=== PATIENT | male | born 1940 | race Caucasian/White ===

== ENCOUNTER 2016-03-14 16:41 | Emergency (ER) | payer MEDICARE ==
[2016-03-14 17:12] VITALS: BP 128/76
--- NOTE | 2016-03-14 19:23 | ERNOTE ---
Psychological HPI - Date Date of Service: 03/14/16 - General Chief Complaint: Anxiety Source: patient Exam Limitations: no limitations - Immun/Allergies/Home Medications Allergies/Adverse Reactions: Allergies codeine [Codeine] Allergy (Verified 03/14/16 17:12) Nausea ketorolac tromethamine [From Toradol] Adverse Reaction (Verified 03/14/16 17:12) Home Medications: HOME MEDICATIONS Multivitamins [Multivitamin Pawan] 1 cap PO DAILY 07/09/13 [Last Taken 09:00] Albuterol Sulfate [Albuterol Sulfate 2.5 MG/0.5ML] 2.5 mg IH Q6HRT #0 vial.neb 07/12/13 [Last Taken 04/29/15 09:00] Albuterol Sulfate [Ventolin HFA] 2 puff IH Q6H PRN 09/15/15 [Last Taken Unknown] Acetaminophen [Tylenol] 500 mg PO Q3H6XD PRN 09/30/15 [Last Taken Unknown] Theophylline Anhydrous [[place]-Dur] 300 mg PO BID tab.sr.12h 10/04/15 [Last Taken Unknown] Polyethylene Glycol 3350 [Miralax] 17 gm PO DAILY #30 btl 10/29/15 [Last Taken Unknown] ALPRAZolam [Xanax] 1 mg PO TID PRN 01/21/16 [Last Taken Unknown] Albuterol Sulfate/Ipratropium [Duoneb 2.5-0.5MG/3ML Soln] 3 ml IH QID 01/21/16 [ Last Taken Unknown] Potassium Chloride [Klor-Con 10] 10 meq PO MOWEFR 01/21/16 [Last Taken Unknown] Tiotropium [place] [Spiriva] 1 cap IH DAILY 01/21/16 [Last Taken Unknown] predniSONE [Prednisone] 10 mg PO DAILY 01/21/16 [Last Taken Unknown] Cephalexin Monohydrate [Keflex] 500 mg PO QID #40 cap 02/27/16 [Last Taken Unknown] Enalapril Maleate [Vasotec] 5 mg PO HS #30 tablet 03/14/16 [Last Taken Unknown] FLUoxetine HCL [Prozac] 20 mg PO DAILY #30 cap 03/14/16 [Last Taken Unknown] Furosemide [Lasix] 20 mg PO DAILY@1100 #14 tablet 03/14/16 [Last Taken Unknown] - History of Present Illness Narrative: Pt. comes in with c/o panic attack that lasted for three minutes this afternoon and has resolved at this time. Pt. is supposed to be on Prozac but has been out of his medications for two weeks. pt. staes taht he felt his heart racing, and was diaphoretic and scared during episode. Pt. states that this has happened in the past but the prozac kept it from occurring. Pt. also has a hx of COPD and CAD and has been out of his heart medications as well. Time Seen by Provider: 03/14/16 19:05 Review of Systems - Review of Systems Constitutional: Present: no symptoms reported. Absent: recent illness, fever, chills, weakness, fatigue, malaise EYE: Present: no symptoms reported ENT: Present: no symptoms reported Respiratory: Present: no symptoms reported. Absent: shortness of breath, cough , wheezing Cardiology: Present: no symptoms reported. Absent: chest pain, palpitations, edema Gastrointestinal/Abdominal: Present: no symptoms reported. Absent: nausea, vomiting, diarrhea Genitourinary: Present: no symptoms reported Musculoskeletal: Present: no symptoms reported. Absent: back pain, joint pain Skin: Present: no symptoms reported. Absent: rash, change in color Neurological: Present: anxiety. Absent: dizziness/light-headedness, numbness, tingling Endocrine: Present: no symptoms reported Psych: Present: anxiety All Other Systems: All systems neg except as marked - Patient's Past Medical History Patient History - Medical: Anxiety, Depression, GERD, Kidney stone, Osteoarthritis, Renal Failure, UTI'S Patient History - Cardiac/Respiratory: CHF, COPD, Hypertension Patient History - Cancer: No Hx of Cancer Patient History - Surgical Procedures: Cholecystectomy, Colonoscopy, EGD, T & A , Other - Family History Mother Family History - Medical: Family History - Cardiac/Respiratory: Coronary Heart Disease, Hypertension Father Family History - Medical: , Depression, Other Family History - Cardiac/Respiratory: History Unknown Sister Family History - Medical: History Unknown Family History - Cardiac/Respiratory: Asthma, Hypertension - Social History Living Situations: home Smoking Status: Never smoker Have you smoked in the past 12 months: No Do you dip or chew tobacco: No Patient requests Smoking Cessation Consult: No Initiate information on Smoking Cessation: No Alcohol Use: none Drug Use: none Physical Exam - Physical Exam General Appearance: Present: wd/wn, alert, no apparent distress Eye Exam: Normal inspection: bilateral, PERRL: bilateral, EOMI: bilateral Ears, Nose, Throat: Present: normal ENT inspection, hearing grossly normal, normal pharynx Neck: Present: normal inspection, nontender. Absent: lymphadenopathy (R), lymphadenopathy (L) Respiratory: Present: no respiratory distress, no accessory muscle use, chest nontender, decreased breath sounds Cardiovascular/Chest: Present: regular rate, rhythm, normal peripheral pulses, systolic murmur Gastrointestinal/Abdominal: Present: normal bowel sounds, nontender, soft, no organomegaly, distended. Absent: hepatomegaly Back Exam: Present: normal inspection, normal range of motion, no CVA tenderness , no vertebral tenderness Extremity Exam: Present: normal inspection, non-tender, no edema, normal range of motion Neurological Exam: Present: alert, oriented, normal mood/affect, no motor/ sensory deficits, insurance verification representative II-XII nml as tested, normal cerebellar test Skin Exam: Present: normal color, warm/dry. Absent: pallor, skin rash ED Progress - Date and Time Seen: Date and Time: 03/14/16 19:22 Discussed with pt. 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 03/14/16 20:[address] Oglesby and as pt. is asymptomatic at this time for his CHF we feel comfortable discharging him home with medication refills. - Results and Orders Patient's Lab Results:: I have reviewed the patient's lab results. - Vital Signs Patient's Vital Signs:: I have reviewed the patient's vital signs. Vital Signs: Vital Signs 03/14/16 17:10 Temperature 36.1 C L Pulse Rate 109 H Respiratory 19 Rate Blood Pressure 128/76 O2 Sat by Pulse 95 Oximetry - EKG EKG: other - SR with left axis deviation IVCD no acute changes EKG read: Interp. by me - Progress/Reassessment Chief Complaint: Anxiety Departure Clinical Impression: Chronic obstructive lung disease, Anxiety CHF (congestive heart failure) Qualifiers: Congestive heart failure type: unspecified congestive heart failure type Congestive heart failure chronicity: acute on chronic Qualified Code(s): I50.9 - Heart failure, unspecified - Departure Disposition: [facility] self-care Condition: Good Instructions: Panic Attacks, [id number], Heart Failure, [id number] Additional Instructions: Please follow up with Dr Samuel Bach as planned. Prescriptions: Enalapril Maleate [Vasotec] 5 mg PO HS #30 tablet FLUoxetine HCL [Prozac] 20 mg PO DAILY #30 cap Furosemide [Lasix] 20 mg PO DAILY@1100 #14 tablet
[2016-03-14 19:38] LABS: Hematocrit 43.4 % (42.0-52.0); Hemoglobin 13.8 gm/dL (13.5-18.0); Mean Cell Volume 94.3 fl (78-100); Mean Corpuscular Hgb Conc 31.8 g/dl (32-36); Mean Platelet Volume 10.1 fl (6.0-9.5); Neutrophil # 6.7 K/mm3 (1.3-6.0); Neutrophil % 76.1 % (42-75.0); Platelet Count 395 K/mm3 (150-450); Red Cell Distribution Width 14.8 % (11.5-14.0); White Blood Count 8.8 K/mm3 (4.0-10.5)
[2016-03-14 19:59] LABS: Albumin * 2.8 gm/dl (3.4-5.0); Anion Gap 12.1 mmol/L (6.8-13.8); BUN/Creatinine Ratio 15.4 (9.0-21.6); Bilirubin, Total 0.2 mg/dL (0.0-1.1); Ca. Corrected For Albumin 9.5 mg/dL (8.4-10.2); Calcium * 8.9 mg/dL (7.9-10.9); Carbon Dioxide 27.1 mmol/L (24-32.6); Potassium 5.2 mmol/L (3.4-4.6); Total Protein 6.3 gm/dL (6.2-8.2)
[2016-03-14 20:04] LABS: Troponin I 0.042 ng/ml (0.00-0.10)
[2016-03-14] MEDS ORDERED: FUROSEMIDE 40 MG TABLET PO ONE (20:22)
[2016-03-14] MEDS ORDERED: FUROSEMIDE 40 MG TABLET ONE (21:09)
[2016-03-14 21:37] LABS: Urine Bilirubin Negative (NEGATIVE); Urine Blood Negative /ul (NEGATIVE); Urine Ketone Negative (NEGATIVE); Urine Nitrite Negative (NEGATIVE); Urine Protein Negative (NEGATIVE); Urine Specific Gravity 1.025 SP.GR. (1.005-1.030); Urine Urobilinogen Normal (NORMAL); Urine pH 6.5 pH (5.0-7.0)
[2016-03-14 21:51] LABS: Urine Appearance Clear; Urine Bacteria None Seen; Urine Color Yellow; Urine RBC 0-5 /hpf (0-5); Urine WBC 0-5 /hpf (0-5)
== END 2016-03-14 22:15 | disposition home or self-care (01) ==
LOC: ER 16:41
DX: J44.9 Chronic obstructive pulmonary disease, unspecified (principal); F41.1 Generalized anxiety disorder; I50.9 Heart failure, unspecified; I10 Essential (primary) hypertension; F32.9 Major depressive disorder, single episode, unspecified

== ENCOUNTER 2016-03-17 10:16 | Emergency (ER) | payer MEDICARE ==
[2016-03-17] MEDS ORDERED: ACETAMINOPHEN 325 MG TABLET PO ONE (10:32)
[2016-03-17] MEDS ORDERED: HYDROcodone/ACETAMINOPHEN 1 EACH TABLET PO ONE (10:32)
--- NOTE | 2016-03-17 10:45 | ERNOTE ---
Lower Extremity HPI - Narrative Date of Service: 03/17/16 - General Lower Extremities Pain: knee: left Source: patient, EMS, RN notes reviewed Exam Limitations: other - Poor historian - Immun/Allergies/Home Medications Immunizations: IMMUNIZATION HX Immunizations Up to Date Yes History of Influenza Vaccine Yes Hx Pneumococcal Vaccination Yes Allergies/Adverse Reactions: Allergies Allergy/AdvReac Type Severity Reaction Status Date / Time codeine [Codeine] Allergy Nausea Verified 03/14/16 17:12 ketorolac tromethamine AdvReac Verified 03/14/16 17:12 [From Toradol] Home Medications: HOME MEDICATIONS Multivitamins [Multivitamin Pawan] 1 cap PO DAILY 07/09/13 [Last Taken 09:00] Albuterol Sulfate [Albuterol Sulfate 2.5 MG/0.5ML] 2.5 mg IH Q6HRT #0 vial.neb 07/12/13 [Last Taken 04/29/15 09:00] Albuterol Sulfate [Ventolin HFA] 2 puff IH Q6H PRN 09/15/15 [Last Taken Unknown] Acetaminophen [Tylenol] 500 mg PO Q3H6XD PRN 09/30/15 [Last Taken Unknown] Theophylline Anhydrous [Chato-Dur] 300 mg PO BID tab.sr.12h 10/04/15 [Last Taken Unknown] Polyethylene Glycol 3350 [Miralax] 17 gm PO DAILY #30 btl 10/29/15 [Last Taken Unknown] ALPRAZolam [Xanax] 1 mg PO TID PRN 01/21/16 [Last Taken Unknown] Albuterol Sulfate/Ipratropium [Duoneb 2.5-0.5MG/3ML Soln] 3 ml IH QID 01/21/16 [ Last Taken Unknown] Potassium Chloride [Klor-Con 10] 10 meq PO MOWEFR 01/21/16 [Last Taken Unknown] Tiotropium [place] [Spiriva] 1 cap IH DAILY 01/21/16 [Last Taken Unknown] predniSONE [Prednisone] 10 mg PO DAILY 01/21/16 [Last Taken Unknown] Cephalexin Monohydrate [Keflex] 500 mg PO QID #40 cap 02/27/16 [Last Taken Unknown] Enalapril Maleate [Vasotec] 5 mg PO HS #30 tablet 03/14/16 [Last Taken Unknown] FLUoxetine HCL [Prozac] 20 mg PO DAILY #30 cap 03/14/16 [Last Taken Unknown] Furosemide [Lasix] 20 mg PO DAILY@1100 #14 tablet 03/14/16 [Last Taken Unknown] - History of Present Illness Narrative: Reid is a 76-year-old male brought to the emergency department by ambulance for left knee pain that began this morning. He reports having trouble with the knee off and on for years, but he was getting a sweater out of his closet when the knee "went out on him" earlier this morning. He has since had difficulty bearing weight on the extremity. He reports taking 2 Advil for pain. He resides at the [facility]. He was last here 3 days ago for anxiety. Occurred: this morning Location of Incident: home Method of Injury: Reports: no apparent injury Modifying Factors - (Improves): Reports: pain medication, rest Modifying Factors - (Worsens): Reports: movement Associated Symptoms: Denies: snapping, popping sensation Other Injuries: Reports: none Subsequent Symptoms: Denies: sensory loss, numbness, motor loss Prior Treament: Reports: recently seen, similar symptoms before Review of Systems - Review of Systems Constitutional: Absent: fever, chills EYE: Present: no symptoms reported ENT: Present: no symptoms reported Respiratory: Present: no symptoms reported Cardiology: Present: edema. Absent: claudication Gastrointestinal/Abdominal: Present: no symptoms reported Genitourinary: Present: no symptoms reported Musculoskeletal: Present: joint pain. Absent: joint swelling Skin: Absent: lesions, lumps, change in color Neurological: Absent: weakness, numbness, tingling Endocrine: Present: no symptoms reported Hematologic/Lymphatic: Present: no symptoms reported Psych: Present: anxiety - Patient's Past Medical History Patient History - Medical: Anxiety, Depression, GERD, Kidney stone, Osteoarthritis, Renal Failure, UTI'S Patient History - Cardiac/Respiratory: CHF, COPD, Hypertension Patient History - Cancer: No Hx of Cancer Patient History - Surgical Procedures: Cholecystectomy, Colonoscopy, EGD, T & A , Other - Family History Mother Family History - Medical: Family History - Cardiac/Respiratory: Coronary Heart Disease, Hypertension Father Family History - Medical: , Depression, Other Family History - Cardiac/Respiratory: History Unknown Sister Family History - Medical: History Unknown Family History - Cardiac/Respiratory: Asthma, Hypertension - Social History Living Situations: assisted living Smoking Status: Former smoker Have you smoked in the past 12 months: No Alcohol Use: none Drug Use: none Physical Exam - Physical Exam General Appearance: Present: wd/wn, alert, no apparent distress, other - dressed appropriately but somewhat dirty with what appears to be stool on his sock Respiratory: Present: no respiratory distress, no accessory muscle use Cardiovascular/Chest: Present: normal peripheral pulses Extremity Exam: Present: normal inspection, decreased range of motion - Left knee, painful, pedal edema, extremity edema - mild pitting edema to feet, ankles and lower legs bilaterally, other - no effusion, deformity or discoloration to left knee, anterior knee tender to palpation just below patella. Absent: joint redness, joint swelling Neurological Exam: Present: alert, oriented, normal mood/affect, no motor/ sensory deficits Skin Exam: Present: normal color, warm/dry ED Progress - Vital Signs Patient's Vital Signs:: I have reviewed the patient's vital signs. Vital Signs: Vital Signs 03/17/16 10:19 Temperature 36.0 C L Pulse Rate 89 Respiratory 16 Rate Blood Pressure 100/44 O2 Sat by Pulse 97 Oximetry - X-Ray X-Ray #1 X-Ray: knee - Left Interpretation: Reviewed by me X-ray Comments: THREE VIEW LEFT KNEE COMPARISON: None Technique: AP, oblique, and lateral views of the knee were obtained. Findings: There is mild diffuse osteopenia. The joint spaces demonstrate mild diffuse narrowing without significant spurring. The patella is normally positioned on the AP and lateral projections. Again seen is a 10 mm osteochondral lesion involving the articulating cartilage of the medial femoral condyle. I do not see evidence for fracture, dislocation, or significant degenerative spurring. There is a small joint effusion. If there is clinical concern for internal derangement, followup MRI is recommended. IMPRESSION: 1. MILD DIFFUSE OSTEOPENIA. 2. SMALL JOINT EFFUSION. 3. 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 4. NO DEFINABLE ACUTE OSSEOUS ABNORMALITY. Electronically signed by Domingo Cummins M.D.. - Progress/Reassessment Chief Complaint: Lower Extremity Pain/ Injury Progress:: Improved Progress Note-Subjective: Some improvement in pain after meds, ambulated with cane with 1 assist from nursing staff. Orthopedics contacted for a follow up appt - patient had an appt. on Mar.09 but did not show up. Rescheduled for but will not be given another appt if he misses again. Departure Clinical Impression: Knee pain, left Qualifiers: Chronicity: chronic Qualified Code(s): M25.562 - Pain in left knee; G89.29 - Other chronic pain - Departure Disposition: [facility] self-care Condition: Good Instructions: Knee Pain, [id number] Additional Instructions: Take Tylenol for pain - you should not take Advil because of your kidney problems See orthopedics as scheduled - IF YOU MISS THIS APPOINTMENT THEY WILL NOT GIVE YOU ANOTHER ONE Referrals: Faheem Moe, PAC [[facility]] - 03/22/16 1:00 pm
[2016-03-17] MEDS ORDERED: ACETAMINOPHEN 325 MG TABLET ONE (11:15)
[2016-03-17] MEDS ORDERED: HYDROcodone/ACETAMINOPHEN 1 EACH TABLET ONE (11:15)
[2016-03-17 11:36] VITALS: BP 90/50
== END 2016-03-17 12:22 | disposition home or self-care (01) ==
LOC: ER 10:16
DX: M25.562 Pain in left knee (principal); G89.29 Other chronic pain; Z87.891 Personal history of nicotine dependence; Z90.49 Acquired absence of other specified parts of digestive tract

== ENCOUNTER 2016-05-25 17:54 | Emergency (ER) | payer MEDICARE ==
--- OUTSIDE RECORDS SUMMARY | 2016-05-25 18:09 | XMS REPORT | Continuity of Care Document ---
:1940 Author Organization [facility] ([facility]) Address [place] [address] Phone [phone] Care Team Providers Name Role Phone Lela Hensley Primary Care Provider [phone] Source Comments This disclosure is being made pursuant to the Care Everywhere program, applicable federal and state laws, and may not contain all informaitonavailable regarding this patient.[facility] ([facility]) Active Allergies and Adverse Reactions Allergen Noted Date Severity Reactions Comments Codeine 05/20/2012 Nausea & Vomiting Current Medications Prescription Sig. Disp. Refills Start Date End Date Status theophylline (GENNA-DUR) Take 300 mg by Active 300 mg XR tablet mouth 2 times daily. ALPRAZolam (XANAX) 1 mg Take 1 mg by mouth Active tablet 2 times daily. fluoxetine (PROZAC) 40 mg Take 40 mg by Active capsule mouth daily. enalapril 5 mg tablet Take 5 mg by mouth Active daily. predniSONE 5 mg tablet Take 5 mg by mouth Active daily. 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 COPD (chronic obstructive pulmonary disease) 11/09/2010 GERD (gastroesophageal reflux disease) 11/09/2010 Diverticulitis 11/09/2010 Anxiety 11/09/2010 Social History Tobacco Use Types Packs/Day Years Used Date Former Smoker Cigarettes 2 40 Quit: 03/05/1992 Smokeless Tobacco: Never Used Alcohol Use Drinks/Week oz/Week Comments No prior abuse Last Filed Vital Signs Vital Sign Reading Time Taken Blood Pressure 110/70 11/09/2010 9:32 AM CDT Pulse 96 11/09/2010 9:32 AM CDT Temperature 36.6 C (97.9 F) 11/09/2010 9:32 AM CDT Respiratory Rate 20 11/09/2010 9:32 AM CDT Height 1.778 m (5' 10") 10/16/2009 12:30 PM CDT Weight 121.564 kg (268 lb) 11/09/2010 9:32 AM CDT Body Mass Index 38.45 11/09/2010 9:32 AM CDT Oxygen Saturation 96% 10/16/2009 12:30 PM CDT Plan of Care Health Maintenance Due Date Last Done Comments Hepatitis B Vaccine (1 of 3 - Primary Series) 1940 Tdap Vaccine 01/08/1951 Lipid Disorder Screening 01/08/1958 Td Vaccine 01/08/1958 Colonoscopy 01/08/1990 Zoster Vaccine 2000 Pneumococcal Vaccine (1 of 2 - PCV13) 01/08/2005 Influenza Vaccine: Seasonal (#1) 10/04/2015 Results from Last 3 Months Not on file
--- OUTSIDE RECORDS SUMMARY | 2016-05-25 18:09 | XMS REPORT | Continuity of Care Document ---
:1940 Author Organization [employer] [place] [address] Care Team Providers Name Role Phone Lela Hensley Primary Care Provider [phone] Source Comments This disclosure is being made pursuant to the [employer] program and maynot contain all information available regarding this patient.[employer] Active Allergies and Adverse Reactions Allergen Noted Date Severity Reactions Comments Codeine 12/08/2013 Other (See Comments) Current Medications Be aware that medications may not be up to date as of this document. Alwaysverify current medications with the patient. Prescription Sig. Disp. Refills Start Date End Date Status albuterol (PROVENTIL HFA) Inhale into the Active 108 (90 BASE) MCG/ACT lungs. 2 puff(s) 2 inhaler times per day and as needed, not to exceed 4 times per day ALPRAZolam (XANAX) 0.5 MG Take 0.5 mg by Active tablet mouth. 1 tab(s) By Mouth 2 Times A Day prn Coenzyme Q-10 100 MG Take by mouth. Active capsule fluoxetine (PROZAC) 40 MG Take 40 mg by Active capsule mouth. 1 capsule(s) by mouth before noon predniSONE (DELTASONE) 5 Take 5 mg by mouth. Active MG tablet 1 tab(s) By Mouth Daily guaifenesin (BIDEX) 400 Take 300 mg by Active MG TABS mouth. Active Problems Not on file Social History Tobacco Use Types Packs/Day Years Used Date Former Smoker Last Filed Vital Signs Vital Sign Reading Time Taken Blood Pressure 110/70 12/02/2012 10:22 AM CDT Pulse 88 08/19/2012 11:14 AM CDT Temperature 37.8 C (100.1 F) 08/19/2012 11:17 AM CDT Respiratory Rate 20 08/19/2012 11:14 AM CDT Height 1.778 m (5' 10") 12/02/2012 10:22 AM CDT Weight 87.091 kg (192 lb) 12/02/2012 10:22 AM CDT Body Mass Index 27.55 12/02/2012 10:22 AM CDT Oxygen Saturation - - Plan of Care Health Maintenance Due Date Last Done Comments Tetanus/Pertussis (1 - Tdap) 01/08/1959 Colonoscopy 01/08/1990 Well Adult Visit 01/08/1990 Zoster Vaccine 60+ 2000 Pneumococcal Low/Medium Risk 65+ (1 of 2 - PCV13) 01/08/2005 Retired-INFLUENZA VACCINE 11/04/2015 Results from Last 3 Months Not on file
--- NOTE | 2016-05-25 18:14 | ERNOTE ---
Dyspnea - General Presenting Symptoms: shortness of breath Time Seen by Provider: 05/25/16 17:57 Source: patient Exam Limitations: no limitations - Immun/Allergies/Home Medications Immunizations: IMMUNIZATION HX Immunizations Up to Date Yes History of Influenza Vaccine Yes Hx Pneumococcal Vaccination Yes Allergies/Adverse Reactions: Allergies codeine [Codeine] Allergy (Verified 05/25/16 18:14) Nausea ketorolac tromethamine [From Toradol] Adverse Reaction (Verified 05/25/16 18:14) Home Medications: HOME MEDICATIONS Multivitamins [Multivitamin [place]aw[place]] 1 cap PO DAILY 07/09/13 [Last Taken 09:00] Albuterol Sulfate [Albuterol Sulfate 2.5 MG/0.5ML] 2.5 mg IH Q6HRT #0 vial.neb 07/12/13 [Last Taken 04/29/15 09:00] Albuterol Sulfate [Ventolin HFA] 2 puff IH Q6H PRN 09/15/15 [Last Taken Unknown] Acetaminophen [Tylenol] 500 mg PO Q3H PRN 09/30/15 [Last Taken Unknown] Theophylline Anhydrous [[place]-Dur] 300 mg PO BID tab.sr.12h 10/04/15 [Last Taken Unknown] ALPRAZolam [Xanax] 1 mg PO TID PRN 01/21/16 [Last Taken Unknown] Albuterol Sulfate/Ipratropium [Duoneb 2.5-0.5MG/3ML Soln] 3 ml IH QID 01/21/16 [ Last Taken Unknown] Tiotropium [place] [Spiriva] 1 cap IH DAILY 01/21/16 [Last Taken Unknown] predniSONE [Prednisone] 10 mg PO DAILY 01/21/16 [Last Taken Unknown] Enalapril Maleate [Vasotec] 5 mg PO HS #30 tablet 03/14/16 [Last Taken Unknown] FLUoxetine HCL [Prozac] 20 mg PO DAILY #30 cap 03/14/16 [Last Taken Unknown] Fluconazole [Diflucan] 200 mg PO DAILY 05/25/16 [Last Taken Unknown] Furosemide [Lasix] 40 mg PO DAILY 05/25/16 [Last Taken Unknown] Guaifenesin/Dextromethorphan [Mucinex Dm ER 600-30 mg Tablet] 1 each PO BID [Last Taken Unknown] Nystatin 30 gm TP BID 05/25/16 [Last Taken Unknown] Oxycodone HCl/Acetaminophen [Oxycodone-Acetaminophen 5-325] 1 each PO QID PRN [Last Taken Unknown] Polyethylene Glycol 3350 [Gavilax] 17 gm PO DAILY 05/25/16 [Last Taken Unknown] Tamsulosin HCl [Flomax] 0.4 mg PO DAILY 05/25/16 [Last Taken Unknown] - History of Present Illness Narrative: Patient started to have a cough and shortness of breath yesterday, does not bring up much sputum, denies any chest pain. In the [facility] he had O2 saturations in the 70's and 80's. He has a history of COPD, received breathing treatments by EMS Date (Duration): 05/24/16 Treatment FIELD SERVICES DIRECTOR: paramedics, albuterol Initiating event: Reports: upper resp illness. Denies: out of meds Frequency of episodes: Reports: occassional episodes Modifying Factors - (Improves): Reports: activity Modifying Factors (Worsens): Reports: activity Associated Symptoms-Dyspnea: Denies: fever/chills, sweating Prior Treatment: Denies: recently seen, currently on antibiotics Review of Systems - Review of Systems Constitutional: Absent: fever ENT: Present: nasal drainage. Absent: sore throat Respiratory: Present: See HPI, shortness of breath, cough Cardiology: Absent: chest pain Gastrointestinal/Abdominal: Absent: nausea, vomiting, diarrhea, abdominal pain Genitourinary: Present: other - unchanged chronic problems Neurological: Absent: headache, dizziness/light-headedness - Patient's Past Medical History Patient History - Medical: Anxiety, Depression, GERD, Kidney stone, Osteoarthritis, Renal Failure, UTI'S Patient History - Cardiac/Respiratory: COPD Patient History - Cancer: No Hx of Cancer Patient History - Surgical Procedures: Cholecystectomy, Colonoscopy, EGD, T & A , Other Patient History - Other: None - Family History Mother Family History - Medical: Family History - Cardiac/Respiratory: Coronary Heart Disease, Hypertension Father Family History - Medical: , Depression, Other Family History - Cardiac/Respiratory: History Unknown Sister Family History - Medical: History Unknown Family History - Cardiac/Respiratory: Asthma, Hypertension - Social History Living Situations: assisted living Abuse History: No History of abuse Psych History: Hx of Anxiety, Hx of Depression, Current tx/ever been on anti- depressants or anti-anxiety meds Smoking Status: Former smoker Alcohol Use: none Drug Use: none - Immunizations Immunizations Up to Date: Yes Hx Pneumococcal Vaccination: Yes History of Influenza Vaccine: Yes Physical Exam - Physical Exam General Appearance: Present: wd/wn, alert, no apparent distress, obese Eye Exam: Normal inspection: bilateral Ears, Nose, Throat: Present: normal ENT inspection, normal pharynx Neck: Present: normal inspection Respiratory: Present: no accessory muscle use, respiratory distress - slight, decreased breath sounds, expiration (prolonged), wheezing - few, other - talks in 7word sentences Cardiovascular/Chest: Present: regular rate, rhythm, no murmur Gastrointestinal/Abdominal: Present: normal bowel sounds, nontender, nondistended, soft Extremity Exam: Present: no edema Neurological Exam: Present: alert, oriented, normal mood/affect Skin Exam: Present: normal color, warm/dry ED Progress - Results and Orders Patient's Lab Results:: I have reviewed the patient's lab results. - Vital Signs Patient's Vital Signs:: I have reviewed the patient's vital signs. Vital Signs: Vital Signs 05/25/16 17:54 Temperature 36.7 C Pulse Rate 100 Respiratory 19 Rate O2 Sat by Pulse 97 Oximetry - EKG EKG: NSR, unchanged from - 03/14/2016, other - intraventriclar conduction delay EKG read: Interp. by me - X-Ray X-Ray #1 X-Ray: chest - chronic no acute changes Interpretation: Reviewed by me - Progress/Reassessment Chief Complaint: Dyspnea Progress Note-Subjective: 05/25/16 18:33 Patient comfortable and talking, o2 sat 96 on RA 05/25/16 19:34 discussed results and plan to send patient back on steroid boost, was started on mucinex earlier today patient calm and comfortable, O2 sat 96-97% on RA when talking about transfer to care center patient gets a coughing fit. Departure Clinical Impression: COPD exacerbation - [place] [facility] [place]
[2016-05-25 18:20] LABS: Hematocrit 42.4 % (42.0-52.0); Mean Cell Volume 93.4 fl (78-100); Mean Corpuscular Hemoglobin 30.8 pg (27-31); Mean Platelet Volume 11.1 fl (6.0-9.5); Neutrophil # 5.7 K/mm3 (1.3-6.0); Neutrophil % 72.7 % (42-75.0); Platelet Count 196 K/mm3 (150-450); Red Blood Count 4.54 M/mm3 (4.7-6.0); Red Cell Distribution Width 14.9 % (11.5-14.0); White Blood Count 7.8 K/mm3 (4.0-10.5)
[2016-05-25] MEDS ORDERED: predniSONE 20 MG TABLET ONE (18:41)
[2016-05-25] MEDS: predniSONE 20 MG TABLET PO ONE (18:43)
[2016-05-25 18:44] LABS: Albumin * 3.7 gm/dl (3.4-5.0); Anion Gap 17.1 mmol/L (6.8-13.8); BUN/Creatinine Ratio 14.7 (9.0-21.6); Bilirubin, Total 0.6 mg/dL (0.0-1.1); Ca. Corrected For Albumin 9.2 mg/dL (8.4-10.2); Calcium * 9.3 mg/dL (7.9-10.9); Carbon Dioxide 25.9 mmol/L (24-32.6); Total Protein 7.5 gm/dL (6.2-8.2)
[2016-05-25 21:01] VITALS: BP 124/81
== END 2016-05-25 21:55 ==
LOC: ER 17:54
DX: J44.1 Chronic obstructive pulmonary disease with (acute) exacerbation (principal); Z87.891 Personal history of nicotine dependence

== ENCOUNTER 2016-05-31 12:26 | Inpatient (IN) | payer MEDICARE ==
--- NOTE | 2016-05-31 12:51 | ERNOTE ---
Medical Problem HPI - General Chief Complaint: Nausea/Vomiting Time Seen by Provider: 05/31/16 12:41 Source: patient, EMS Exam Limitations: no limitations - Immun/Allergies/Home Medications Immunizations: IMMUNIZATION HX Immunizations Up to Date Yes History of Influenza Vaccine Yes Hx Pneumococcal Vaccination Yes Allergies/Adverse Reactions: Allergies codeine [Codeine] Allergy (Verified 05/31/16 13:50) Nausea ketorolac tromethamine [From Toradol] Adverse Reaction (Verified 05/31/16 13:50) Home Medications: HOME MEDICATIONS Multivitamins [Multivitamin Pawan] 1 cap PO DAILY 07/09/13 [Last Taken 09:00] Albuterol Sulfate [Albuterol Sulfate 2.5 MG/0.5ML] 2.5 mg IH Q6HRT #0 vial.neb 07/12/13 [Last Taken 04/29/15 09:00] Albuterol Sulfate [Ventolin HFA] 2 puff IH Q6H PRN 09/15/15 [Last Taken Unknown] Acetaminophen [Tylenol] 500 mg PO Q3H PRN 09/30/15 [Last Taken Unknown] Theophylline Anhydrous [[place]] 300 mg PO BID tab.sr.12h 10/04/15 [Last Taken Unknown] ALPRAZolam [Xanax] 1 mg PO TID PRN 01/21/16 [Last Taken Unknown] Albuterol Sulfate/Ipratropium [Duoneb 2.5-0.5MG/3ML Soln] 3 ml IH QID 01/21/16 [ Last Taken Unknown] Tiotropium [place] [Spiriva] 1 cap IH DAILY 01/21/16 [Last Taken Unknown] predniSONE [Prednisone] 10 mg PO DAILY 01/21/16 [Last Taken Unknown] Enalapril Maleate [Vasotec] 5 mg PO HS #30 tablet 03/14/16 [Last Taken Unknown] FLUoxetine HCL [Prozac] 20 mg PO DAILY #30 cap 03/14/16 [Last Taken Unknown] Fluconazole [Diflucan] 200 mg PO DAILY 05/25/16 [Last Taken Unknown] Furosemide [Lasix] 40 mg PO DAILY 05/25/16 [Last Taken Unknown] Nystatin 30 gm TP BID 05/25/16 [Last Taken Unknown] Polyethylene Glycol 3350 [Gavilax] 17 gm PO DAILY 05/25/16 [Last Taken Unknown] Tamsulosin HCl [Flomax] 0.4 mg PO DAILY 05/25/16 [Last Taken Unknown] guaiFENesin/DEXTROMETHORPHAN [Mucinex Dm ER 600-30 mg Tablet] 1 each PO BID [Last Taken Unknown] oxyCODONE HCL/ACETAMINOPHEN [Oxycodone-Acetaminophen 5-325] 1 each PO QID PRN [Last Taken Unknown] - History of Present History Narrative: Patient started to develop as epigastric abdominal pain with nausea and vomiting at approximately midnight last night. He describes the pain as cramping and burning moderate to severe in intensity and has not been able keep anything down for approximately the last 12 hours. Timing: constant Severity: moderate Modifying Factors - (Worsens): Present: eating Review of Systems - Review of Systems Constitutional: Present: See HPI EYE: Present: no symptoms reported ENT: Present: no symptoms reported Respiratory: Present: no symptoms reported Cardiology: Present: no symptoms reported Gastrointestinal/Abdominal: Present: no symptoms reported, nausea, vomiting, abdominal pain Genitourinary: Present: no symptoms reported Musculoskeletal: Present: no symptoms reported Skin: Present: no symptoms reported Neurological: Present: no symptoms reported Endocrine: Present: no symptoms reported Hematologic/Lymphatic: Present: no symptoms reported Psych: Present: no symptoms reported - Patient's Past Medical History Patient History - Medical: Anxiety, Depression, GERD, Kidney stone, Osteoarthritis, Renal Failure, UTI'S Patient History - Cardiac/Respiratory: COPD Patient History - Cancer: No Hx of Cancer Patient History - Surgical Procedures: Cholecystectomy, Colonoscopy, EGD, T & A , Other Patient History - Other: None - Family History Mother Family History - Medical: Family History - Cardiac/Respiratory: Coronary Heart Disease, Hypertension Father Family History - Medical: , Depression, Other Family History - Cardiac/Respiratory: History Unknown Sister Family History - Medical: History Unknown Family History - Cardiac/Respiratory: Asthma, Hypertension - Social History Living Situations: [facility] Abuse History: No History of abuse Psych History: Hx of Anxiety, Hx of Depression, Current tx/ever been on anti- depressants or anti-anxiety meds Smoking Status: Former smoker Alcohol Use: none Drug Use: none - Immunizations Immunizations Up to Date: Yes Hx Pneumococcal Vaccination: Yes History of Influenza Vaccine: Yes Physical Exam - Physical Exam General Appearance: Present: wd/wn, alert, moderate distress Eye Exam: Normal inspection: bilateral, PERRL: bilateral Ears, Nose, Throat: Present: normal ENT inspection, H, normal pharynx Neck: Present: normal inspection, nontender Respiratory: Present: no respiratory distress, no accessory muscle use, chest nontender, decreased breath sounds Cardiovascular/Chest: Present: regular rate, rhythm, no murmur, normal peripheral pulses Gastrointestinal/Abdominal: Present: tenderness, abnormal bowel sounds, distended, other - increased tympany Rectal Exam: Present: deferred Back Exam: Present: normal inspection, normal range of motion Extremity Exam: Present: normal inspection, non-tender, no edema, normal range of motion Neurological Exam: Present: alert, oriented, normal mood/affect Skin Exam: Present: normal color, warm/dry Lymphatic Exam: Present: no adenopathy ED Progress - Results and Orders Patient's Lab Results:: I have reviewed the patient's lab results. - Vital Signs Patient's Vital Signs:: I have reviewed the patient's vital signs. Vital Signs: Vital Signs 05/31/16 12:29 Temperature 36.5 C Pulse Rate 98 Respiratory 26 H Rate Blood Pressure 133/53 - X-Ray X-Ray #1 X-Ray: abdomen Interpretation: Reviewed by me - CT/Ultrasound CT/Ultrasound Narrative: CT results were reviewed and discussed with the patient and Dr. Bruce - Progress/Reassessment Chief Complaint: Nausea/Vomiting Progress:: Unchanged Plan - Plan Plan: Patient appears to have a gastric gallbladder obstruction of unknown etiology. Because not able to keep anything down with fairly extensive vomiting he'll need to be admitted to the hospital. An NG tube was put in place and he'll be started on low intermittent suction while he is on the floor. I receive a surgical consult as an EGD might be appropriate at this juncture. Departure - Departure Clinical Impression: Gastric outlet obstruction Disposition: [facility] Condition: Fair Referrals: Grabiel Stoddard MD [Primary Care Provider] -
--- OUTSIDE RECORDS SUMMARY | 2016-05-31 12:52 | XMS REPORT | Continuity of Care Document ---
:1940 Author Organization [facility] [place] [address] Care Team Providers Name Role Phone Lela Hensley Primary Care Provider [phone] Source Comments This disclosure is being made pursuant to the [employer] program and maynot contain all information available regarding this patient.[facility] Active Allergies and Adverse Reactions Allergen Noted [...]
--- OUTSIDE RECORDS SUMMARY | 2016-05-31 12:52 | XMS REPORT | Continuity of Care Document ---
:1940 Author Organization [facility] ([facility]) Address [place] [address] Phone [phone] Care Team Providers Name Role Phone Lela Hensley Primary Care Provider [phone] Source Comments This disclosure is being made pursuant to the Care Everywhere program, applicable federal and state laws, and may not contain all informaitonavailable regarding this patient.[facility] ([facility]) Active Allergies and Adverse Reactions Allergen Noted [...]
[2016-05-31 12:58] LABS: Hematocrit 46.2 % (42.0-52.0); Hemoglobin 15.3 gm/dL (13.5-18.0); Mean Corpuscular Hemoglobin 30.8 pg (27-31); Mean Corpuscular Hgb Conc 33.1 g/dl (32-36); Mean Platelet Volume 10.8 fl (6.0-9.5); Neutrophil # 10.6 K/mm3 (1.3-6.0); Neutrophil % 79.3 % (42-75.0); Platelet Count 226 K/mm3 (150-450); Red Blood Count 4.97 M/mm3 (4.7-6.0); Red Cell Distribution Width 14.4 % (11.5-14.0); White Blood Count 13.3 K/mm3 (4.0-10.5)
[2016-05-31 13:11] LABS: Albumin * 3.5 gm/dl (3.4-5.0); Anion Gap 13.5 mmol/L (6.8-13.8); BUN/Creatinine Ratio 12.8 (9.0-21.6); Bilirubin, Total 0.5 mg/dL (0.0-1.1); Ca. Corrected For Albumin 9.6 mg/dL (8.4-10.2); Calcium * 9.5 mg/dL (7.9-10.9); Carbon Dioxide 31.3 mmol/L (24-32.6); Potassium 3.8 mmol/L (3.4-4.6); Total Protein 6.9 gm/dL (6.2-8.2)
[2016-05-31] MEDS ORDERED: DIATRIZOATE MEGLU/DIATRIZO SOD 30 ML BTL PO ONE (13:31)
[2016-05-31] MEDS ORDERED: NORMAL SALINE 500 ML in NORMAL SALINE 1,000 ML IV ONE (13:34)
[2016-05-31] MEDS ORDERED: DIATRIZOATE MEGLU/DIATRIZO SOD 30 ML BTL ONE (13:34)
[2016-05-31] MEDS ORDERED: ALBUTEROL SULFATE/IPRATROPIUM 3 ML NEBU IH ONE ×2 (14:58)
[2016-05-31] MEDS ORDERED: NORMAL SALINE 1,000 ML IV ONE (15:51)
[2016-05-31 15:53] LABS: Urine Bilirubin Negative (NEGATIVE); Urine Blood Negative /ul (NEGATIVE); Urine Ketone 5 mg/dL (NEGATIVE); Urine Nitrite Negative (NEGATIVE); Urine Protein 15 mg/dL (NEGATIVE); Urine Specific Gravity 1.015 SP.GR. (1.005-1.030); Urine Urobilinogen 4 EU/dl (NORMAL); Urine pH 8.5 pH (5.0-7.0)
[2016-05-31 16:13] LABS: Urine Amorphous Sediment Moderate - 2+ (NONE-FEW); Urine Appearance Slightly Cloudy; Urine Bacteria TRACE; Urine Color Yellow; Urine RBC None Seen /hpf (0-5); Urine WBC 0-5 /hpf (0-5)
--- OUTSIDE RECORDS SUMMARY | 2016-05-31 16:53 | XMS REPORT | Continuity of Care Document ---
:1940 Author Organization [facility] [place] [address] Care Team Providers Name Role Phone Lela Hensley Primary Care Provider [phone] Source Comments This disclosure is being made pursuant to the [employer] program and maynot contain all information available regarding this patient.[facility] Active Allergies and Adverse Reactions Allergen Noted [...]
--- OUTSIDE RECORDS SUMMARY | 2016-05-31 16:53 | XMS REPORT | Continuity of Care Document ---
:1940 Author Organization [facility] ([facility]) [place] [address] Phone [phone] Care Team Providers Name Role Phone Lela Hensley Primary Care Provider [phone] Source Comments This disclosure is being made pursuant to the Care Everywhere program, applicable federal and state laws, and may not contain all informaitonavailable regarding this patient.[facility] ([facility]) Active Allergies and Adverse Reactions Allergen [...]
[2016-05-31] MEDS ORDERED: LORazepam 2 MG/ML DISP.SYRIN IV PRN (17:17)
[2016-05-31] MEDS ORDERED: HYDROmorphone HCL 1 MG/ML DISP.SYRIN IV PRN (17:17)
[2016-05-31] MEDS: POTASSIUM CHLORIDE 20 MEQ in 0.5 NORMAL SALINE 1,000 ML IV SCH (18:13)
[2016-05-31] MEDS: ALBUTEROL SULFATE/IPRATROPIUM 3 ML NEBU IH SCH (18:18)
[2016-05-31] MEDS ORDERED: METHYLPREDNISOLONE SOD SUCC/PF 40 MG/ML VIAL IV ONE (18:33)
--- NOTE | 2016-05-31 18:49 | HP ---
Chief Complaint - Chief Complaint Date of Service: 05/31/16 Time of Service: 18:35 Chief Complaint: Vomiting History of Present Illness: This is a 76 year old skilled nursing resident who developed epigastric abdominal pain with nausea and vomiting at approximately midnight last night. He described the pain as cramping and burning, moderate to severe in intensity and has not been able keep anything down since then. For this reason he was transported to the [facility] ER, where he was diagnosed with a possible functional or mechanical gastric outlet obstruction and possible rectosigmoid stool impaction. An NG tube was placed in the ER. His lactic acid level was elevated in the ER, but has responded well to IV fluids. There has been no source of infection discovered thus far. - Patient's Past Medical History Patient History - Medical: Anxiety, Depression, GERD, Kidney stone, Osteoarthritis, Renal Failure, UTI'S Patient History - Cardiac/Respiratory: COPD Patient History - Cancer: No Hx of Cancer Patient History - Surgical Procedures: Cholecystectomy, Colonoscopy, EGD, T & A , Other Patient History - Other: None - Family History Mother Family History - Medical: Family History - Cardiac/Respiratory: Coronary Heart Disease, Hypertension Father Family History - Medical: , Depression, Other Family History - Cardiac/Respiratory: History Unknown Sister Family History - Medical: History Unknown Family History - Cardiac/Respiratory: Asthma, Hypertension - Social History Living Situations: skilled nursing Abuse History: No History of abuse Psych History: Hx of Anxiety, Hx of Depression, Current tx/ever been on anti- depressants or anti-anxiety meds Smoking Status: Former smoker Alcohol Use: none Drug Use: none - Immunizations Immunizations Up to Date: Yes Hx Pneumococcal Vaccination: Yes History of Influenza Vaccine: Yes Review Of Systems (GEN) - Review of Systems Generalized/Overall Review: Present: Malaise EENTM: Present: No Symptoms Reported Respiratory: Present: No Symptoms Reported Cardiac: Present: No Symptoms Reported Abdominal: Present: Nausea, Abdominal Pain Genitourinary: Present: No Symptoms Reported Musculoskeletal: Present: No Symptoms Reported Neurological: Present: No Symptoms Reported Skin: Present: No Symptoms Reported Endocrine: Present: No Symptoms Reported Misc: All systems neg except as marked Immunizations: IMMUNIZATION HX Immunizations Up to Date Yes History of Influenza Vaccine Yes Hx Pneumococcal Vaccination Yes Allergies/Adverse Reactions: Allergies Allergy/AdvReac Type Severity Reaction Status Date / Time codeine [Codeine] Allergy Nausea Verified 05/31/16 13:50 ketorolac tromethamine AdvReac Verified 05/31/16 13:50 [From Toradol] Home Medications: HOME MEDICATIONS Multivitamins [Multivitamin [place]] 1 cap PO DAILY 07/09/13 [Last Taken 09:00] Albuterol Sulfate [Albuterol Sulfate 2.5 MG/0.5ML] 2.5 mg IH Q6HRT #0 vial.neb 07/12/13 [Last Taken 04/29/15 09:00] Albuterol Sulfate [Ventolin HFA] 2 puff IH Q6H PRN 09/15/15 [Last Taken Unknown] Acetaminophen [Tylenol] 500 mg PO Q3H PRN 09/30/15 [Last Taken Unknown] Theophylline Anhydrous [[place]-Dur] 300 mg PO BID tab.sr.12h 10/04/15 [Last Taken Unknown] ALPRAZolam [Xanax] 1 mg PO TID PRN 01/21/16 [Last Taken Unknown] Albuterol Sulfate/Ipratropium [Duoneb 2.5-0.5MG/3ML Soln] 3 ml IH QID 01/21/16 [ Last Taken Unknown] Tiotropium [place] [Spiriva] 1 cap IH DAILY 01/21/16 [Last Taken Unknown] predniSONE [Prednisone] 10 mg PO DAILY 01/21/16 [Last Taken Unknown] Enalapril Maleate [Vasotec] 5 mg PO HS #30 tablet 03/14/16 [Last Taken Unknown] FLUoxetine HCL [Prozac] 20 mg PO DAILY #30 cap 03/14/16 [Last Taken Unknown] Fluconazole [Diflucan] 200 mg PO DAILY 05/25/16 [Last Taken Unknown] Furosemide [Lasix] 40 mg PO DAILY 05/25/16 [Last Taken Unknown] Nystatin 30 gm TP BID 05/25/16 [Last Taken Unknown] Polyethylene Glycol 3350 [Gavilax] 17 gm PO DAILY 05/25/16 [Last Taken Unknown] Tamsulosin HCl [Flomax] 0.4 mg PO DAILY 05/25/16 [Last Taken Unknown] guaiFENesin/DEXTROMETHORPHAN [Mucinex Dm ER 600-30 mg Tablet] 1 each PO BID [Last Taken Unknown] oxyCODONE HCL/ACETAMINOPHEN [Oxycodone-Acetaminophen 5-325] 1 each PO QID PRN [Last Taken Unknown] Exam - Exam Vital Signs: Vital Signs - Last Taken Selected Entries 05/31/16 05/31/16 05/31/16 15:38 16:19 17:02 Temperature 36.5 C 36.8 C Temperature Tympanic Tympanic Source Pulse Rate 91 106 H 100 Respiratory 21 H 30 H 18 Rate Blood Pressure 97/79 108/62 145/75 O2 Sat by Pulse 93 92 99 Oximetry Oxygen Delivery Nasal Cannula Room Air Nasal Cannula Method Oxygen Flow 1.5 1.5 Rate 05/31/16 18:18 Temperature Temperature Source Pulse Rate 97 Respiratory 20 Rate Blood Pressure O2 Sat by Pulse 99 Oximetry Oxygen Delivery Nasal Cannula Method Oxygen Flow 2 Rate Constitutional: Present: Alert, Oriented x3, Cooperative, Well developed, Well nourished, Mild distress, Looks Older than stated age ENT Exam: Present: normal ENT inspection, dry mucous membranes Eye Exam: bilateral eye: normal inspection, PERRL, EOMI Neck: Present: normal inspection Back Exam: Present: normal inspection Respiratory: Present: lungs clear, no respiratory distress, decreased breath sounds Cardiovascular/Chest: Present: regular rate, rhythm, no chest tenderness, no edema Abdomen: Present: Normal bowel sounds, no rebound tenderness, no hepatospenomegaly, no masses, tender, distended Extremity: Present: lower extremity edema Skin Exam: Present: no cyanosis, cool/dry Neurologic: Present: alert, oriented x 3 Appearance: Present: appropriate appearance, neat Eye contact: Present: cooperative Diagnostic Studies: Laboratory Results WBC 13.3 K/mm3 (4.0-10.5) H 05/31/16 12:50 RBC 4.97 M/mm3 (4.7-6.0) 05/31/16 12:50 Hgb 15.3 gm/dL (13.5-18.0) 05/31/16 12:50 Hct 46.2 % (42.0-52.0) 05/31/16 12:50 MCV 93.0 fl (78-100) 05/31/16 12:50 MCH 30.8 pg (27-31) 05/31/16 12:50 MCHC 33.1 g/dl (32-36) 05/31/16 12:50 RDW 14.4 % (11.5-14.0) H 05/31/16 12:50 Plt Count 226 K/mm3 (150-450) 05/31/16 12:50 MPV 10.8 fl (6.0-9.5) H 05/31/16 12:50 Immature Gran % (Auto) 0.90 % (0.001-0.429) H 05/31/16 12:50 Immature Gran # (Auto) 0.12 K/mm3 (0.000-0.0310) H 05/31/16 12:50 Neutrophils % 79.3 % (42-75.0) H 05/31/16 12:50 Lymphocytes % 10.6 % (20-51) L 05/31/16 12:50 Monocytes % 7.9 % (0.0-9) 05/31/16 12:50 Eosinophils % 0.8 % (0.0-3.0) 05/31/16 12:50 Basophils % 0.5 % (0.0-1.0) 05/31/16 12:50 Nucleated RBC % 0.0 k/mm3 (0-1) 05/31/16 12:50 Neutrophils # 10.6 K/mm3 (1.3-6.0) H 05/31/16 12:50 Lymphocytes # 1.4 k/mm3 (1.5-3.5) L 05/31/16 12:50 Monocytes # 1.1 k/mm3 (0.0-1.0) H 05/31/16 12:50 Eosinophils # 0.1 k/mm3 (0.0-0.7) 05/31/16 12:50 Absolute Basophils 0.1 k/mm3 (0.0-0.1) 05/31/16 12:50 Sodium 146 mmol/L (132-142) H 05/31/16 12:50 Plasma Sodium 146 mmol/L (130-142) H 05/31/16 12:50 Potassium 3.8 mmol/L (3.4-4.6) 05/31/16 12:50 Chloride 105 mmol/L (97-106) 05/31/16 12:50 Carbon Dioxide 31.3 mmol/L (24-32.6) 05/31/16 12:50 Anion Gap 13.5 mmol/L (6.8-13.8) 05/31/16 12:50 BUN 17 mg/dL (6-23) 05/31/16 12:50 Creatinine 1.33 mg/dL (0.4-1.4) 05/31/16 12:50 Est GFR (Non-Af Amer) 56 mL/min (60-130) L 05/31/16 12:50 BUN/Creatinine Ratio 12.8 (9.0-21.6) 05/31/16 12:50 Random Glucose 127 mg/dL (70-110) H 05/31/16 12:50 Lactic Acid, Venous 2.7 mmol/L (0.4-2.0) H* 05/31/16 15:45 Calcium 9.5 mg/dL (7.9-10.9) 05/31/16 12:50 Calcium Adj for Albumin 9.6 mg/dL (8.4-10.2) 05/31/16 12:50 Total Bilirubin 0.5 mg/dL (0.0-1.1) 05/31/16 12:50 AST 16 U/L (0-48) 05/31/16 12:50 ALT 16 U/L (19-67) L 05/31/16 12:50 Alkaline Phosphatase 56 U/L (50-170) 05/31/16 12:50 Total Protein 6.9 gm/dL (6.2-8.2) 05/31/16 12:50 Albumin 3.5 gm/dl (3.4-5.0) 05/31/16 12:50 Amylase 57 U/L (25-115) 05/31/16 12:50 Lipase 61 U/L (73-393) L 05/31/16 12:50 Urine Color Yellow 05/31/16 15:38 Urine Appearance Slightly cloudy 05/31/16 15:38 Urine pH 8.5 pH (5.0-7.0) 05/31/16 15:38 Ur Specific [place] 1.015 SP.GR. (1.005-1.030) 05/31/16 15:38 Urine Protein 15 mg/dL (NEGATIVE) H 05/31/16 15:38 Urine Glucose (UA) Negative mg/dL (NEGATIVE) 05/31/16 15:38 Urine Ketones 5 mg/dL (NEGATIVE) 05/31/16 15:38 Urine Blood Negative /ul (NEGATIVE) 05/31/16 15:38 Urine Nitrate Negative (NEGATIVE) 05/31/16 15:38 Urine Bilirubin Negative mg/dl (NEGATIVE) 05/31/16 15:38 Prot Sulfosalicylic Acd Negative mg/dL (0) 05/31/16 15:38 Urine Urobilinogen 4 EU/dl (NORMAL) H 05/31/16 15:38 Ur Leukocyte Esterase 25 /ul (NEGATIVE) H 05/31/16 15:38 Urine RBC None seen /hpf (0-5) 05/31/16 15:38 Urine WBC 0-5 /hpf (0-5) 05/31/16 15:38 Ur Epithelial Cells None seen /hpf (0-5) 05/31/16 15:38 Amorphous Sediment Moderate - 2+ (NONE-FEW) H 05/31/16 15:38 Urine Bacteria Trace (NONE) 05/31/16 15:38 Urine Culture Comments Culture to follow 05/31/16 15:38 Assessment/Plan - Narrative Narrative: NPO. NG. Symptom control. Enemas. Follow labs. Estimated stay of 3 days. IV fluids - Assessment/Plan (1) Gastric outlet obstruction Problem: Acute (2) CHF NYHA class II (symptoms with moderately strenuous activities) Problem: Chronic Qualifiers: Congestive heart failure type: unspecified congestive heart failure type Qualified Code(s): I50.9 - Heart failure, unspecified (3) COPD (chronic obstructive pulmonary disease) Problem: Chronic Qualifiers: COPD type: chronic bronchitis Chronic bronchitis type: simple Qualified Code(s): J41.0 - Simple chronic bronchitis (4) CRF (chronic renal failure) Problem: Chronic Qualifiers: Chronic kidney disease stage: stage 3 (moderate) Qualified Code(s): N18.3 - Chronic kidney disease, stage 3 (moderate) (5) Chronic GERD Problem: Chronic (6) Chronic back pain greater than 3 months duration Problem: Chronic (7) Depression with anxiety Problem: Chronic (8) Edema extremities Problem: Chronic (9) Hypertension Problem: Chronic Qualifiers: Hypertension type: essential hypertension Qualified Code(s): I10 - Essential (primary) hypertension (10) Urinary incontinence Problem: Chronic Qualifiers: 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
[2016-06-01] MEDS: POTASSIUM CHLORIDE 20 MEQ in 0.5 NORMAL SALINE 1,000 ML IV SCH ×3 (03:33→22:53)
[2016-06-01 05:33] LABS: Hematocrit 39.2 % (42.0-52.0); Mean Cell Volume 93.1 fl (78-100); Mean Corpuscular Hemoglobin 30.9 pg (27-31); Mean Corpuscular Hgb Conc 33.2 g/dl (32-36); Mean Platelet Volume 10.7 fl (6.0-9.5); Neutrophil # 18.2 K/mm3 (1.3-6.0); Neutrophil % 90.2 % (42-75.0); Platelet Count 186 K/mm3 (150-450); Red Blood Count 4.21 M/mm3 (4.7-6.0); Red Cell Distribution Width 14.7 % (11.5-14.0); White Blood Count 20.2 K/mm3 (4.0-10.5)
[2016-06-01] MEDS: ALBUTEROL SULFATE/IPRATROPIUM 3 ML NEBU IH SCH ×4 (06:11→20:15)
[2016-06-01 06:39] LABS: Albumin * 2.7 gm/dl (3.4-5.0); Anion Gap 12.9 mmol/L (6.8-13.8); BUN/Creatinine Ratio 18.6 (9.0-21.6); Bilirubin, Total 0.6 mg/dL (0.0-1.1); Calcium * 8.3 mg/dL (7.9-10.9); Carbon Dioxide 24.4 mmol/L (24-32.6); Potassium 4.3 mmol/L (3.4-4.6); T4 Free * 1.29 ng/dL (0.76-1.46); TSH * 0.515 uIU/mL (0.358-3.74); Total Protein 5.8 gm/dL (6.2-8.2)
[2016-06-01] MEDS: BISACODYL 10 MG SUPP.RECT RC SCH (09:39)
[2016-06-01] MEDS: METHYLPREDNISOLONE SOD SUCC IV SCH (09:39)
[2016-06-01] MEDS: NORMAL SALINE IV SCH (09:39)
[2016-06-01] MEDS: ENOXAPARIN SODIUM 40 MG/0.4 ML SYRG SC SCH (09:43)
--- NOTE | 2016-06-01 10:17 | PN ---
Subjective - Date and Time Seen Date: 06/01/16 Time: 07:20 Subjective Narrative: Feels better. Abdomen not as tight. Had one very large BM yesterday. Still lots of stool in colon on xray. Still has NG tube. Objective - Review of Systems Generalized/Overall Review: Reports: Weakness, Malaise EENTM: Reports: No Symptoms Reported Respiratory: Reports: No Symptoms Reported Cardiac: Reports: No Symptoms Reported Abdominal: Reports: Abdominal Pain, Constipation Genitourinary Symptoms: Reports: No Symptoms Reported Musculoskeletal Complaints: Reports: No Symptoms Reported Neurological: Reports: No Symptoms Reported Skin: Reports: No Symptoms Reported Endocrine: Reports: No Symptoms Reported Misc: All systems neg except as marked - Vitals Vitals: Last Vital Signs Selected Entries 06/01/16 06:32 Temperature 36.6 C Temperature Oral Source Pulse Rate 96 Respiratory 18 Rate Respiratory Normal Depth Blood Pressure 122/66 O2 Sat by Pulse 96 Oximetry Oxygen Delivery Nasal Cannula Method Oxygen Flow 1 Rate - Exam Constitutional: Present: Alert, Oriented x3, Cooperative, Well developed, No distress, Obese ENT Exam: Present: normal ENT inspection Neck: Present: normal inspection Respiratory: Present: no respiratory distress, decreased breath sounds Cardiovascular/Chest: Present: regular rate, rhythm, no murmur Abdomen: Present: Normal bowel sounds, soft, no rebound tenderness, no hepatospenomegaly, no masses, obese, tender, distended Extremity: Present: normal inspection, pedal edema Skin Exam: Present: normal color, warm/dry, no cyanosis Neurologic: Present: alert, oriented x 3 Appearance: Present: appropriate appearance, neat Eye contact: Present: cooperative, good eye contact, normal speech Assessment/Plan Plan Narrative: Daily dulcolax suppository and enema. IV fluids. Possibly NG tube out tomorrow. Ambulate. [place] [id number] [place], cause uncertain (solumedrol?) - Problems/Diagnosis (1) Gastric outlet obstruction Problem: Acute (2) CHF NYHA class II (symptoms with moderately strenuous activities) Problem: Chronic Qualifiers: Congestive heart failure type: unspecified congestive heart failure type Qualified Code(s): I50.9 - Heart failure, unspecified (3) COPD (chronic obstructive pulmonary disease) Problem: Chronic Qualifiers: COPD type: chronic bronchitis Chronic bronchitis type: simple Qualified Code(s): J41.0 - Simple chronic bronchitis (4) CRF (chronic renal failure) Problem: Chronic Qualifiers: Chronic kidney disease stage: stage 3 (moderate) Qualified Code(s): N18.3 - Chronic kidney disease, stage 3 (moderate) (5) Chronic GERD Problem: Chronic (6) Chronic back pain greater than 3 months duration Problem: Chronic (7) Depression with anxiety Problem: Chronic (8) Edema extremities Problem: Chronic (9) Hypertension Problem: Chronic Qualifiers: Hypertension type: essential hypertension Qualified Code(s): I10 - Essential (primary) hypertension (10) Urinary incontinence Problem: Chronic Qualifiers: 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
[2016-06-01] MEDS: MUPIROCIN 22 APPL TUBE TP SCH (22:53)
[2016-06-01] MEDS: CHLORHEX GL/ISOPROPYL ALCOHOL 960 APPL BTL TP SCH (22:53)
[2016-06-02] MEDS: ALBUTEROL SULFATE 2.5 MG/3 ML VIAL.NEB IH PRN (04:38)
[2016-06-02] MEDS ORDERED: LEVOFLOXACIN/D5W 500 MG in Premix Bag 1 BAG IV ONE ×2 (04:57→06:00)
[2016-06-02] MEDS ORDERED: FUROSEMIDE 10 MG/ML VIAL IV ONE (04:58)
--- NOTE | 2016-06-02 05:12 | PN ---
<Raf Hastings - Last Filed: 06/02/16 04:59> Progess Note - Interim Narrative: 06/02/16 04:59 Significant change in condition, patient with large amount of out-pt via NGT, nurse report continuous coughing with thick white sputum. Audible and auscultated wheezing in BL lung field.pt was weaned off oxygen earlier and plans to have NGT discontinued later. However his spo2 89-90% on 4 L nasal cannula after nebulizer treatment. Pt breathing still labored despite initial neb treatment. He was weaned off 2L oxygen earlier with spo2 in the 95-100% on room air. He his currently on 4L nasal cannula with spo2 86-90%. Will continue nebulizer treatment, supplemented oxygen,obtain stat CXR, initiate IV antbx concern for aspiration. Plan discussed with Dr Ty and pt. pt verbalized understanding and agrees. Will continue to follow. 06/02/16 05:10 <Grabiel Stoddard - Last Filed: 06/02/16 11:05> Progess Note - Interim Narrative: 06/02/16 11:04 Record reviewed. I directly supervised all of the hospitalist plan for this patient. given the "large amount" of material from NG tube, probably prudent to continue the NG till tomorrow.
[2016-06-02] MEDS: ALBUTEROL SULFATE/IPRATROPIUM 3 ML NEBU IH SCH ×4 (06:00→18:09)
[2016-06-02 06:32] LABS: Hematocrit 39.2 % (42.0-52.0); Hemoglobin 12.7 gm/dL (13.5-18.0); Mean Cell Volume 95.1 fl (78-100); Mean Corpuscular Hemoglobin 30.8 pg (27-31); Mean Corpuscular Hgb Conc 32.4 g/dl (32-36); Mean Platelet Volume 11.6 fl (6.0-9.5); Neutrophil # 9.7 K/mm3 (1.3-6.0); Neutrophil % 81.5 % (42-75.0); Platelet Count 166 K/mm3 (150-450); Red Blood Count 4.12 M/mm3 (4.7-6.0); Red Cell Distribution Width 14.6 % (11.5-14.0); White Blood Count 11.9 K/mm3 (4.0-10.5)
[2016-06-02 06:44] LABS: Anion Gap 12.4 mmol/L (6.8-13.8); BUN/Creatinine Ratio 18.6 (9.0-21.6); Calcium * 8.5 mg/dL (7.9-10.9); Carbon Dioxide 25.7 mmol/L (24-32.6); Estimated Creat Clear 66.9; Potassium 4.1 mmol/L (3.4-4.6)
[2016-06-02] MEDS: metroNIDAZOLE/SODIUM CHLORIDE 500 MG/100 ML BAG IV SCH ×3 (07:37→23:51)
[2016-06-02] MEDS: ENOXAPARIN SODIUM 40 MG/0.4 ML SYRG SC SCH (07:37)
[2016-06-02] MEDS: NORMAL SALINE IV SCH (08:24)
[2016-06-02] MEDS: MUPIROCIN 22 APPL TUBE TP SCH ×2 (08:24→21:15)
[2016-06-02] MEDS: METHYLPREDNISOLONE SOD SUCC IV SCH (08:24)
[2016-06-02] MEDS: BISACODYL 10 MG SUPP.RECT RC SCH (08:24)
[2016-06-02] MEDS: CHLORHEX GL/ISOPROPYL ALCOHOL 960 APPL BTL TP SCH ×3 (09:13→21:20)
[2016-06-02] MEDS: POTASSIUM CHLORIDE 20 MEQ in 0.5 NORMAL SALINE 1,000 ML IV SCH ×2 (10:38→21:28)
--- NOTE | 2016-06-02 18:29 | PN ---
Subjective - Date and Time Seen Date: 06/02/16 Time: 11:20 Subjective Narrative: Feels better. Abdomen not as tight. Continues with BMs in response to treatment. Hungry and thirsty. Had a fairly severe coughing spell in the wee hours of this morning, but no vomiting. Objective - Review of Systems Generalized/Overall Review: Reports: No Symptoms Reported EENTM: Reports: No Symptoms Reported Respiratory: Reports: Cough, Shortness of Breath Cardiac: Reports: No Symptoms Reported Abdominal: Reports: No Symptoms Reported Genitourinary Symptoms: Reports: No Symptoms Reported Musculoskeletal Complaints: Reports: No Symptoms Reported Neurological: Reports: No Symptoms Reported Endocrine: Reports: No Symptoms Reported Misc: All systems neg except as marked - Vitals Vitals: Last Vital Signs Selected Entries 06/02/16 10:17 Temperature 36.9 C Temperature Temporal Artery Source Scan Pulse Rate 89 Respiratory 24 H Rate Respiratory Normal Depth Blood Pressure 140/69 Blood Pressure Supine Position O2 Sat by Pulse 93 Oximetry Oxygen Delivery Room Air Method - Abnormal Lab Findings Abnormal Lab Findings: Abnormal Lab Results 06/02/16 06/02/16 Range/Units 06:26 06:26 WBC 11.9 H D (4.0-10.5) K/mm3 RBC 4.12 L (4.7-6.0) M/mm3 Hgb 12.7 L (13.5-18.0) gm/dL Hct 39.2 L (42.0-52.0) % RDW 14.6 H (11.5-14.0) % MPV 11.6 H (6.0-9.5) fl Immature Gran % (Auto) 0.70 H (0.001-0.429) % Immature Gran # (Auto) 0.08 H (0.000-0.0310) K/mm3 Neutrophils % 81.5 H (42-75.0) % Lymphocytes % 9.0 L (20-51) % Neutrophils # 9.7 H (1.3-6.0) K/mm3 Lymphocytes # 1.1 L (1.5-3.5) k/mm3 Random Glucose 63 L D (70-110) mg/dL - Exam Constitutional: Present: Alert, Oriented x3, Cooperative, Well developed, Well nourished, No distress ENT Exam: Present: normal ENT inspection, hearing grossly normal Neck: Present: normal inspection Respiratory: Present: no respiratory distress, decreased breath sounds, wheezing Cardiovascular/Chest: Present: regular rate, rhythm, no murmur Abdomen: Present: Normal bowel sounds, soft, nontender, nondistended, no rebound tenderness, no hepatospenomegaly, no masses Extremity: Present: normal range of motion, non-tender, normal inspection, no pedal edema Skin Exam: Present: normal color, warm/dry, no cyanosis Neurologic: Present: alert, oriented x 3 Appearance: Present: appropriate appearance, neat Eye contact: Present: cooperative, good eye contact Assessment/Plan Plan Narrative: SHASHANK CONTRERAS. Follow labs. Walk more. Clear liquids. On antibiotics now for lungs. - Problems/Diagnosis (1) Gastric outlet obstruction Problem: Acute (2) CHF NYHA class II (symptoms with moderately strenuous activities) Problem: Chronic Qualifiers: Congestive heart failure type: unspecified congestive heart failure type Qualified Code(s): I50.9 - Heart failure, unspecified (3) COPD (chronic obstructive pulmonary disease) Problem: Chronic Qualifiers: COPD type: chronic bronchitis Chronic bronchitis type: simple Qualified Code(s): J41.0 - Simple chronic bronchitis (4) CRF (chronic renal failure) Problem: Chronic Qualifiers: Chronic kidney disease stage: stage 3 (moderate) Qualified Code(s): N18.3 - Chronic kidney disease, stage 3 (moderate) (5) Chronic GERD Problem: Chronic (6) Chronic back pain greater than 3 months duration Problem: Chronic (7) Depression with anxiety Problem: Chronic (8) Edema extremities Problem: Chronic (9) Hypertension Problem: Chronic Qualifiers: Hypertension type: essential hypertension Qualified Code(s): I10 - Essential (primary) hypertension (10) Urinary incontinence Problem: Chronic Qualifiers: 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
[2016-06-03 04:47] LABS: Hematocrit 37.7 % (42.0-52.0); Hemoglobin 12.4 gm/dL (13.5-18.0); Mean Cell Volume 94.7 fl (78-100); Mean Corpuscular Hemoglobin 31.2 pg (27-31); Mean Corpuscular Hgb Conc 32.9 g/dl (32-36); Mean Platelet Volume 10.8 fl (6.0-9.5); Neutrophil # 5.5 K/mm3 (1.3-6.0); Neutrophil % 75.2 % (42-75.0); Platelet Count 152 K/mm3 (150-450); Red Blood Count 3.98 M/mm3 (4.7-6.0); Red Cell Distribution Width 14.5 % (11.5-14.0); White Blood Count 7.4 K/mm3 (4.0-10.5)
[2016-06-03 05:09] LABS: Albumin * 2.4 gm/dl (3.4-5.0); Anion Gap 11.1 mmol/L (6.8-13.8); Bilirubin, Total 0.5 mg/dL (0.0-1.1); Ca. Corrected For Albumin 9.5 mg/dL (8.4-10.2); Calcium * 8.5 mg/dL (7.9-10.9); Carbon Dioxide 26.7 mmol/L (24-32.6); Potassium 4.8 mmol/L (3.4-4.6); Total Protein 5.8 gm/dL (6.2-8.2)
[2016-06-03] MEDS: LEVOFLOXACIN/D5W 500 MG in Premix Bag 1 BAG IV SCH (05:16)
[2016-06-03] MEDS ORDERED: LEVOFLOXACIN/D5W 500 MG in Premix Bag 1 BAG IV SCH (06:00)
[2016-06-03] MEDS: ALBUTEROL SULFATE/IPRATROPIUM 3 ML NEBU IH SCH ×4 (06:14→19:07)
[2016-06-03] MEDS: metroNIDAZOLE/SODIUM CHLORIDE 500 MG/100 ML BAG IV SCH ×3 (06:55→22:06)
[2016-06-03] MEDS: BISACODYL 10 MG SUPP.RECT RC SCH (09:20)
[2016-06-03] MEDS: MUPIROCIN 22 APPL TUBE TP SCH ×2 (09:20→20:58)
[2016-06-03] MEDS: ENOXAPARIN SODIUM 40 MG/0.4 ML SYRG SC SCH (09:20)
[2016-06-03] MEDS: CHLORHEX GL/ISOPROPYL ALCOHOL 960 APPL BTL TP SCH ×2 (09:21→20:59)
[2016-06-03] MEDS: NORMAL SALINE IV SCH (09:22)
[2016-06-03] MEDS: METHYLPREDNISOLONE SOD SUCC IV SCH (09:22)
[2016-06-03] MEDS: POTASSIUM CHLORIDE 20 MEQ in 0.5 NORMAL SALINE 1,000 ML IV SCH (09:24)
--- NOTE | 2016-06-03 12:25 | PN ---
Subjective - Date and Time Seen Date: 06/03/16 Time: 07:00 Subjective Narrative: Feels better. Abdomen not as tight. Continues with BMs in response to treatment. Hungry and thirsty. Walking more. Objective - Review of Systems Generalized/Overall Review: Reports: Malaise EENTM: Reports: No Symptoms Reported Respiratory: Reports: Cough, Shortness of Breath Cardiac: Reports: No Symptoms Reported Abdominal: Reports: No Symptoms Reported Genitourinary Symptoms: Reports: No Symptoms Reported Musculoskeletal Complaints: Reports: No Symptoms Reported Neurological: Reports: No Symptoms Reported Skin: Reports: No Symptoms Reported Endocrine: Reports: No Symptoms Reported Misc: All systems neg except as marked - Vitals Vitals: Last Vital Signs Selected Entries 06/03/16 06:45 Temperature 36.6 C Temperature Oral Source Pulse Rate 86 Respiratory 20 Rate Respiratory Normal Depth Blood Pressure 133/76 Blood Pressure Supine Position O2 Sat by Pulse 95 Oximetry Oxygen Delivery Room Air Method - Abnormal Lab Findings Abnormal Lab Findings: Abnormal Lab Results 06/03/16 06/03/16 Range/Units 04:43 04:43 RBC 3.98 L (4.7-6.0) M/mm3 Hgb 12.4 L (13.5-18.0) gm/dL Hct 37.7 L (42.0-52.0) % MCH 31.2 H (27-31) pg RDW 14.5 H (11.5-14.0) % MPV 10.8 H (6.0-9.5) fl Immature Gran % (Auto) 1.00 H (0.001-0.429) % Immature Gran # (Auto) 0.07 H (0.000-0.0310) K/mm3 Neutrophils % 75.2 H (42-75.0) % Lymphocytes % 13.2 L (20-51) % Monocytes % 9.1 H (0.0-9) % Lymphocytes # 1.0 L (1.5-3.5) k/mm3 Sodium 143 H (132-142) mmol/L Plasma Sodium 143 H (130-142) mmol/L Potassium 4.8 H (3.4-4.6) mmol/L Chloride 110 H (97-106) mmol/L ALT 9 L (19-67) U/L Alkaline Phosphatase 45 L (50-170) U/L Total Protein 5.8 L (6.2-8.2) gm/dL Albumin 2.4 L (3.4-5.0) gm/dl - Exam Constitutional: Present: Alert, Oriented x3, Cooperative, Well developed, Well nourished, No distress ENT Exam: Present: normal ENT inspection, hearing grossly normal Neck: Present: normal inspection Respiratory: Present: wheezing, expiration (prolonged) Cardiovascular/Chest: Present: regular rate, rhythm, no murmur Abdomen: Present: Normal bowel sounds, soft, nontender, nondistended, no rebound tenderness, no hepatospenomegaly, no masses Extremity: Present: normal inspection, no pedal edema Skin Exam: Present: normal color, warm/dry, no cyanosis Appearance: Present: appropriate appearance, neat Eye contact: Present: cooperative, good eye contact, normal speech Assessment/Plan Plan Narrative: Increase diet and walking. Follow labs. Stop enemas. Continue dulcolax. - Problems/Diagnosis (1) Gastric outlet obstruction Problem: Acute (2) CHF NYHA class II (symptoms with moderately strenuous activities) Problem: Chronic Qualifiers: Congestive heart failure type: unspecified congestive heart failure type Qualified Code(s): I50.9 - Heart failure, unspecified (3) COPD (chronic obstructive pulmonary disease) Problem: Chronic Qualifiers: COPD type: chronic bronchitis Chronic bronchitis type: simple Qualified Code(s): J41.0 - Simple chronic bronchitis (4) CRF (chronic renal failure) Problem: Chronic Qualifiers: Chronic kidney disease stage: stage 3 (moderate) Qualified Code(s): N18.3 - Chronic kidney disease, stage 3 (moderate) (5) Chronic GERD Problem: Chronic (6) Chronic back pain greater than 3 months duration Problem: Chronic (7) Depression with anxiety Problem: Chronic (8) Edema extremities Problem: Chronic (9) Hypertension Problem: Chronic Qualifiers: Hypertension type: essential hypertension Qualified Code(s): I10 - Essential (primary) hypertension (10) Urinary incontinence Problem: Chronic Qualifiers: 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
[2016-06-03] MEDS: ALBUTEROL SULFATE 2.5 MG/3 ML VIAL.NEB IH PRN ×2 (13:52→21:57)
[2016-06-03] MEDS ORDERED: ASPIRIN 81 MG TAB.CHEW PO ONE (21:54)
[2016-06-03] MEDS ORDERED: guaiFENesin 100 MG/5 ML BTL PO PRN (22:03)
[2016-06-04 03:37] LABS: Anion Gap 11.3 mmol/L (6.8-13.8); BUN/Creatinine Ratio 18.6 (9.0-21.6); Calcium * 8.1 mg/dL (7.9-10.9); Carbon Dioxide 25.9 mmol/L (24-32.6); Estimated Creat Clear 75.5; Potassium 4.2 mmol/L (3.4-4.6)
[2016-06-04] MEDS: LEVOFLOXACIN/D5W 500 MG in Premix Bag 1 BAG IV SCH (05:37)
[2016-06-04] MEDS: ALBUTEROL SULFATE/IPRATROPIUM 3 ML NEBU IH SCH ×4 (06:18→18:32)
[2016-06-04] MEDS: metroNIDAZOLE/SODIUM CHLORIDE 500 MG/100 ML BAG IV SCH ×3 (06:33→22:18)
[2016-06-04] MEDS ORDERED: FUROSEMIDE 10 MG/ML VIAL IV ONE (07:47)
[2016-06-04] MEDS: TIOTROPIUM BROMIDE 5 CAP INHALER IH SCH (08:17)
[2016-06-04] MEDS: MUPIROCIN 22 APPL TUBE TP SCH ×2 (08:18→20:18)
[2016-06-04] MEDS: ENOXAPARIN SODIUM 40 MG/0.4 ML SYRG SC SCH (08:21)
[2016-06-04] MEDS: CHLORHEX GL/ISOPROPYL ALCOHOL 960 APPL BTL TP SCH ×2 (08:22→20:17)
[2016-06-04] MEDS: predniSONE 10 MG TABLET PO SCH (08:22)
[2016-06-04] MEDS: BISACODYL 10 MG SUPP.RECT RC SCH (08:23)
[2016-06-04] MEDS: FLUoxetine HCL 20 MG CAPSULE PO SCH (08:24)
[2016-06-04] MEDS: THEOPHYLLINE ANHYDROUS 300 MG TAB.SR.12H PO SCH ×2 (08:24→20:18)
[2016-06-04] MEDS: MULTIVITAMINS 1 CAP CAPSULE PO SCH (08:24)
--- NOTE | 2016-06-04 11:19 | PN ---
Subjective - Date and Time Seen Date: 06/04/16 Time: 07:00 Subjective Narrative: Feels better. Abdomen not as tight. Continues with BMs in response to treatment. Hungry and thirsty. Walking more. Wants back on some of his usual meds. Objective - Review of Systems Generalized/Overall Review: Reports: Malaise EENTM: Reports: No Symptoms Reported Respiratory: Reports: Cough, Shortness of Breath, Wheezing Cardiac: Reports: No Symptoms Reported Abdominal: Reports: No Symptoms Reported Genitourinary Symptoms: Reports: No Symptoms Reported Musculoskeletal Complaints: Reports: No Symptoms Reported Neurological: Reports: No Symptoms Reported Skin: Reports: No Symptoms Reported Endocrine: Reports: No Symptoms Reported Misc: All systems neg except as marked - Vitals Vitals: Last Vital Signs Selected Entries 06/04/16 06/04/16 02:44 06:27 Temperature 36.3 C L Temperature Temporal Artery Source Scan Pulse Rate 70 79 Pulse Rhythm Regular Pulse Strength Normal Respiratory 20 20 Rate Respiratory Normal Depth Respiratory Normal Effort Respiratory Normal Pattern Blood Pressure 112/64 Blood Pressure Supine Position O2 Sat by Pulse 97 Oximetry Oxygen Delivery Room Air Method - Abnormal Lab Findings Abnormal Lab Findings: Abnormal Lab Results 06/04/16 Range/Units 03:30 Sodium 143 H (132-142) mmol/L Plasma Sodium 143 H (130-142) mmol/L Chloride 110 H (97-106) mmol/L - Exam Constitutional: Present: Alert, Oriented x3, Cooperative, Well developed, Well nourished, No distress ENT Exam: Present: normal ENT inspection, hearing grossly normal Neck: Present: normal inspection Respiratory: Present: no respiratory distress, wheezing Cardiovascular/Chest: Present: normal peripheral pulses, regular rate, rhythm, no edema Abdomen: Present: Normal bowel sounds, soft, nontender, nondistended, no rebound tenderness, no hepatospenomegaly, no masses Extremity: Present: non-tender, no pedal edema Skin Exam: Present: normal color, warm/dry, no cyanosis Neurologic: Present: alert, oriented x 3 Appearance: Present: appropriate appearance, appropriate insight, neat, no memory impairment Eye contact: Present: cooperative, good eye contact, normal speech Thoughts: Present: normal thought pattern Assessment/Plan Plan Narrative: Follow labs. add back prozac and theophylline. already on his usual prednisone. - Problems/Diagnosis (1) Gastric outlet obstruction Problem: Acute (2) CHF NYHA class II (symptoms with moderately strenuous activities) Problem: Chronic Qualifiers: Congestive heart failure type: unspecified congestive heart failure type Qualified Code(s): I50.9 - Heart failure, unspecified (3) COPD (chronic obstructive pulmonary disease) Problem: Chronic Qualifiers: COPD type: chronic bronchitis Chronic bronchitis type: simple Qualified Code(s): J41.0 - Simple chronic bronchitis (4) CRF (chronic renal failure) Problem: Chronic Qualifiers: Chronic kidney disease stage: stage 3 (moderate) Qualified Code(s): N18.3 - Chronic kidney disease, stage 3 (moderate) (5) Chronic GERD Problem: Chronic (6) Chronic back pain greater than 3 months duration Problem: Chronic (7) Depression with anxiety Problem: Chronic (8) Edema extremities Problem: Chronic (9) Hypertension Problem: Chronic Qualifiers: Hypertension type: essential hypertension Qualified Code(s): I10 - Essential (primary) hypertension (10) Urinary incontinence Problem: Chronic Qualifiers: 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
[2016-06-05] MEDS: LEVOFLOXACIN/D5W 500 MG in Premix Bag 1 BAG IV SCH (05:05)
[2016-06-05 06:30] LABS: Anion Gap 11.8 mmol/L (6.8-13.8); BUN/Creatinine Ratio 14.3 (9.0-21.6); Calcium * 8.5 mg/dL (7.9-10.9); Carbon Dioxide 26.9 mmol/L (24-32.6); Estimated Creat Clear 71.3; Potassium 3.7 mmol/L (3.4-4.6)
[2016-06-05] MEDS: ALBUTEROL SULFATE/IPRATROPIUM 3 ML NEBU IH SCH ×3 (06:53→15:02)
[2016-06-05] MEDS: metroNIDAZOLE/SODIUM CHLORIDE 500 MG/100 ML BAG IV SCH (07:41)
[2016-06-05] MEDS: ENOXAPARIN SODIUM 40 MG/0.4 ML SYRG SC SCH (07:48)
[2016-06-05] MEDS: MUPIROCIN 22 APPL TUBE TP SCH (09:03)
[2016-06-05] MEDS: MULTIVITAMINS 1 CAP CAPSULE PO SCH (09:04)
[2016-06-05] MEDS: predniSONE 10 MG TABLET PO SCH (09:04)
[2016-06-05] MEDS: CHLORHEX GL/ISOPROPYL ALCOHOL 960 APPL BTL TP SCH (09:05)
[2016-06-05] MEDS: FLUoxetine HCL 20 MG CAPSULE PO SCH (09:05)
[2016-06-05] MEDS: TIOTROPIUM BROMIDE 5 CAP INHALER IH SCH (09:05)
[2016-06-05] MEDS: BISACODYL 10 MG SUPP.RECT RC SCH (09:05)
[2016-06-05] MEDS: THEOPHYLLINE ANHYDROUS 300 MG TAB.SR.12H PO SCH (09:05)
[2016-06-05 11:17] VITALS: BP 115/67
--- NOTE | 2016-06-05 14:51 | DS ---
(1) Gastric outlet obstruction Problem: Resolved (2) CHF NYHA class II (symptoms with moderately strenuous activities) Problem: Chronic Qualifiers: Congestive heart failure type: unspecified congestive heart failure type Qualified Code(s): I50.9 - Heart failure, unspecified (3) COPD (chronic obstructive pulmonary disease) Problem: Chronic Qualifiers: COPD type: chronic bronchitis Chronic bronchitis type: simple Qualified Code(s): J41.0 - Simple chronic bronchitis (4) CRF (chronic renal failure) Problem: Chronic Qualifiers: Chronic kidney disease stage: stage 3 (moderate) Qualified Code(s): N18.3 - Chronic kidney disease, stage 3 (moderate) (5) Chronic GERD Problem: Chronic (6) Chronic back pain greater than 3 months duration Problem: Chronic (7) Depression with anxiety Problem: Chronic (8) Edema extremities Problem: Chronic (9) Hypertension Problem: Chronic Qualifiers: Hypertension type: essential hypertension Qualified Code(s): I10 - Essential (primary) hypertension (10) Urinary incontinence Problem: Chronic Qualifiers: Urinary 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 Constipation also present, and treated successfully from below. Acute bronchitis treated with antibiotics. Patient is much better now, walking in the [place] and eating well. Procedures Performed: none Discharge Disposition: [facility] Disposition: [facility] Condition: Good Discharge Activity: Activity as tolerated Discharge Diet: Low salt [facility] Therapy: Physicial Therapy, Occupation Therapy Referrals: Grabiel Stoddard MD [Primary Care Provider] - Problem Oriented Discharge Instructions to Patient/Family: Small Bowel Obstruction, [id number], Chronic Obstructive Pulmonary Disease Exacerbation, [id number] Additional Patient Instructions (free text): CBC BMP in 2 weeks. Prescriptions (Any new or edited meds): Albuterol Sulfate [Albuterol Sulfate 2.5 MG/0.5ML] 2.5 mg IH Q4H PRN #1 vial.neb PRN Reason: wheezing Bisacodyl [Dulcolax] 10 mg PO DAILY #1 tab Ciprofloxacin HCl [Cipro] 500 mg PO BID #20 tab metroNIDAZOLE [Flagyl] 500 mg PO QID #40 tab Complete Home Medications List: Complete Home Medication List: Multivitamins [Multivitamin Pawan] 1 cap PO DAILY 07/09/13 Theophylline Anhydrous [Chato-Dur] 300 mg PO BID tab.sr.12h 10/04/15 Albuterol Sulfate/Ipratropium [Duoneb 2.5-0.5MG/3ML Soln] 3 ml IH QID 01/21/16 FLUoxetine HCL [Prozac] 20 mg PO DAILY #30 cap 03/14/16 Polyethylene Glycol 3350 [Gavilax] 17 gm PO DAILY 05/25/16 Albuterol Sulfate [Albuterol Sulfate 2.5 MG/0.5ML] 2.5 mg IH Q4H PRN #1 vial.neb 06/05/16 Bisacodyl [Dulcolax] 10 mg PO DAILY #1 tab 06/05/16 Ciprofloxacin HCl [Cipro] 500 mg PO BID #20 tab 06/05/16 metroNIDAZOLE [Flagyl] 500 mg PO QID #40 tab 06/05/16 predniSONE [Prednisone] 10 mg PO DAILY tablet 06/05/16
== END 2016-06-05 15:40 | DRG 381 ==
LOC: ER 12:26 → UNDOADMIN 16:48 → MS 16:48 → INTOOBSV 16:48 → OBSVTOIN 06-01 07:26
PROVIDERS: ADMIT Allergy & Immunology; ATTEND Allergy & Immunology
DX: K31.1 Adult hypertrophic pyloric stenosis (principal); J44.0 Chronic obstructive pulmonary disease with (acute) lower respiratory infection; J20.9 Acute bronchitis, unspecified; I50.9 Heart failure, unspecified; F41.8 Other specified anxiety disorders; I12.9 Hypertensive chronic kidney disease with stage 1 through stage 4 chronic kidney disease, or unspecified chronic kidney disease; N18.3 Chronic kidney disease, stage 3 (moderate); R53.1 Weakness; N39.46 Mixed incontinence; K59.01 Slow transit constipation; Z79.52 Long term (current) use of systemic steroids
CPT/HCPCS: 36415; 71010; 74020; 74177; 80048; 80053; 81001; 82150; 83605; 83690; 84439; 84443; 84484; 85025; 87040; 87070; 87077; 87081; 87086; 87186; 93005; 94640; 97110; 97116; 97161; 97530; 97542; 99284; G0378

== ENCOUNTER 2016-06-07 16:28 | Observation (INO) | payer MEDICARE ==
--- NOTE | 2016-06-07 19:11 | ERNOTE ---
Abdominal HPI - General Chief Complaint: Abdominal Pain Time Seen by Provider: 06/07/16 19:01 Source: patient Exam Limitations: no limitations - Immun/Allergies/Home Medications Immunizatons: IMMUNIZATION HX Immunizations Up to Date Yes History of Influenza Vaccine Yes Hx Pneumococcal Vaccination Yes Allergies/Adverse Reactions: Allergies codeine [Codeine] Allergy (Verified 05/31/16 13:50) Nausea ketorolac tromethamine [From Toradol] Adverse Reaction (Verified 05/31/16 13:50) Home Medications: HOME MEDICATIONS Multivitamins [Multivitamin Pawan] 1 cap PO DAILY 07/09/13 [Last Taken 09:00] Theophylline Anhydrous [Chato-Dur] 300 mg PO BID tab.sr.12h 10/04/15 [Last Taken Unknown] Albuterol Sulfate/Ipratropium [Duoneb 2.5-0.5MG/3ML Soln] 3 ml IH QID 01/21/16 [ Last Taken Unknown] FLUoxetine HCL [Prozac] 20 mg PO DAILY #30 cap 03/14/16 [Last Taken Unknown] Polyethylene Glycol 3350 [Gavilax] 17 gm PO DAILY 05/25/16 [Last Taken Unknown] Albuterol Sulfate [Albuterol Sulfate 2.5 MG/0.5ML] 2.5 mg IH Q4H PRN #1 vial.neb 06/05/16 [Last Taken Unknown] Bisacodyl [Dulcolax] 10 mg PO DAILY #1 tab 06/05/16 [Last Taken Unknown] Ciprofloxacin HCl [Cipro] 500 mg PO BID #20 tab 06/05/16 [Last Taken Unknown] metroNIDAZOLE [Flagyl] 500 mg PO QID #40 tab 06/05/16 [Last Taken Unknown] predniSONE [Prednisone] 10 mg PO DAILY tablet 06/05/16 [Last Taken Unknown] - History of Present Illness Narrative: Patient was admitted 05/31-06/05 for a bowel obstruction, constipation, and bronchitis, the latter was treated with cipro as cultures grew pseudomonas. He [facility] back to the [facility] two days ago. Today at 11:00 he started to vomit, had multiple episodes the last one prior to transfer around 16:00. there was a concern that their could have been blood in the vomit. Date (Duration): 06/07/16 Time (Timing): 11:00 Timing: intermittent Review of Systems - Review of Systems Constitutional: Present: recent illness. Absent: fever, chills ENT: Absent: nose congestion, sore throat Respiratory: Present: shortness of breath - chronic, at baseline. Absent: cough Cardiology: Absent: chest pain Gastrointestinal/Abdominal: Present: See HPI, nausea, vomiting. Absent: diarrhea, abdominal pain Skin: Absent: rash Neurological: Absent: headache - Patient's Past Medical History Patient History - Medical: Anxiety, Depression, GERD, Kidney stone, Osteoarthritis, Renal Failure, UTI'S, Other Patient History - Cardiac/Respiratory: CHF, COPD Patient History - Cancer: No Hx of Cancer Patient History - Surgical Procedures: Cholecystectomy, Colonoscopy, EGD, T & A Patient History - Other: None - Family History Mother Family History - Medical: Family History - Cardiac/Respiratory: Coronary Heart Disease, Hypertension Father Family History - Medical: , Depression, Other Family History - Cardiac/Respiratory: History Unknown Sister Family History - Medical: History Unknown Family History - Cardiac/Respiratory: Asthma, Hypertension - Social History Living Situations: snf Abuse History: No History of abuse Psych History: Hx of Anxiety, Hx of Depression, Current tx/ever been on anti- depressants or anti-anxiety meds Alcohol Use: none Drug Use: none - Immunizations Immunizations Up to Date: Yes Hx Pneumococcal Vaccination: Yes History of Influenza Vaccine: Yes Physical Exam - Physical Exam General Appearance: Present: wd/wn, alert, no apparent distress Ears, Nose, Throat: Present: normal ENT inspection, normal pharynx Respiratory: Present: no respiratory distress, normal breath sounds, no accessory muscle use, lungs clear Cardiovascular/Chest: Present: regular rate, rhythm, no murmur Gastrointestinal/Abdominal: Present: soft, tenderness - minimal, abnormal bowel sounds - decreased, tympanic, distended Extremity Exam: Present: no edema Neurological Exam: Present: alert, oriented, normal mood/affect Skin Exam: Present: normal color, warm/dry ED Progress - Results and Orders Patient's Lab Results:: I have reviewed the patient's lab results. - Vital Signs Patient's Vital Signs:: I have reviewed the patient's vital signs. Vital Signs: Vital Signs 06/07/16 06/07/16 06/07/16 16:31 16:46 17:01 Temperature 36.5 C Pulse Rate 108 H 80 97 Respiratory 22 H 18 19 Rate Blood Pressure 158/93 141/68 145/69 O2 Sat by Pulse 97 98 98 Oximetry - X-Ray X-Ray #1 X-Ray: abdomen - large amount of stool, dilated gastric bubble and bowel loops Interpretation: Interp. by me - Progress/Reassessment Chief Complaint: Abdominal Pain Progress Note-Subjective: 06/07/16 20:17 discussed test results with patient, agrees to get admitted again 06/07/16 20:17 discussed with Ivet Mckeon (NRP) okay to admit for observation,consult surgery, consider possible scope for gastric outlet obstruction 06/07/16 20:[address] Hankins (surgery), consulted Departure - Departure Clinical Impression: Gastric outlet obstruction Disposition: [facility] Condition: Good
[2016-06-07 19:27] LABS: Hematocrit 42.8 % (42.0-52.0); Hemoglobin 14.3 gm/dL (13.5-18.0); Mean Cell Volume 92.6 fl (78-100); Mean Corpuscular Hgb Conc 33.4 g/dl (32-36); Mean Platelet Volume 10.6 fl (6.0-9.5); Neutrophil # 10.1 K/mm3 (1.3-6.0); Platelet Count 216 K/mm3 (150-450); Red Blood Count 4.62 M/mm3 (4.7-6.0); Red Cell Distribution Width 14.2 % (11.5-14.0); White Blood Count 12.4 K/mm3 (4.0-10.5)
[2016-06-07 19:43] LABS: Albumin * 2.9 gm/dl (3.4-5.0); Anion Gap 9.9 mmol/L (6.8-13.8); BUN/Creatinine Ratio 12.8 (9.0-21.6); Bilirubin, Total 0.4 mg/dL (0.0-1.1); Ca. Corrected For Albumin 9.1 mg/dL (8.4-10.2); Calcium * 8.5 mg/dL (7.9-10.9); Carbon Dioxide 28.6 mmol/L (24-32.6); Potassium 4.5 mmol/L (3.4-4.6); Total Protein 6.2 gm/dL (6.2-8.2)
--- OUTSIDE RECORDS SUMMARY | 2016-06-07 19:53 | XMS REPORT | Continuity of Care Document ---
:1940 Author Organization [employer] [place] [address] Care Team Providers Name Role Phone Lela Hensley Primary Care Provider [phone] Source Comments This disclosure is being made pursuant to the [employer] program and maynot contain all information available regarding this patient.[employer] Active Allergies and Adverse Reactions Allergen Noted [...]
--- OUTSIDE RECORDS SUMMARY | 2016-06-07 19:53 | XMS REPORT | Continuity of Care Document ---
:1940 Author Organization [facility] ([facility]) Address [place] [address] Phone [phone] Care Team Providers Name Role Phone Lela Hensley Primary Care Provider [phone] Source Comments This disclosure is being made pursuant to the Care Everywhere program, applicable federal and state laws, and may not contain all informaitonavailable regarding this patient.[facility] ([facility]) Active Allergies and Adverse Reactions Allergen Noted [...]
--- OUTSIDE RECORDS SUMMARY | 2016-06-07 20:41 | XMS REPORT | Continuity of Care Document ---
:1940 Author Organization [employer] [place] [address] Care Team Providers Name Role Phone Lela Hensley Primary Care Provider [phone] Source Comments This disclosure is being made pursuant to the [employer] program and maynot contain all information available regarding this patient.[employer] Active Allergies and Adverse Reactions Allergen Noted [...]
--- OUTSIDE RECORDS SUMMARY | 2016-06-07 20:41 | XMS REPORT | Continuity of Care Document ---
:1940 Author Organization [facility] ([facility]) Address [place] [address] Phone [phone] Care Team Providers Name Role Phone Lela Hensley Primary Care Provider [phone] Source Comments This disclosure is being made pursuant to the Care Everywhere program, applicable federal and state laws, and may not contain all informaitonavailable regarding this patient.[facility] ([facility]) Active Allergies and Adverse Reactions Allergen Noted [...]
[2016-06-07] MEDS ORDERED: NORMAL SALINE 1,000 ML IV ONE (20:48)
[2016-06-07] MEDS ORDERED: PANTOPRAZOLE SODIUM 40 MG in NORMAL SALINE 100 ML IV SCH (21:00)
--- NOTE | 2016-06-07 21:08 | HP ---
<Ivet Mckeon - Last Filed: 06/07/16 22:35> Chief Complaint - Chief Complaint Date of Service: 06/07/16 Time of Service: 21:08 Chief Complaint: abd pain History of Present Illness: Pt is a 76 year old male pt of Dr. Bruce who was just recently hospitalized 05/31-06/05 for a bowel obstruction, constipation, and bronchitis, the latter was treated with cipro as cultures grew pseudomonas. PMH includes: Anxiety, Depression, GERD, Osteoarthritis, Renal Failure, UTI'S, CHF, COPD, and SBO. Today at 11:00 he started to vomit, had multiple episodes the last one prior to transfer around 16:00. there was a concern that their could have been blood in the vomit. He has RLQ pain which he rates a 8/10 and states it comes in goes. Nothing makes the pain better or worse. Pt states his last BM was Sunday, he does endorse passing "a little gas." Abdominal xray with evidence of distended loop of bowel. He will be admitted for surgical consult with further work up of bowel obstruction as well as possible GIB. - Patient's Past Medical History Patient History - Medical: Anxiety, Depression, GERD, Osteoarthritis, Renal Failure, UTI'S, Other Patient History - Cardiac/Respiratory: CHF, COPD Patient History - Cancer: No Hx of Cancer Patient History - Surgical Procedures: Cholecystectomy, Colonoscopy, EGD, T & A , Other - hiatal hernia Patient History - Other: None - Family History Mother Family History - Medical: Family History - Cardiac/Respiratory: Coronary Heart Disease, Hypertension Father Family History - Medical: , History Unknown Family History - Cardiac/Respiratory: History Unknown Sister Family History - Medical: History Unknown Family History - Cardiac/Respiratory: Asthma, Hypertension - Social History Living Situations: long-term Abuse History: No History of abuse Psych History: Hx of Anxiety, Hx of Depression, Current tx/ever been on anti- depressants or anti-anxiety meds Smoking Status: Former smoker Smoking Stop Date: 06/06/93 Alcohol Use: none Drug Use: none - Immunizations Immunizations Up to Date: Yes Hx Pneumococcal Vaccination: Yes History of Influenza Vaccine: Yes Review Of Systems (GEN) - Review of Systems Generalized/Overall Review: Present: No Symptoms Reported EENTM: Present: No Symptoms Reported Respiratory: Present: Cough, Wheezing Cardiac: Present: Edema Abdominal: Present: Nausea, Vomiting, Abdominal Pain, Constipation Genitourinary: Present: No Symptoms Reported Musculoskeletal: Present: No Symptoms Reported Neurological: Present: No Symptoms Reported Skin: Present: No Symptoms Reported Immunizations: IMMUNIZATION HX Immunizations Up to Date Yes History of Influenza Vaccine Yes Hx Pneumococcal Vaccination Yes Allergies/Adverse Reactions: Allergies Allergy/AdvReac Type Severity Reaction Status Date / Time codeine [Codeine] Allergy Nausea Verified 06/07/16 23:35 ketorolac tromethamine AdvReac Verified 06/07/16 23:35 [From Toradol] Home Medications: HOME MEDICATIONS Multivitamins [Multivitamin Pawan] 1 cap PO DAILY 07/09/13 [Last Taken 09:00] Theophylline Anhydrous [Chato-Dur] 300 mg PO BID tab.sr.12h 10/04/15 [Last Taken Unknown] Albuterol Sulfate/Ipratropium [Duoneb 2.5-0.5MG/3ML Soln] 3 ml IH QID 01/21/16 [ Last Taken Unknown] FLUoxetine HCL [Prozac] 20 mg PO DAILY #30 cap 03/14/16 [Last Taken Unknown] Polyethylene Glycol 3350 [Gavilax] 17 gm PO DAILY 05/25/16 [Last Taken Unknown] Albuterol Sulfate [Albuterol Sulfate 2.5 MG/0.5ML] 2.5 mg IH Q4H PRN #1 vial.neb 06/05/16 [Last Taken Unknown] Bisacodyl [Dulcolax] 10 mg PO DAILY #1 tab 06/05/16 [Last Taken Unknown] Ciprofloxacin HCl [Cipro] 500 mg PO BID #20 tab 06/05/16 [Last Taken Unknown] metroNIDAZOLE [Flagyl] 500 mg PO QID #40 tab 06/05/16 [Last Taken Unknown] predniSONE [Prednisone] 10 mg PO DAILY tablet 06/05/16 [Last Taken Unknown] Exam - Exam Vital Signs: Vital Signs - Last Taken Temp 36.5 C 06/07/16 16:31 Pulse 95 06/07/16 20:25 Resp 18 06/07/16 20:25 BP 121/63 06/07/16 20:25 Pulse Ox 95 RA 06/07/16 20:25 Constitutional: Present: Alert, Oriented x3, Cooperative, No distress ENT Exam: Present: normal ENT inspection Eye Exam: bilateral eye: normal inspection, PERRL Back Exam: Present: normal inspection Respiratory: Present: no respiratory distress, no accessory muscle use, decreased breath sounds Cardiovascular/Chest: Present: normal peripheral pulses, regular rate, rhythm, no chest tenderness, no edema, no murmur Peripheral Pulses: dorsalis-pedis (R): 2+, dorsalis-pedis (L): 2+, radial (R): 2 +, radial (L): 2+ Abdomen: Present: no rebound tenderness, no hepatospenomegaly, tender - RLQ, firm, distended, hypoactive Extremity: Present: normal range of motion, non-tender, normal inspection, no pedal edema, no calf tenderness, normal capillary refill Skin Exam: Present: normal color, warm/dry, no cyanosis Neurologic: Present: no motor/sensory deficits, alert, normal mood/affect, oriented x 3 Appearance: Present: appropriate appearance, appropriate insight, neat, no memory impairment Eye contact: Present: cooperative, good eye contact, normal speech Diagnostic Studies: Laboratory Results Laboratory Tests 06/07/16 06/07/16 19:20 19:20 WBC 12.4 H Hgb 14.3 Hct 42.8 Plt Count 216 Neutrophils % 82.0 H Sodium 142 Potassium 4.5 D BUN 14 Creatinine 1.09 AST 33 ALT 37 Alkaline Phosphatase 47 L Amylase 35 Lipase 51 L Assessment/Plan - Assessment/Plan (1) Gastric outlet obstruction Assessment: Surgery consult placed by ER MD. Will place NGT to LIS, maintain NPO status, and provided IV hydration overnight (will use cautiously given CHF hx). Abdominal xray with evidence of distended loop of bowel. If does not improve may need CT for further work up. -NPO -NGT LIS -Surgery C/S -Zofran PRN for nausea -Morphine 2mg PRN Q4H for pain Problem: Acute (2) GIB (gastrointestinal bleeding) Assessment: Place pt on 40mg Protonix IV daily, guaiac all stools, monitor CBC. -CBC in am -IV Protonix -Guaiac all stool Problem: Suspected (3) COPD (chronic obstructive pulmonary disease) case management patient Assessment: Stable Problem: Chronic (4) CRF (chronic renal failure) Assessment: Stable Laboratory Tests 06/07/16 19:20 BUN 14 Creatinine 1.09 Est GFR (Non-Af Amer) 70 BUN/Creatinine Ratio 12.8 Problem: Chronic QualifierTitle: Chronic kidney disease stage: stage 3 (moderate) Qualified Code(s): N18.3 - Chronic kidney disease, stage 3 (moderate) (5) Depression Assessment: stable Problem: Chronic QualifierTitle: Depression Type: major depressive disorder Major depression recurrence: recurrent Active/Remission status: currently active Major depression episode severity: moderate Qualified Code(s): F33.1 - Major depressive disorder, recurrent, moderate (6) Hypertension Assessment: Stable -VS @4Hr Problem: Chronic QualifierTitle: Hypertension type: essential hypertension Qualified Code( s): I10 - Essential (primary) hypertension (7) CHF (congestive heart failure) Assessment: Stable Problem: Chronic QualifierTitle: Congestive heart failure type: unspecified congestive heart failure type Congestive heart failure chronicity: acute on chronic Qualified Code(s): I50.9 - Heart failure, unspecified <Grabiel Stoddard - Last Filed: 06/08/16 12:31> Immunizations: IMMUNIZATION HX Immunizations Up to Date Yes History of Influenza Vaccine Yes Hx Pneumococcal Vaccination Yes Exam - Exam Vital Signs: Vital Signs - Last Taken Temp 36.5 C 06/08/16 07:46 Pulse 71 06/08/16 10:57 Resp 16 06/08/16 10:57 BP 137/80 06/08/16 07:46 Pulse Ox 96 06/08/16 07:46 Diagnostic Studies: Abnormal Lab Results 06/07/16 06/08/16 06/08/16 Range/Units 22:01 05:38 05:38 RBC 4.26 L (4.7-6.0) M/mm3 Hgb 13.3 L (13.5-18.0) gm/dL Hct 40.0 L (42.0-52.0) % MCH 31.2 H (27-31) pg RDW 14.4 H (11.5-14.0) % MPV 10.3 H (6.0-9.5) fl Immature Gran % (Auto) 1.10 H (0.001-0.429) % Immature Gran # (Auto) 0.11 H (0.000-0.0310) K/mm3 Neutrophils % 76.8 H (42-75.0) % Lymphocytes % 12.5 L (20-51) % Neutrophils # 7.9 H (1.3-6.0) K/mm3 Lymphocytes # 1.3 L (1.5-3.5) k/mm3 Chloride 109 H (97-106) mmol/L Alkaline Phosphatase 44 L (50-170) U/L B-Natriuretic Peptide 1163 H (5-650) pg/mL Total Protein 5.7 L (6.2-8.2) gm/dL Albumin 2.6 L (3.4-5.0) gm/dl Gastric Occult Blood Positive H Laboratory Results WBC 10.2 K/mm3 (4.0-10.5) 06/08/16 05:38 RBC 4.26 M/mm3 (4.7-6.0) L 06/08/16 05:38 Hgb 13.3 gm/dL (13.5-18.0) L 06/08/16 05:38 Hct 40.0 % (42.0-52.0) L 06/08/16 05:38 MCV 93.9 fl (78-100) 06/08/16 05:38 MCH 31.2 pg (27-31) H 06/08/16 05:38 MCHC 33.3 g/dl (32-36) 06/08/16 05:38 RDW 14.4 % (11.5-14.0) H 06/08/16 05:38 Plt Count 213 K/mm3 (150-450) 06/08/16 05:38 MPV 10.3 fl (6.0-9.5) H 06/08/16 05:38 Immature Gran % (Auto) 1.10 % (0.001-0.429) H 06/08/16 05:38 Immature Gran # (Auto) 0.11 K/mm3 (0.000-0.0310) H 06/08/16 05:38 Neutrophils % 76.8 % (42-75.0) H 06/08/16 05:38 Lymphocytes % 12.5 % (20-51) L 06/08/16 05:38 Monocytes % 7.0 % (0.0-9) 06/08/16 05:38 Eosinophils % 1.9 % (0.0-3.0) 06/08/16 05:38 Basophils % 0.7 % (0.0-1.0) 06/08/16 05:38 Nucleated RBC % 0.0 k/mm3 (0-1) 06/08/16 05:38 Neutrophils # 7.9 K/mm3 (1.3-6.0) H 06/08/16 05:38 Lymphocytes # 1.3 k/mm3 (1.5-3.5) L 06/08/16 05:38 Monocytes # 0.7 k/mm3 (0.0-1.0) 06/08/16 05:38 Eosinophils # 0.2 k/mm3 (0.0-0.7) 06/08/16 05:38 Absolute Basophils 0.1 k/mm3 (0.0-0.1) 06/08/16 05:38 Sodium 142 mmol/L (132-142) 06/08/16 05:38 Plasma Sodium 142 mmol/L (130-142) 06/08/16 05:38 Potassium 4.5 mmol/L (3.4-4.6) 06/08/16 05:38 Chloride 109 mmol/L (97-106) H 06/08/16 05:38 Carbon Dioxide 26.9 mmol/L (24-32.6) 06/08/16 05:38 Anion Gap 10.6 mmol/L (6.8-13.8) 06/08/16 05:38 BUN 12 mg/dL (6-23) 06/08/16 05:38 Creatinine 0.99 mg/dL (0.4-1.4) 06/08/16 05:38 Est GFR (Non-Af Amer) 78 mL/min (60-130) 06/08/16 05:38 BUN/Creatinine Ratio 12.1 (9.0-21.6) 06/08/16 05:38 Random Glucose 85 mg/dL (70-110) 06/08/16 05:38 Calcium 8.1 mg/dL (7.9-10.9) 06/08/16 05:38 Calcium Adj for Albumin 8.9 mg/dL (8.4-10.2) 06/08/16 05:38 Total Bilirubin 0.5 mg/dL (0.0-1.1) 06/08/16 05:38 AST 25 U/L (0-48) 06/08/16 05:38 ALT 30 U/L (19-67) 06/08/16 05:38 Alkaline Phosphatase 44 U/L (50-170) L 06/08/16 05:38 B-Natriuretic Peptide 1163 pg/mL (5-650) H 06/08/16 05:38 Total Protein 5.7 gm/dL (6.2-8.2) L 06/08/16 05:38 Albumin 2.6 gm/dl (3.4-5.0) L 06/08/16 05:38 Amylase 35 U/L (25-115) 06/07/16 19:20 Lipase 51 U/L (73-393) L 06/07/16 19:20 Gastric Occult Blood Positive H 06/07/16 22:01 Assessment/Plan - Narrative Narrative: In spite of extensive bowel cleansing during last admission, his plain xray on this admission discloses stool from the mid transverse to the distal colon. He is no longer nauseated or vomiting. We will work on additional bowel cleansing now, increase his laxatives, and follow up with labs and an abdominal xray tomorrow morning. If all is well, will discharge back to the long-term. Am giving clear liquids at the present time, and so far appears to be having no problem. I have reviewed the record and examined the patient. I directly supervised all of our nurse practitioner's care for this patient.
[2016-06-07] MEDS ORDERED: ONDANSETRON HCL/PF 2 MG/ML VIAL IV PRN (22:12)
[2016-06-07] MEDS ORDERED: BISACODYL 10 MG SUPP.RECT RC SCH (22:30)
[2016-06-08 05:42] LABS: Hemoglobin 13.3 gm/dL (13.5-18.0); Mean Cell Volume 93.9 fl (78-100); Mean Corpuscular Hemoglobin 31.2 pg (27-31); Mean Corpuscular Hgb Conc 33.3 g/dl (32-36); Mean Platelet Volume 10.3 fl (6.0-9.5); Neutrophil # 7.9 K/mm3 (1.3-6.0); Neutrophil % 76.8 % (42-75.0); Platelet Count 213 K/mm3 (150-450); Red Blood Count 4.26 M/mm3 (4.7-6.0); Red Cell Distribution Width 14.4 % (11.5-14.0); White Blood Count 10.2 K/mm3 (4.0-10.5)
[2016-06-08 06:25] LABS: Albumin * 2.6 gm/dl (3.4-5.0); Anion Gap 10.6 mmol/L (6.8-13.8); BUN/Creatinine Ratio 12.1 (9.0-21.6); Bilirubin, Total 0.5 mg/dL (0.0-1.1); Ca. Corrected For Albumin 8.9 mg/dL (8.4-10.2); Calcium * 8.1 mg/dL (7.9-10.9); Carbon Dioxide 26.9 mmol/L (24-32.6); Potassium 4.5 mmol/L (3.4-4.6); Total Protein 5.7 gm/dL (6.2-8.2)
[2016-06-08] MEDS ORDERED: ACETAMINOPHEN 325 MG TABLET PO PRN (08:44)
[2016-06-08] MEDS ORDERED: ALBUTEROL SULFATE 2.5 MG/3 ML VIAL.NEB IH PRN (08:58)
[2016-06-08] MEDS ORDERED: POLYETHYLENE GLYCOL 3350 119 GM BTL PO SCH (09:00)
[2016-06-08] MEDS: ALBUTEROL SULFATE/IPRATROPIUM 3 ML NEBU IH SCH ×3 (10:47→18:10)
[2016-06-08] MEDS: metroNIDAZOLE 500 MG TABLET PO SCH ×3 (11:33→21:24)
[2016-06-08] MEDS: BISACODYL 5 MG TABLET.DR PO SCH ×3 (11:33→21:23)
[2016-06-08] MEDS: predniSONE 10 MG TABLET PO SCH (11:34)
[2016-06-08] MEDS: THEOPHYLLINE ANHYDROUS 300 MG TAB.SR.12H PO SCH ×2 (11:34→21:25)
[2016-06-08] MEDS: MULTIVITAMINS 1 CAP CAPSULE PO SCH (11:34)
[2016-06-08] MEDS: CIPROFLOXACIN HCL 500 MG TABLET PO SCH ×2 (11:34→23:05)
[2016-06-08] MEDS: FLUoxetine HCL 20 MG CAPSULE PO SCH (11:34)
--- NOTE | 2016-06-08 11:59 | CONS ---
[facility] - General Date of Service: 06/08/16 Narrative: Was contacted last night by ER physician, Dr. Wiseman, to consult today regarding a possible gastric outlet obstruction. He was recently admitted for a potential bowel obstruction and was released to the [facility] after conservative resumption of bowel activity. Obstipation was of concern and he was continued on miralax daily at the [place] but no suppositories. He was admitted, was made NPO, and an NG tube was placed. Today he is pain free. The NG has been discontinued. He is eating clear liquids and is tolerating these well. He is passing flatus. Source: patient, RN/MD, old records Exam Limitations: no limitations - History of Present Illness Allergies/Adverse Reactions: Allergies codeine [Codeine] Allergy (Verified 06/07/16 23:35) Nausea ketorolac tromethamine [From Toradol] Adverse Reaction (Verified 06/07/16 23:35) Home Medications: Home Medications Medication Instructions Recorded Last Taken Multivitamins [Multivitamin Pawan] 1 cap PO DAILY 07/09/13 04/29/15 09:00 Albuterol Sulfate/Ipratropium 3 ml IH QID 01/21/16 Unknown [Duoneb 2.5-0.5MG/3ML Soln] Polyethylene Glycol 3350 [Gavilax] 17 gm PO DAILY 05/25/16 Unknown - Patient's Past Medical History Patient History - Medical: Anxiety, Depression, GERD, Osteoarthritis, Renal Failure, UTI'S, Other Patient History - Cardiac/Respiratory: CHF, COPD Patient History - Cancer: No Hx of Cancer Patient History - Surgical Procedures: Cholecystectomy, Colonoscopy, EGD, T & A , Other Patient History - Other: None - Family History Mother Family History - Medical: Family History - Cardiac/Respiratory: Coronary Heart Disease, Hypertension Father Family History - Medical: , History Unknown Family History - Cardiac/Respiratory: History Unknown Sister Family History - Medical: History Unknown Family History - Cardiac/Respiratory: Asthma, Hypertension - Social History Living Situations: [facility] Abuse History: No History of abuse Psych History: Hx of Anxiety, Hx of Depression, Current tx/ever been on anti- depressants or anti-anxiety meds Smoking Status: Former smoker Have you smoked in the past 12 months: No Do you dip or chew tobacco: No Smoking Stop Date: 06/06/93 Patient requests Smoking Cessation Consult: No Initiate information on Smoking Cessation: No Alcohol Use: none Drug Use: none - Immunizations Immunizations Up to Date: Yes Hx Pneumococcal Vaccination: Yes History of Influenza Vaccine: Yes Procedures ARTERIAL BLD GAS MEASURE (06/10/14) ESOPHAGOGASTRODUODENOSCOPY [EGD] W/CLOSED BIOPSY (08/21/12) EXCISION OF RECTUM, ENDO, DIAGN (09/30/15) EXCISION OF SIGMOID COLON, ENDO, DIAGN (09/30/15) ULTRASONOGRAPHY OF BLADDER (12/18/15) Medications - Medications Current Medications: Current Medications Albuterol/Ipratropium (Duoneb 2.5-0.5mg/3ml Soln) 3 ml IH QIDRT [facility] Stop: 07/08/16 11:01 Last Admin: 06/08/16 10:47 Dose: 3 ml Bisacodyl (Dulcolax) 10 mg PO BID [facility] Stop: 07/08/16 09:01 Last Admin: 06/08/16 11:33 Dose: Not Given Ciprofloxacin (Cipro) 500 mg PO BID@1100,2300 [facility] PRN Reason: Protocol Stop: 07/08/16 11:01 Last Admin: 06/08/16 11:34 Dose: Not Given Fluoxetine HCl (Prozac) 20 mg PO DAILY [facility] Stop: 07/08/16 09:01 Last Admin: 06/08/16 11:34 Dose: Not Given Metronidazole (Flagyl) 500 mg PO Q6H [facility] PRN Reason: Protocol Stop: 07/08/16 09:01 Last Admin: 06/08/16 11:33 Dose: Not Given Ondansetron HCl (Zofran) 4 mg IV Q6H PRN PRN Reason: Nausea And Vomiting Stop: 07/07/16 22:13 Last Admin: 06/07/16 22:30 Dose: 4 mg Prednisone (Prednisone) 10 mg PO DAILY [facility] Stop: 07/08/16 09:01 Last Admin: 06/08/16 11:34 Dose: Not Given Theophylline (Chato-Dur) 300 mg PO BID [facility] Stop: 07/08/16 09:01 Last Admin: 06/08/16 11:34 Dose: Not Given Review of Systems - Review of Systems Abdominal: Present: Constipation. Absent: Nausea, Vomiting, Hematemesis, Abdominal Pain, Melena, Bright blood from rectum Misc: All systems neg except as marked Physical Examination - Exam Vital Signs: Vital Signs - Last Taken Temp 36.5 C 06/08/16 07:46 Pulse 71 06/08/16 10:57 Resp 16 06/08/16 10:57 BP 137/80 06/08/16 07:46 Pulse Ox 96 06/08/16 07:46 O2 Oxygen Delivery Method Room Air Constitutional: Present: Alert, Oriented x3, Cooperative, No distress ENT Exam: Present: normal ENT inspection Neck: Present: normal inspection Respiratory: Present: lungs clear, normal breath sounds, no respiratory distress , no accessory muscle use Cardiovascular/Chest: Present: no JVD Abdomen: Present: soft, nontender, nondistended, no rebound tenderness, no hepatospenomegaly, no masses Skin Exam: Present: normal color, warm/dry Neurologic: Present: no motor/sensory deficits - Results and Findings: Lab/Microbiology results last 24 hrs: Abnormal/Pending Laboratory Last 24 HRS 06/08/16 06/08/16 06/07/16 05:38 05:38 22:01 RBC 4.26 L Hgb 13.3 L Hct 40.0 L MCH 31.2 H RDW 14.4 H MPV 10.3 H Immature Gran % (Auto) 1.10 H Immature Gran # (Auto) 0.11 H Neutrophils % 76.8 H Lymphocytes % 12.5 L Neutrophils # 7.9 H Lymphocytes # 1.3 L Chloride 109 H Alkaline Phosphatase 44 L B-Natriuretic Peptide 1163 H Total Protein 5.7 L Albumin 2.6 L Gastric Occult Blood Positive H - Assessments/Findings (1) Constipation by delayed colonic transit Diagnosis(s): A: Improved bowel function. Doubt Gastric outlet obstruction. Most likely obstipation. P: Plans are for a more rigorous bowel program. Ongoing protonix in light of his heme positive gastric succus and ongoing prednisone therapy may be a good idea. Thank you for this kind consult. Problem: Resolved
--- NOTE | 2016-06-08 12:39 | PN ---
Subjective - Date and Time Seen Date: 06/08/16 Time: 12:35 Subjective Narrative: Feels better. No nausea. No vomiting. No pain. Breathing ok. Objective - Review of Systems Generalized/Overall Review: Reports: Weakness, Malaise EENTM: Reports: No Symptoms Reported Respiratory: Reports: Cough Cardiac: Reports: No Symptoms Reported Abdominal: Reports: No Symptoms Reported Genitourinary Symptoms: Reports: No Symptoms Reported Musculoskeletal Complaints: Reports: No Symptoms Reported Neurological: Reports: No Symptoms Reported Skin: Reports: No Symptoms Reported Endocrine: Reports: No Symptoms Reported Misc: All systems neg except as marked - Vitals Vitals: Last Vital Signs Selected Entries 06/08/16 06/08/16 06/08/16 07:46 10:47 10:57 Temperature 36.5 C Temperature Oral Source Pulse Rate 86 88 71 Respiratory 16 16 16 Rate Blood Pressure 137/80 O2 Sat by Pulse 96 Oximetry Oxygen Delivery Room Air Method - Abnormal Lab Findings Abnormal Lab Findings: Abnormal Lab Results 06/07/16 06/08/16 06/08/16 Range/Units 22:01 05:38 05:38 RBC 4.26 L (4.7-6.0) M/mm3 Hgb 13.3 L (13.5-18.0) gm/dL Hct 40.0 L (42.0-52.0) % MCH 31.2 H (27-31) pg RDW 14.4 H (11.5-14.0) % MPV 10.3 H (6.0-9.5) fl Immature Gran % (Auto) 1.10 H (0.001-0.429) % Immature Gran # (Auto) 0.11 H (0.000-0.0310) K/mm3 Neutrophils % 76.8 H (42-75.0) % Lymphocytes % 12.5 L (20-51) % Neutrophils # 7.9 H (1.3-6.0) K/mm3 Lymphocytes # 1.3 L (1.5-3.5) k/mm3 Chloride 109 H (97-106) mmol/L Alkaline Phosphatase 44 L (50-170) U/L B-Natriuretic Peptide 1163 H (5-650) pg/mL Total Protein 5.7 L (6.2-8.2) gm/dL Albumin 2.6 L (3.4-5.0) gm/dl Gastric Occult Blood Positive H - Exam Constitutional: Present: Alert, Oriented x3, Cooperative, Well developed, Well nourished, No distress ENT Exam: Present: normal ENT inspection, hard of hearing Neck: Present: normal inspection Respiratory: Present: no respiratory distress, decreased breath sounds Cardiovascular/Chest: Present: regular rate, rhythm, no murmur Abdomen: Present: Normal bowel sounds, soft, nontender, nondistended, no rebound tenderness, no hepatospenomegaly, no masses Extremity: Present: pedal edema Skin Exam: Present: normal color, warm/dry, no cyanosis Neurologic: Present: alert, oriented x 3 Appearance: Present: appropriate appearance, neat Eye contact: Present: cooperative, good eye contact Assessment/Plan Plan Narrative: Enemas. Increase laxatives. Ambulate. Labs and abdominal xray tomorrow. Hopefully back to residential tomorrow. - Problems/Diagnosis (1) GIB (gastrointestinal bleeding) Problem: Suspected (2) CHF NYHA class II (symptoms with moderately strenuous activities) Problem: Chronic Qualifiers: Congestive heart failure type: unspecified congestive heart failure type Qualified Code(s): I50.9 - Heart failure, unspecified (3) Chronic GERD Problem: Chronic (4) Chronic back pain greater than 3 months duration Problem: Chronic (5) Chronic kidney disease, stage 3 Problem: Chronic (6) Chronic obstructive lung disease Problem: Chronic (7) Depression with anxiety Problem: Chronic (8) Hypertension Problem: Chronic Qualifiers: Hypertension type: essential hypertension Qualified Code(s): I10 - Essential (primary) hypertension (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
[2016-06-08] MEDS: POLYETHYLENE GLYCOL 3350 119 GM BTL PO SCH ×2 (12:54→21:24)
[2016-06-09] MEDS: metroNIDAZOLE 500 MG TABLET PO SCH ×2 (02:25→09:13)
[2016-06-09 05:41] LABS: Mean Cell Volume 93.5 fl (78-100); Mean Corpuscular Hemoglobin 31.2 pg (27-31); Mean Corpuscular Hgb Conc 33.3 g/dl (32-36); Mean Platelet Volume 10.8 fl (6.0-9.5); Neutrophil # 4.7 K/mm3 (1.3-6.0); Platelet Count 186 K/mm3 (150-450); Red Blood Count 3.85 M/mm3 (4.7-6.0); Red Cell Distribution Width 14.3 % (11.5-14.0)
[2016-06-09] MEDS: ALBUTEROL SULFATE/IPRATROPIUM 3 ML NEBU IH SCH ×3 (06:05→15:01)
[2016-06-09 06:09] LABS: Anion Gap 9.4 mmol/L (6.8-13.8); BUN/Creatinine Ratio 10.5 (9.0-21.6); Calcium * 7.9 mg/dL (7.9-10.9); Carbon Dioxide 26.4 mmol/L (24-32.6); Estimated Creat Clear 68.3; Potassium 3.8 mmol/L (3.4-4.6)
[2016-06-09] MEDS: MULTIVITAMINS 1 CAP CAPSULE PO SCH (09:13)
[2016-06-09] MEDS: THEOPHYLLINE ANHYDROUS 300 MG TAB.SR.12H PO SCH (09:13)
[2016-06-09] MEDS: FLUoxetine HCL 20 MG CAPSULE PO SCH (09:13)
[2016-06-09] MEDS: POLYETHYLENE GLYCOL 3350 119 GM BTL PO SCH (09:14)
[2016-06-09] MEDS: BISACODYL 5 MG TABLET.DR PO SCH (09:14)
[2016-06-09] MEDS: predniSONE 10 MG TABLET PO SCH (09:14)
[2016-06-09] MEDS: MAGNESIUM CITRATE 300 ML BTL PO SCH ×2 (09:15→11:03)
[2016-06-09 10:20] VITALS: BP 123/74
[2016-06-09] MEDS: CIPROFLOXACIN HCL 500 MG TABLET PO SCH (10:22)
--- NOTE | 2016-06-09 12:16 | DS ---
(1) GIB (gastrointestinal bleeding) Problem: Suspected (2) CHF NYHA class II (symptoms with moderately strenuous activities) Problem: Chronic Qualifiers: Congestive heart failure type: unspecified congestive heart failure type Qualified Code(s): I50.9 - Heart failure, unspecified (3) Chronic GERD Problem: Chronic (4) Chronic back pain greater than 3 months duration Problem: Chronic (5) Chronic kidney disease, stage 3 Problem: Chronic (6) Chronic obstructive lung disease Problem: Chronic (7) Depression with anxiety Problem: Chronic (8) Hypertension Problem: Chronic Qualifiers: Hypertension type: essential hypertension Qualified Code(s): I10 - Essential (primary) hypertension (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 Obstipated. One large BM yesterday. Refused enemas. Refusing to walk or be pulled up in bed. Procedures Performed: none Discharge Disposition: [facility] Disposition: [facility] [place] Condition: Good Discharge Activity: Activity as tolerated Discharge Diet: General/regular food Discharge Level of Care:: SNF - [facility] Referrals: Grabiel Stoddard MD [Primary Care Provider] - Problem Oriented Discharge Instructions to Patient/Family: Constipation, Adult , Usew-xs-Baco Additional Patient Instructions (free text): Antibiotics for a full ten days, starting today Prescriptions (Any new or edited meds): Bisacodyl [Dulcolax] 10 mg PO TID #1 tablet. Magnesium Hydroxide [Milk Of Magnesia] 30 ml PO TID PRN #1 ml PRN Reason: Constipation Polyethylene Glycol 3350 [Miralax] 17 gm PO TID #1 btl Sennosides/Docusate Sodium [Senokot-S] 2 tab PO TID #1 tab Complete Home Medications List: Complete Home Medication List: Multivitamins [Multivitamin Pawan] 1 cap PO DAILY 07/09/13 Theophylline Anhydrous [Chato-Dur] 300 mg PO BID tab.sr.12h 10/04/15 Albuterol Sulfate/Ipratropium [Duoneb 2.5-0.5MG/3ML Soln] 3 ml IH QID 01/21/16 FLUoxetine HCL [Prozac] 20 mg PO DAILY #30 cap 03/14/16 Albuterol Sulfate [Albuterol Sulfate 2.5 MG/0.5ML] 2.5 mg IH Q4H PRN #1 vial.neb 06/05/16 Ciprofloxacin HCl [Cipro] 500 mg PO BID #20 tab 06/05/16 metroNIDAZOLE [Flagyl] 500 mg PO QID #40 tab 06/05/16 predniSONE [Prednisone] 10 mg PO DAILY tablet 06/05/16 Acetaminophen [Tylenol] 650 mg PO QID PRN #0 tablet 06/09/16 Bisacodyl [Dulcolax] 10 mg PO TID #1 tablet. 06/09/16 Ciprofloxacin HCl [Cipro] 500 mg PO BID@1100,2300 tablet 06/09/16 Magnesium Hydroxide [Milk Of Magnesia] 30 ml PO TID PRN #1 ml 06/09/16 Polyethylene Glycol 3350 [Miralax] 17 gm PO TID #1 btl 06/09/16 Sennosides/Docusate Sodium [Senokot-S] 2 tab PO TID #1 tab 06/09/16
[2016-06-09] MEDS ORDERED: MAGNESIUM CITRATE 300 ML BTL PO SCH (14:00)
== END 2016-06-09 15:00 ==
LOC: ER 16:28 → UNDOADMOB 20:36 → MS 20:36
PROVIDERS: ADMIT Nurse Practitioner Gerontology; ATTEND Allergy & Immunology
DX: K31.1 Adult hypertrophic pyloric stenosis (principal); K92.2 Gastrointestinal hemorrhage, unspecified; J44.9 Chronic obstructive pulmonary disease, unspecified; I12.9 Hypertensive chronic kidney disease with stage 1 through stage 4 chronic kidney disease, or unspecified chronic kidney disease; N18.3 Chronic kidney disease, stage 3 (moderate); Z87.891 Personal history of nicotine dependence; I50.9 Heart failure, unspecified; F33.1 Major depressive disorder, recurrent, moderate
CPT/HCPCS: 36415; 71010; 74020; 80048; 80053; 82150; 82272; 83690; 83880; 85025; 87081; 94640; 96374; 96375; 99284; G0378

== ENCOUNTER 2016-06-18 10:08 | Observation (INO) | payer MEDICARE ==
[2016-06-18] MEDS ORDERED: MORPHINE SULFATE 4 MG/ML SYRG IV PRN (10:12)
[2016-06-18] MEDS ORDERED: ACETAMINOPHEN 325 MG TABLET PO PRN (10:12)
[2016-06-18] MEDS ORDERED: ALBUTEROL SULFATE/IPRATROPIUM 3 ML NEBU IH PRN (10:12)
[2016-06-18] MEDS ORDERED: POLYVINYL ALCOHOL 150 DROP BTL EACHEYE PRN (10:12)
[2016-06-18] MEDS ORDERED: LORazepam 2 MG/ML DISP.SYRIN IV PRN (10:12)
[2016-06-18] MEDS ORDERED: PROMETHAZINE HCL 12.5 MG SUPP.RECT RC PRN (10:12)
[2016-06-18] MEDS ORDERED: BISACODYL 10 MG SUPP.RECT RC PRN (10:12)
[2016-06-18] MEDS ORDERED: ATROPINE SULFATE 150 DROP BTL SL PRN (10:12)
[2016-06-18] MEDS ORDERED: ONDANSETRON HCL/PF 2 MG/ML VIAL IV PRN (10:12)
[2016-06-18] MEDS ORDERED: HYDROcodone/ACETAMINOPHEN 5 ML UDC PO PRN (10:12)
--- OUTSIDE RECORDS SUMMARY | 2016-06-18 10:12 | XMS REPORT | Continuity of Care Document ---
:1940 Author Organization [facility] ([facility]) [place] [address] Phone [phone] Care Team Providers Name Role Phone Lela Hensley Primary Care Provider [phone] Source Comments This disclosure is being made pursuant to the Care Everywhere program, applicable federal and state laws, and may not contain all informaitonavailable regarding this patient.[facility] ([facility]) Active Allergies and Adverse Reactions Allergen [...]
--- OUTSIDE RECORDS SUMMARY | 2016-06-18 10:12 | XMS REPORT | Continuity of Care Document ---
:1940 Author Organization [employer] [place] [address] Care Team Providers Name Role Phone Lela Hensley Primary Care Provider [phone] Source Comments This disclosure is being made pursuant to the Inuvo program and maynot contain all information available regarding this patient.[employer] Active Allergies and Adverse Reactions Allergen Noted [...]
[2016-06-18] MEDS ORDERED: HYDROcodone/ACETAMINOPHEN 5 ML UDC ONE (11:38)
[2016-06-18] MEDS: HYDROcodone/ACETAMINOPHEN 5 ML UDC PO PRN ×3 (14:31→23:22)
--- NOTE | 2016-06-18 14:32 | PN ---
Joel Note - Interim Narrative: 06/18/16 14:25 Patient admitted to observation for pain control and comfort measures. The patient lives at the [facility] and apparently he is supposed to be evaluated by Hospice later this week. However, he is having worsening abdominal distension and pain. The only pain medication he has ordered at the facility is Tylenol. I spoke with April from the [place] and told her I would be happy to give her orders over the phone for medications to help keep the patient comfortable. She stated that they do not have any narcotic medications available at their facility to give to the patient and she called their on-call pharmacy which she states was closed so our only option was for the patient to be admitted overnight for comfort measures. I will have our care coordinators/family caseworker get in contact with the hospice agency of [facility] in the AM and will plan to discharge the patient back to the [facility] tomorrow.
--- NOTE | 2016-06-18 22:12 | HP ---
Chief Complaint - Chief Complaint Date of Service: 06/18/16 Time of Service: 19:25 Chief Complaint: bowel obstruction pain, GERD and abdominal pain History of Present Illness: 76 years old male adm to the hospital with reports of nausea, vomiting, abdominal pain and constipation. pt stated he typically have bowel movement every other day and he haven't had good bowel movement x2 days. They were unable to control his pain at the alf so he was sent to the hospital for pain control. pt was getting comfort measures at the nursing and it will continue during this adm, with plans to consult with hospice. PMH significant for CHF, constipation, COPD, pneumonia and GERD. Plan of care discussed with pt he verbalized understanding and agrees. - Patient's Past Medical History Patient History - Medical: Anxiety, Depression, GERD, Osteoarthritis, Renal Failure, UTI'S, Other Patient History - Cardiac/Respiratory: Bronchitis, CHF, COPD, Hypertension Patient History - Cancer: No Hx of Cancer Patient History - Surgical Procedures: Cholecystectomy, Colonoscopy, EGD, T & A , Other - Tonsillectomy, cystoscopy Patient History - Other: None - Family History Mother Family History - Medical: , Other - bowel obstruction Family History - Cardiac/Respiratory: Coronary Heart Disease, Hypertension Father Family History - Medical: , History Unknown Family History - Cardiac/Respiratory: History Unknown Sister Family History - Medical: History Unknown Family History - Cardiac/Respiratory: Asthma, Hypertension - Social History Living Situations: alf Abuse History: No History of abuse Psych History: Hx of Anxiety, Hx of Depression, Current tx/ever been on anti- depressants or anti-anxiety meds Smoking Status: Former smoker Have you smoked in the past 12 months: No Do you dip or chew tobacco: No Patient requests Smoking Cessation Consult: No Initiate information on Smoking Cessation: No Alcohol Use: none Drug Use: none - Immunizations Immunizations Up to Date: Yes Hx Pneumococcal Vaccination: Yes History of Influenza Vaccine: Yes Review Of Systems (GEN) - Review of Systems Generalized/Overall Review: Present: No Symptoms Reported EENTM: Present: No Symptoms Reported Respiratory: Present: Cough - non productive, Shortness of Breath Cardiac: Present: No Symptoms Reported Abdominal: Present: Nausea, Vomiting, Abdominal Pain, Constipation Genitourinary: Present: No Symptoms Reported Musculoskeletal: Present: No Symptoms Reported Neurological: Present: No Symptoms Reported Skin: Present: Rash Endocrine: Present: No Symptoms Reported Immunizations: IMMUNIZATION HX Immunizations Up to Date Yes History of Influenza Vaccine Yes Hx Pneumococcal Vaccination Yes Allergies/Adverse Reactions: Allergies Allergy/AdvReac Type Severity Reaction Status Date / Time codeine [Codeine] Allergy Nausea Verified 06/18/16 10:22 ketorolac tromethamine AdvReac Verified 06/18/16 10:22 [From Toradol] Home Medications: HOME MEDICATIONS Multivitamins [Multivitamin Pawan] 1 cap PO DAILY 07/09/13 [Last Taken 09:00] Theophylline Anhydrous [Chato-Dur] 300 mg PO BID tab.sr.12h 10/04/15 [Last Taken Unknown] Albuterol Sulfate/Ipratropium [Duoneb 2.5-0.5MG/3ML Soln] 3 ml IH QID 01/21/16 [ Last Taken Unknown] FLUoxetine HCL [Prozac] 20 mg PO DAILY #30 cap 03/14/16 [Last Taken Unknown] Albuterol Sulfate [Albuterol Sulfate 2.5 MG/0.5ML] 2.5 mg IH Q4H PRN #1 vial.neb 06/05/16 [Last Taken Unknown] Ciprofloxacin HCl [Cipro] 500 mg PO BID #20 tab 06/05/16 [Last Taken Unknown] metroNIDAZOLE [Flagyl] 500 mg PO QID #40 tab 06/05/16 [Last Taken Unknown] predniSONE [Prednisone] 10 mg PO DAILY tablet 06/05/16 [Last Taken Unknown] Acetaminophen [Tylenol] 650 mg PO QID PRN #0 tablet 06/09/16 [Last Taken Unknown ] Bisacodyl [Dulcolax] 10 mg PO TID #1 tablet. 06/09/16 [Last Taken Unknown] Magnesium Hydroxide [Milk Of Magnesia] 30 ml PO TID PRN #1 ml 06/09/16 [Last Taken Unknown] Polyethylene Glycol 3350 [Miralax] 17 gm PO TID #1 btl 06/09/16 [Last Taken Unknown] Sennosides/Docusate Sodium [Senokot-S] 2 tab PO TID #1 tab 06/09/16 [Last Taken Unknown] Exam - Exam Vital Signs: Vital Signs - Last Taken Temp 36.4 C L 06/18/16 11:00 Pulse 96 06/18/16 11:00 Resp 22 H 06/18/16 11:00 BP 120/72 06/18/16 11:00 Pulse Ox 98 06/18/16 11:00 Constitutional: Present: Alert, Oriented x3, Cooperative, Mild distress, Elderly ENT Exam: Present: moist mucous membranes Eye Exam: bilateral eye: PERRL Neck: Present: full range of motion Back Exam: Present: normal inspection Breasts: Present: Exam deferred Respiratory: Present: chest non-tender, no respiratory distress, decreased breath sounds, rales Cardiovascular/Chest: Present: normal peripheral pulses, regular rate, rhythm, no chest tenderness, no edema, no gallop Peripheral Pulses: dorsalis-pedis (R): 2+, dorsalis-pedis (L): 2+ Abdomen: Present: soft, obese, distended, hernia, hypoactive Extremity: Present: normal range of motion, non-tender, normal inspection Skin Exam: Present: normal color, warm/dry, no cyanosis Neurologic: Present: oriented x 3 Appearance: Present: appropriate appearance, appropriate insight Eye contact: Present: cooperative, good eye contact Thoughts: Present: normal thought pattern Assessment/Plan - Narrative Narrative: Constipation delayed colonic transit Pt stated last bowel movement was two days ago. he have had recurrent bowel obstructions in the past IV/oral pain control Supportive care Laxative/ stool softeners schedule and PRN COPD Supplemented oxygen Continue with home medications inhalers and nebulizers GERD Give Protonix Code status: DNR VTE ppx: GI ppx: Protonix Anticipate discharge to alf 0-1 day and follow up with hospice Time 35 minutes - Assessment/Plan (1) Constipation by delayed colonic transit Problem: Acute (2) CHF (congestive heart failure) Problem: Chronic Qualifiers: Congestive heart failure type: unspecified congestive heart failure type Congestive heart failure chronicity: acute on chronic Qualified Code(s): I50.9 - Heart failure, unspecified (3) COPD (chronic obstructive pulmonary disease) Problem: Chronic Qualifiers: COPD type: chronic bronchitis Chronic bronchitis type: simple Qualified Code(s): J41.0 - Simple chronic bronchitis (4) Chronic GERD Problem: Chronic
[2016-06-18] MEDS ORDERED: MINERAL OIL 1 ENEMA BTL RC ONE (22:42)
[2016-06-18 23:16] LABS: Albumin * 2.8 gm/dl (3.4-5.0); Anion Gap 13.7 mmol/L (6.8-13.8); BUN/Creatinine Ratio 8.7 (9.0-21.6); Bilirubin, Total 0.7 mg/dL (0.0-1.1); Calcium * 8.4 mg/dL (7.9-10.9); Carbon Dioxide 25.8 mmol/L (24-32.6); Potassium 3.5 mmol/L (3.4-4.6); Total Protein 6.1 gm/dL (6.2-8.2)
[2016-06-18] MEDS: PANTOPRAZOLE SODIUM 40 MG TABLET.EC PO SCH (23:22)
[2016-06-19 06:36] VITALS: BP 123/75
[2016-06-19] MEDS: PANTOPRAZOLE SODIUM 40 MG TABLET.EC PO SCH (06:56)
[2016-06-19] MEDS: HYDROcodone/ACETAMINOPHEN 5 ML UDC PO PRN (06:57)
[2016-06-19] MEDS ORDERED: ACETAMINOPHEN 325 MG TABLET PO PRN (09:45)
[2016-06-19] MEDS ORDERED: SENNOSIDES/DOCUSATE SODIUM 1 TAB TABLET PO PRN (09:45)
[2016-06-19] MEDS ORDERED: POLYETHYLENE GLYCOL 3350 119 GM BTL PO PRN (09:45)
[2016-06-19] MEDS ORDERED: BISACODYL 5 MG TABLET.DR PO PRN (09:45)
[2016-06-19] MEDS ORDERED: ALBUTEROL SULFATE 2.5 MG/3 ML VIAL.NEB IH PRN (09:45)
[2016-06-19] MEDS ORDERED: MAGNESIUM HYDROXIDE 30 ML UDC PO PRN (09:45)
--- NOTE | 2016-06-19 09:45 | DS ---
(1) Comfort measures only status Problem: Acute Description of Stay: ADMISSION DATE: 06.18.2016. DISCHARGE DATE: 06.19.2016 HOSPITAL COURSE: Patient admitted to observation for pain control and comfort measures. The patient lives at the [facility] and apparently he was supposed to be evaluated by Hospice later this week. However, he was having worsening abdominal distension and pain. The only pain medication he had ordered at the facility is Tylenol. I spoke with April from the [place] and told her I would be happy to give her orders over the phone for medications to help keep the patient comfortable. She stated that they do not have any narcotic medications available at their facility to give to the patient and she called their on-call pharmacy which she stated was closed so our only option was for the patient to be admitted overnight for comfort measures. Patient was discharged back to the [facility] the following morning and he will be evaluated by Hospice later today after he returns to the facility. Procedures Performed: none Discharge Disposition: [facility] Disposition: [facility] Condition: Fair Discharge Activity: Activity as tolerated Discharge Diet: General/regular food Discharge Level of Care:: Hospice - Assisted Referrals: Grabiel Stoddard MD [Primary Care Provider] - Prescriptions (Any new or edited meds): Atropine Sulfate [Atropine 1% Ophthalmic Solution] 2 drop SL Q2H PRN #1 btl PRN Reason: Secretions Lorazepam [Lorazepam Intensol] 2 mg PO Q4H PRN #1 bottle PRN Reason: Anxiety Morphine Sulfate [Morphine Sulfate 10 MG/5ML Oral Solution] 10 mg PO Q2H PRN #1 bottle PRN Reason: Pain Ondansetron [Zofran Odt] 4 mg PO Q4H PRN #30 tab.rapdis PRN Reason: Nausea Promethazine HCl [Phenergan Suppository] 12.5 mg RC Q4H PRN #15 supp.rect PRN Reason: Nausea Complete Home Medications List: Complete Home Medication List: Albuterol Sulfate/Ipratropium [Duoneb 2.5-0.5MG/3ML Soln] 3 ml IH QID 01/21/16 FLUoxetine HCL [Prozac] 20 mg PO DAILY #30 cap 03/14/16 Albuterol Sulfate [Albuterol Sulfate 2.5 MG/0.5ML] 2.5 mg IH Q4H PRN #1 vial.neb 06/05/16 Acetaminophen [Tylenol] 650 mg PO QID PRN #0 tablet 06/09/16 Magnesium Hydroxide [Milk Of Magnesia] 30 ml PO TID PRN #1 ml 06/09/16 Polyethylene Glycol 3350 [Miralax] 17 gm PO TID #1 btl 06/09/16 Atropine Sulfate [Atropine 1% Ophthalmic Solution] 2 drop SL Q2H PRN #1 btl Bisacodyl [Dulcolax] 10 mg PO TID PRN #0 tablet. 06/19/16 Lorazepam [Lorazepam Intensol] 2 mg PO Q4H PRN #1 bottle 06/19/16 Morphine Sulfate [Morphine Sulfate 10 MG/5ML Oral Solution] 10 mg PO Q2H PRN #1 bottle 06/19/16 Ondansetron [Zofran Odt] 4 mg PO Q4H PRN #30 tab.rapdis 06/19/16 Polyethylene Glycol 3350 [Miralax] 17 gm PO TID PRN #0 btl 06/19/16 Polyvinyl Alcohol [Artificial Tears] 2 drop EACHEYE PRN PRN #0 btl 06/19/16 Promethazine HCl [Phenergan Suppository] 12.5 mg RC Q4H PRN #15 supp.rect Sennosides/Docusate Sodium [Senokot-S] 2 tab PO TID PRN #0 tablet 06/19/16
[2016-06-19] MEDS ORDERED: ALBUTEROL SULFATE/IPRATROPIUM 3 ML NEBU IH SCH (11:00)
[2016-06-20] MEDS ORDERED: FLUoxetine HCL 20 MG CAPSULE PO SCH (09:00)
== END 2016-06-19 11:55 ==
LOC: MS 10:08
PROVIDERS: ADMIT Internal Medicine; ATTEND Allergy & Immunology
DX: K56.60 Unspecified intestinal obstruction (principal); R10.9 Unspecified abdominal pain; K59.01 Slow transit constipation; K21.9 Gastro-esophageal reflux disease without esophagitis; N19 Unspecified kidney failure; R11.2 Nausea with vomiting, unspecified; I50.9 Heart failure, unspecified; J44.9 Chronic obstructive pulmonary disease, unspecified; Z87.891 Personal history of nicotine dependence
CPT/HCPCS: 36415; 80053; 83880; 87081; 94640; G0378; G0379

== ENCOUNTER 2016-07-28 11:35 | Emergency (ER) | payer MEDICARE ==
[2016-07-28 11:49] LABS: Urine Bilirubin 1 mg/dl (NEGATIVE); Urine Blood Negative /ul (NEGATIVE); Urine Ketone Negative (NEGATIVE); Urine Nitrite Negative (NEGATIVE); Urine Protein 30 mg/dL (NEGATIVE); Urine Urobilinogen >=8.0 EU/dl (NORMAL); Urine pH 6.5 pH (5.0-7.0)
[2016-07-28 11:59] LABS: Urine Appearance Clear; Urine Bacteria 1+; Urine Color Dark Yellow; Urine RBC None Seen /hpf (0-5)
[2016-07-28 12:02] LABS: Hematocrit 42.2 % (42.0-52.0); Hemoglobin 14.2 gm/dL (13.5-18.0); Mean Cell Volume 89.6 fl (78-100); Mean Corpuscular Hemoglobin 30.1 pg (27-31); Mean Corpuscular Hgb Conc 33.6 g/dl (32-36); Neutrophil # 7.6 K/mm3 (1.3-6.0); Neutrophil % 78.4 % (42-75.0); Platelet Count 238 K/mm3 (150-450); Red Blood Count 4.71 M/mm3 (4.7-6.0); White Blood Count 9.7 K/mm3 (4.0-10.5)
[2016-07-28 12:03] LABS: Cocaine Ur Negative (NEGATIVE); Urine Barbiturate Negative (NEGATIVE); Urine Benzodiazepines Negative (NEGATIVE); Urine PCP Negative (NEGATIVE); Urine THC Negative (NEGATIVE)
[2016-07-28 12:04] LABS: Urine Opiates Positive (NEGATIVE)
[2016-07-28 12:14] LABS: Albumin * 2.8 gm/dl (3.4-5.0); Anion Gap 14.5 mmol/L (6.8-13.8); BUN/Creatinine Ratio 12.6 (9.0-21.6); Bilirubin, Total 1.5 mg/dL (0.0-1.1); Calcium * 9.4 mg/dL (7.9-10.9); Carbon Dioxide 27.5 mmol/L (24-32.6); Total Protein 6.6 gm/dL (6.2-8.2)
--- OUTSIDE RECORDS SUMMARY | 2016-07-28 12:50 | XMS REPORT | Continuity of Care Document ---
:1940 Author Organization [facility] ([facility]) Address [place] [address] Phone [phone] Care Team Providers Name Role Phone Lela Hensley Primary Care Provider [phone] Source Comments This disclosure is being made pursuant to the Care Everywhere program, applicable federal and state laws, and may not contain all informaitonavailable regarding this patient.[facility] ([facility]) Active Allergies and Adverse Reactions [...]
--- OUTSIDE RECORDS SUMMARY | 2016-07-28 12:50 | XMS REPORT | Continuity of Care Document ---
:1940 Author Organization [facility] [place] [address] Care Team Providers Name Role Phone Lela Hensley Primary Care Provider [phone] Source Comments This disclosure is being made pursuant to the [employer] program and maynot contain all information available regarding this patient.[facility] Active Allergies and Adverse Reactions Allergen Noted [...]
--- NOTE | 2016-07-28 14:18 | ERNOTE ---
Neuro HPI ER Record Date of Service: 07/28/16 Presenting Symptoms: confusion Time Seen by Provider: 07/28/16 12:29 Source: EMS, long-term records Exam Limitations: dementia Immunizations: IMMUNIZATION HX Immunizations Up to Date Yes History of Influenza Vaccine Yes Hx Pneumococcal Vaccination Yes Allergies/Adverse Reactions: Allergies Allergy/AdvReac Type Severity Reaction Status Date / Time codeine [Codeine] Allergy Nausea Verified 06/18/16 10:22 ketorolac tromethamine AdvReac Verified 06/18/16 10:22 [From Toradol] Home Medications: HOME MEDICATIONS Albuterol Sulfate/Ipratropium [Duoneb 2.5-0.5MG/3ML Soln] 3 ml IH QID 01/21/16 [ Last Taken Unknown] Albuterol Sulfate [Albuterol Sulfate 2.5 MG/0.5ML] 2.5 mg IH Q4H PRN #1 vial.neb 06/05/16 [Last Taken Unknown] Acetaminophen [Tylenol] 650 mg PO QID PRN #0 tablet 06/09/16 [Last Taken Unknown ] Polyethylene Glycol 3350 [Miralax] 17 gm PO TID PRN #0 btl 06/19/16 [Last Taken Unknown] ALPRAZolam [Xanax] 1 mg PO TID PRN 07/28/16 [Last Taken Unknown] Albuterol Sulfate [Proair Hfa] 2 puff IH QID PRN 07/28/16 [Last Taken Unknown] Enalapril Maleate [Vasotec] 5 mg PO DAILY 07/28/16 [Last Taken Unknown] FLUoxetine HCL [Prozac] 40 mg PO DAILY 07/28/16 [Last Taken Unknown] Furosemide 20 mg PO 07/28/16 [Last Taken Unknown] Potassium Chloride [Klor-Con 10] 10 meq PO 07/28/16 [Last Taken Unknown] Theophylline Anhydrous [Theophylline] 300 mg PO Q12H 07/28/16 [Last Taken Unknown] predniSONE [Prednisone] 10 mg PO DAILY 07/28/16 [Last Taken Unknown] - History of Present Illness Narrative: more confused, quiet, was recently started on Seroquel and Klonopin. No history available from him. Date (Duration): 07/28/16 Onset: gradual onset - Character of Deficits Baseline Cognition: Present: alert but confused Review of Systems - Narrative Narrative: Unable due to dementia - Review of Systems Constitutional: Absent: fever, chills Respiratory: Present: no symptoms reported - Patient's Past Medical History Patient History - Medical: Anxiety, Depression, GERD, Osteoarthritis, Renal Failure, UTI'S, Other Patient History - Cardiac/Respiratory: Bronchitis, CHF, COPD, Hypertension Patient History - Cancer: No Hx of Cancer Patient History - Surgical Procedures: Cholecystectomy, Colonoscopy, EGD, T & A , Other Patient History - Other: None - Family History Mother Family History - Medical: , Other Family History - Cardiac/Respiratory: Coronary Heart Disease, Hypertension Father Family History - Medical: , History Unknown Family History - Cardiac/Respiratory: History Unknown Sister Family History - Medical: History Unknown Family History - Cardiac/Respiratory: Asthma, Hypertension - Social History Living Situations: long-term Abuse History: No History of abuse Psych History: Hx of Anxiety, Hx of Depression, Current tx/ever been on anti- depressants or anti-anxiety meds Alcohol Use: none Drug Use: none - Immunizations Immunizations Up to Date: Yes Hx Pneumococcal Vaccination: Yes History of Influenza Vaccine: Yes Physical Exam - Physical Exam General Appearance: Present: wd/wn, mild distress, thin Eye Exam: Normal inspection: bilateral, PERRL: bilateral Ears, Nose, Throat: Present: normal ENT inspection Neck: Present: supple Respiratory: Present: no respiratory distress, normal breath sounds, chest nontender Cardiovascular/Chest: Present: regular rate, rhythm Gastrointestinal/Abdominal: Present: normal bowel sounds, nontender Neurological Exam: Present: alert, disoriented to time Skin Exam: Present: normal color, warm/dry ED Progress - Vital Signs Vital Signs: Vital Signs 07/28/16 07/28/16 07/28/16 11:35 11:37 11:46 Temperature 36.0 C L Pulse Rate 107 H 122 H 104 H Respiratory 15 16 24 H Rate Blood Pressure 122/81 122/81 113/90 O2 Sat by Pulse 98 100 Oximetry 07/28/16 07/28/16 07/28/16 11:50 12:00 13:23 Temperature Pulse Rate 103 H 107 H 91 Respiratory 14 11 L 15 Rate Blood Pressure 113/90 128/56 110/51 O2 Sat by Pulse 100 98 93 Oximetry - Progress/Reassessment Chief Complaint: Altered Mental Status Departure Clinical Impression: UTI (urinary tract infection), bacterial, Dementia, Hypokalemia - Departure Disposition: [facility] Condition: Fair
[2016-07-28 14:19] VITALS: BP 128/54
== END 2016-07-28 15:20 ==
LOC: ER 11:35
DX: N39.0 Urinary tract infection, site not specified (principal); B96.89 Other specified bacterial agents as the cause of diseases classified elsewhere; F03.90 Unspecified dementia, unspecified severity, without behavioral disturbance, psychotic disturbance, mood disturbance, and anxiety; E87.6 Hypokalemia

== ENCOUNTER 2016-08-18 11:19 | Inpatient (IN) | payer MEDICARE ==
[2016-08-18] MEDS ORDERED: NORMAL SALINE 250 ML IV ONE (11:36)
[2016-08-18] MEDS ORDERED: ONDANSETRON HCL/PF 2 MG/ML VIAL IV ONE (11:36)
[2016-08-18] MEDS ORDERED: ONDANSETRON HCL/PF 2 MG/ML VIAL ONE (11:46)
--- NOTE | 2016-08-18 11:54 | ERNOTE ---
Medical Problem HPI - Narrative Date of Service: 08/18/16 - General Chief Complaint: Nausea/Vomiting Time Seen by Provider: 08/18/16 11:30 Source: patient Exam Limitations: no limitations - Immun/Allergies/Home Medications Immunizations: IMMUNIZATION HX Immunizations Up to Date Yes History of Influenza Vaccine Yes Hx Pneumococcal Vaccination Yes Allergies/Adverse Reactions: Allergies codeine [Codeine] Allergy (Verified 08/18/16 11:27) Nausea ketorolac tromethamine [From Toradol] Adverse Reaction (Verified 08/18/16 11:27) Home Medications: HOME MEDICATIONS Albuterol Sulfate/Ipratropium [Duoneb 2.5-0.5MG/3ML Soln] 3 ml IH QID 01/21/16 [ Last Taken Unknown] Albuterol Sulfate [Albuterol Sulfate 2.5 MG/0.5ML] 2.5 mg IH Q4H PRN #1 vial.neb 06/05/16 [Last Taken Unknown] Acetaminophen [Tylenol] 650 mg PO QID PRN #0 tablet 06/09/16 [Last Taken Unknown ] Polyethylene Glycol 3350 [Miralax] 17 gm PO TID PRN #0 btl 06/19/16 [Last Taken Unknown] ALPRAZolam [Xanax] 1 mg PO TID PRN 07/28/16 [Last Taken Unknown] Albuterol Sulfate [Proair Hfa] 2 puff IH QID PRN 07/28/16 [Last Taken Unknown] FLUoxetine HCL [Prozac] 40 mg PO DAILY 07/28/16 [Last Taken Unknown] Furosemide 20 mg PO DAILY 07/28/16 [Last Taken Unknown] Potassium Chloride [Klor-Con 10] 10 meq PO DAILY 07/28/16 [Last Taken Unknown] Theophylline Anhydrous [Theophylline] 300 mg PO Q12H 07/28/16 [Last Taken Unknown] Enoxaparin Sodium [Lovenox] 70 mg SC BID 08/18/16 [Last Taken Unknown] Mirtazapine [Remeron] 30 mg PO HS 08/18/16 [Last Taken Unknown] Polyethylene Glycol 3350 [Miralax] 17 gm PO TID 08/18/16 [Last Taken Unknown] QUEtiapine FUMARATE [Seroquel] 25 mg PO HS 08/18/16 [Last Taken Unknown] Ranitidine HCl [Zantac] 150 mg PO HS 08/18/16 [Last Taken Unknown] Tiotropium [place] [Spiriva] 18 mcg IH DAILY 08/18/16 [Last Taken Unknown] - History of Present History Narrative: Pt. comes in with c/o coffee ground emesis this morning after he was started on Lovenox yesterday for DVT. Pt. denies any CP, constipation fever, but does c/o abd pain, diarrhea, increased SOB, and distention. Pt. has an extensive history of COPD CHF and other chronic illnesses. Pt. denies any prehospital treatment of these symptoms alleviating factors or aggravating factors. Review of Systems - Review of Systems Constitutional: Present: weakness, fatigue. Absent: recent illness, fever, chills, malaise EYE: Present: no symptoms reported ENT: Present: no symptoms reported Respiratory: Present: shortness of breath. Absent: cough, orthopnea, wheezing Cardiology: Present: no symptoms reported. Absent: chest pain, palpitations, edema Gastrointestinal/Abdominal: Present: nausea, vomiting, diarrhea, abdominal pain , eating less, drinking less. Absent: constipation Genitourinary: Present: no symptoms reported Musculoskeletal: Present: no symptoms reported. Absent: back pain, joint pain Skin: Present: no symptoms reported Neurological: Present: no symptoms reported. Absent: headache, dizziness/light- headedness, numbness, tingling All Other Systems: All systems neg except as marked - Patient's Past Medical History Patient History - Medical: Anxiety, Depression, GERD, Osteoarthritis, Renal Failure, UTI'S Patient History - Cardiac/Respiratory: Bronchitis, CHF, COPD, Hypertension Patient History - Cancer: No Hx of Cancer Patient History - Surgical Procedures: Cholecystectomy, Colonoscopy, EGD, T & A , Other Patient History - Other: None - Family History Mother Family History - Medical: , Other Family History - Cardiac/Respiratory: Coronary Heart Disease, Hypertension Father Family History - Medical: , History Unknown Family History - Cardiac/Respiratory: History Unknown Sister Family History - Medical: History Unknown Family History - Cardiac/Respiratory: Asthma, Hypertension - Social History Living Situations: fdc Abuse History: No History of abuse Psych History: Hx of Anxiety, Hx of Depression, Current tx/ever been on anti- depressants or anti-anxiety meds Smoking Status: Former smoker Alcohol Use: none Drug Use: none - Immunizations Immunizations Up to Date: Yes Hx Pneumococcal Vaccination: Yes History of Influenza Vaccine: Yes Physical Exam - Physical Exam General Appearance: Present: wd/wn, alert, no apparent distress Eye Exam: Normal inspection: bilateral, PERRL: bilateral, EOMI: bilateral Ears, Nose, Throat: Present: normal except -, dry mucous membranes Neck: Present: normal inspection, nontender. Absent: lymphadenopathy (R), lymphadenopathy (L) Respiratory: Present: no respiratory distress, no accessory muscle use, chest nontender, decreased breath sounds Cardiovascular/Chest: Present: regular rate, rhythm, normal peripheral pulses, systolic murmur Gastrointestinal/Abdominal: Present: no organomegaly, tenderness - LLQ, abnormal bowel sounds - tympanic, distended Back Exam: Present: normal inspection Extremity Exam: Present: pedal edema - +1, extremity edema - trace Neurological Exam: Present: alert, oriented, normal mood/affect, no motor/ sensory deficits Skin Exam: Present: cool/dry, pallor ED Progress - Date and Time Seen: Date and Time: 08/18/16 15:[address] Samuel win and we will start pt. on heparin, protonix , and carafate and admit pt to hospital. - Results and Orders Patient's Lab Results:: I have reviewed the patient's lab results. - Vital Signs Patient's Vital Signs:: I have reviewed the patient's vital signs. Vital Signs: Vital Signs 08/18/16 11:22 Temperature 36.8 C Pulse Rate 107 H Respiratory 18 Rate Blood Pressure 125/82 O2 Sat by Pulse 89 L Oximetry - EKG EKG: other - Sinus tach no acute EKG read: Reviewed by me EKG Comments: Interp by Dr Gupta - X-Ray X-Ray #1 X-Ray: abdomen Interpretation: Reviewed by me X-ray Comments: IMPRESSION: 1. Markedly distended stomach with debris within the fundus. 2. Stool retention noted within the colonic segments. 3. Additional comments are as above. - CT/Ultrasound CT/Ultrasound Narrative: IMPRESSION: 1. Positive for acute pulmonary thromboembolism. Please see above for additional details. There is no definite signs of right cardiac strain. 2. Negative for acute thoracic aortic finding. 3. Multifocal pulmonary opacities within the dependent portions of the lungs. Consider multiple pulmonary infarct/hemorrhage from multiple PEs. Other considerations include multifocal pneumonia is include aspiration. 4. Patulous and fluid-filled appearance of the esophagus. Large distended stomach with fluid and food debris within. 5. Potential retained secretions/fluid within the right lower lobe bronchus. 6. Additional comments are as above. - Progress/Reassessment Chief Complaint: Nausea/Vomiting Progress:: Unchanged Departure - Departure Clinical Impression: COPD (chronic obstructive pulmonary disease) Qualifiers: COPD type: unspecified COPD Qualified Code(s): J44.9 - Chronic obstructive pulmonary disease, unspecified CHF (congestive heart failure) Qualifiers: Congestive heart failure type: unspecified congestive heart failure type Congestive heart failure chronicity: acute on chronic Qualified Code(s): I50.9 - Heart failure, unspecified GI bleed Qualifiers: GI bleed type/associated pathology: gastrointestinal hemorrhage with hematemesis Qualified Code(s): K92.0 - Hematemesis Pulmonary embolism Qualifiers: Pulmonary embolism type: other Chronicity: acute Acute cor pulmonale presence: without acute cor pulmonale Qualified Code(s): I26.99 - Other pulmonary embolism without acute cor pulmonale DVT (deep venous thrombosis) Qualifiers: DVT location: lower extremity Affected thrombotic vein of extremity: unspecified vein of extremity Chronicity: acute Laterality: unspecified laterality Qualified Code(s): I82.409 - Acute embolism and thrombosis of unspecified deep veins of unspecified lower extremity Disposition: [facility] Condition: Serious
[2016-08-18 11:57] LABS: Hemoglobin 13.8 gm/dL (13.5-18.0); Mean Cell Volume 89.5 fl (78-100); Mean Corpuscular Hemoglobin 30.1 pg (27-31); Mean Corpuscular Hgb Conc 33.7 g/dl (32-36); Neutrophil # 6.3 K/mm3 (1.3-6.0); Neutrophil % 79.5 % (42-75.0); Platelet Count 183 K/mm3 (150-450); Red Blood Count 4.58 M/mm3 (4.7-6.0); Red Cell Distribution Width 15.6 % (11.5-14.0); White Blood Count 7.9 K/mm3 (4.0-10.5)
[2016-08-18 12:14] LABS: Troponin I Less than 0.017 ng/ml (0.00-0.10)
[2016-08-18 12:16] LABS: ALT 12 U/L (19-67); AST 19 U/L (0-48); Albumin * 2.5 gm/dl (3.4-5.0); Alkaline Phosphatase * 76 U/L (50-170); Anion Gap 10.7 mmol/L (6.8-13.8); BNP * 3569 pg/mL (5-650); BUN/Creatinine Ratio 9.7 (9.0-21.6); Bilirubin, Total 0.9 mg/dL (0.0-1.1); Blood Urea Nitrogen 11 mg/dL (6-23); Ca. Corrected For Albumin 10.2 mg/dL (8.4-10.2); Calcium * 9.3 mg/dL (7.9-10.9); Carbon Dioxide 29.2 mmol/L (24-32.6); Chloride 105 mmol/L (97-106); Glucose * 92 mg/dL (70-110); Potassium 3.9 mmol/L (3.4-4.6); Sodium 141 mmol/L (132-142); Total Protein 6.2 gm/dL (6.2-8.2)
[2016-08-18 12:28] LABS: Prothrombin Time (Patient) 11.4 Seconds (9.4-11.4)
[2016-08-18 12:29] LABS: INR 1.1 INR (0.90-1.10); Partial Thrombolplastin Time 32.3 Seconds (24-32)
--- OUTSIDE RECORDS SUMMARY | 2016-08-18 13:21 | XMS REPORT | Continuity of Care Document ---
:1940 Author Organization [facility] [place] [address] Care Team Providers Name Role Phone Lela Hensley Primary Care Provider [phone] Source Comments This disclosure is being made pursuant to the [employer] program and maynot contain all information available regarding this patient.[employer] [facility] Active Allergies and Adverse Reactions Allergen Noted [...]
--- OUTSIDE RECORDS SUMMARY | 2016-08-18 13:22 | XMS REPORT | Continuity of Care Document ---
:1940 Author Organization [facility] ([facility]) Address [place] [address] Phone [phone] Care Team Providers Name Role Phone Lela Hensley Primary Care Provider [phone] Source Comments This disclosure is being made pursuant to the Care Everywhere program, applicable federal and state laws, and may not contain all informaitonavailable regarding this patient.[facility] ([facility]) Active Allergies and Adverse Reactions Allergen Noted [...]
[2016-08-18] MEDS ORDERED: LIDOCAINE HCL 10 APPL CARTRIDGE TP ONE (14:28)
[2016-08-18] MEDS ORDERED: LIDOCAINE HCL 10 APPL CARTRIDGE ONE (14:31)
--- OUTSIDE RECORDS SUMMARY | 2016-08-18 15:53 | XMS REPORT | Continuity of Care Document ---
:1940 Author Organization [facility] [place] [address] Care Team Providers Name Role Phone Lela Hensley Primary Care Provider [phone] Source Comments This disclosure is being made pursuant to the [employer] program and maynot contain all information available regarding this patient.[facility] Active Allergies and Adverse Reactions Allergen Noted [...]
--- OUTSIDE RECORDS SUMMARY | 2016-08-18 15:53 | XMS REPORT | Continuity of Care Document ---
:1940 Author Organization [facility] ([facility]) Address [place] [address] Phone [phone] Care Team Providers Name Role Phone Lela Hensley Primary Care Provider [phone] Source Comments This disclosure is being made pursuant to the Care Everywhere program, applicable federal and state laws, and may not contain all informaitonavailable regarding this patient.[facility] ([facility]) Active Allergies and Adverse Reactions [...]
[2016-08-18 15:54] LABS: Urine Appearance Slightly Cloudy; Urine Color Dark Yellow
[2016-08-18 15:55] LABS: Urine Bilirubin Negative (NEGATIVE); Urine Blood 250 /ul (NEGATIVE); Urine Ketone Negative (NEGATIVE); Urine Nitrite Negative (NEGATIVE); Urine Protein Negative (NEGATIVE); Urine pH 7.5 pH (5.0-7.0)
[2016-08-18 15:56] LABS: Urine Urobilinogen 8 EU/dl (NORMAL)
[2016-08-18 15:57] LABS: Urine Bacteria None Seen
[2016-08-18] MEDS ORDERED: PANTOPRAZOLE SODIUM 80 MG in NORMAL SALINE 100 ML IV SCH (16:15)
[2016-08-18] MEDS ORDERED: HEPARIN SODIUM,PORCINE 5,000 UNITS/ML VIAL SC SCH (16:15)
[2016-08-18] MEDS ORDERED: ALBUTEROL SULFATE 2.5 MG/3 ML VIAL.NEB IH PRN (17:30)
[2016-08-18] MEDS ORDERED: POLYETHYLENE GLYCOL 3350 119 GM BTL PO PRN (17:30)
[2016-08-18] MEDS: SUCRALFATE 1 G/10 ML UDC PO SCH ×2 (17:50→19:43)
[2016-08-18] MEDS: HEPARIN SODIUM,PORCINE 5,000 UNITS/ML VIAL IV SCH (17:53)
[2016-08-18] MEDS: PANTOPRAZOLE SODIUM 40 MG in NORMAL SALINE 100 ML IV SCH ×2 (17:56→22:24)
[2016-08-18 18:00] LABS: Hematocrit 40.2 % (42.0-52.0); Hemoglobin 13.4 gm/dL (13.5-18.0)
[2016-08-18] MEDS: DEXTROSE 5%-NORMAL SALINE 1,000 ML IV PRN (18:07)
--- NOTE | 2016-08-18 18:14 | HP ---
Chief Complaint - Chief Complaint Date of Service: 08/18/16 Time of Service: 18:01 Chief Complaint: Vomiting coffee ground material History of Present Illness: This is a 76 year old detention resident who presented to the [place] ER today with a complaint of vomiting coffee ground material positive for blood after he was started on Lovenox yesterday for an extensive DVT in his leg. He denied any chest pain, chest pain, constipation or fever, but did complain of abdominal pain, diarrhea, abdominal distension, and shortness of breath. He has had abdominal complaints for many years. Much of his phyisical trouble has been complicated by psychiatric difficulty, including treatment noncompliance. He has an extensive history of COPD CHF and other chronic illnesses. On further evaluation in the ER today, he was found to have multiple pulmonary emboli. - Patient's Past Medical History Patient History - Medical: Anxiety, Depression, GERD, Osteoarthritis, Renal Failure, UTI'S Patient History - Cardiac/Respiratory: Bronchitis, CHF, COPD, Hypertension Patient History - Cancer: No Hx of Cancer Patient History - Surgical Procedures: Cholecystectomy, Colonoscopy, EGD, T & A Patient History - Other: None - Family History Mother Family History - Medical: , Other Family History - Cardiac/Respiratory: Coronary Heart Disease, Hypertension Family History - Cancer: No pertinent family hx Father Family History - Medical: , History Unknown Family History - Cardiac/Respiratory: History Unknown Family History - Cancer: History Unknown Sister Family History - Medical: History Unknown Family History - Cardiac/Respiratory: Asthma, Hypertension Family History - Cancer: No pertinent family hx - Social History Living Situations: detention Abuse History: No History of abuse Psych History: Hx of Anxiety, Hx of Depression, Current tx/ever been on anti- depressants or anti-anxiety meds Smoking Status: Former smoker Have you smoked in the past 12 months: No Alcohol Use: none Drug Use: none - Immunizations Immunizations Up to Date: Yes Hx Pneumococcal Vaccination: Yes History of Influenza Vaccine: Yes Review Of Systems (GEN) - Review of Systems Generalized/Overall Review: Present: Malaise EENTM: Present: No Symptoms Reported Respiratory: Present: Shortness of Breath Cardiac: Present: No Symptoms Reported Abdominal: Present: Vomiting, Abdominal Pain, Diarrhea, Other - abdominal distension Genitourinary: Present: No Symptoms Reported Immunizations: IMMUNIZATION HX Immunizations Up to Date Yes History of Influenza Vaccine Yes Hx Pneumococcal Vaccination Yes Allergies/Adverse Reactions: Allergies Allergy/AdvReac Type Severity Reaction Status Date / Time codeine [Codeine] Allergy Nausea Verified 08/18/16 16:41 ketorolac tromethamine AdvReac Verified 08/18/16 16:41 [From Toradol] Home Medications: HOME MEDICATIONS Albuterol Sulfate/Ipratropium [Duoneb 2.5-0.5MG/3ML Soln] 3 ml IH QID 01/21/16 [ Last Taken Unknown] Albuterol Sulfate [Albuterol Sulfate 2.5 MG/0.5ML] 2.5 mg IH Q4H PRN #1 vial.neb 06/05/16 [Last Taken Unknown] Acetaminophen [Tylenol] 650 mg PO QID PRN #0 tablet 06/09/16 [Last Taken Unknown ] Polyethylene Glycol 3350 [Miralax] 17 gm PO TID PRN #0 btl 06/19/16 [Last Taken Unknown] FLUoxetine HCL [Prozac] 20 mg PO DAILY 07/28/16 [Last Taken Unknown] Furosemide 20 mg PO DAILY 07/28/16 [Last Taken Unknown] Potassium Chloride [Klor-Con 10] 20 meq PO DAILY 07/28/16 [Last Taken Unknown] Theophylline Anhydrous [Theophylline] 300 mg PO Q12H 07/28/16 [Last Taken Unknown] Atropine Sulfate [Atropine 1% Ophthalmic Solution] 1 drop SL Q2H PRN 08/18/16 [ Last Taken Unknown] Bisacodyl [Laxative] 10 mg PO TID PRN 08/18/16 [Last Taken Unknown] Enoxaparin Sodium [Lovenox] 70 mg SC BID 08/18/16 [Last Taken Unknown] Lorazepam 2 mg PO Q4H PRN 08/18/16 [Last Taken Unknown] Magnesium Hydroxide [Milk Of Magnesia] 30 ml PO TID PRN 08/18/16 [Last Taken Unknown] Megestrol Acetate [Megace Suspension] 20 mg PO DAILY 08/18/16 [Last Taken Unknown] Mirtazapine [Remeron] 30 mg PO HS 08/18/16 [Last Taken Unknown] Morphine Sulfate [Morphine Sulfate 10 MG/5ML Oral Solution] 10 mg PO Q2H PRN [Last Taken Unknown] Ondansetron HCl 4 mg PO Q4H PRN 08/18/16 [Last Taken Unknown] Polyvinyl Alcohol [Artificial Tears] 2 drop OP PRN PRN 08/18/16 [Last Taken Unknown] Promethazine HCl [Promethegan] 12.5 mg RC Q4H PRN 08/18/16 [Last Taken Unknown] QUEtiapine FUMARATE [Seroquel] 25 mg PO HS 08/18/16 [Last Taken Unknown] Ranitidine HCl [Zantac] 150 mg PO BID 08/18/16 [Last Taken Unknown] Sennosides/Docusate Sodium [Senna-S Tablet] 2 tab PO TID PRN 08/18/16 [Last Taken Unknown] Tiotropium [place] [Spiriva] 18 mcg IH DAILY 08/18/16 [Last Taken Unknown] clonazePAM [Klonopin] 0.5 mg PO BID 08/18/16 [Last Taken Unknown] predniSONE [Prednisone] 10 mg PO DAILY 08/18/16 [Last Taken Unknown] Exam - Exam Vital Signs: Vital Signs - Last Taken Temp 37.0 C 08/18/16 16:44 Pulse 96 08/18/16 16:44 Resp 18 08/18/16 16:44 BP 104/59 08/18/16 16:44 Pulse Ox 95 08/18/16 16:44 Constitutional: Present: Alert, Oriented x3, Cooperative ENT Exam: Present: normal ENT inspection Eye Exam: bilateral eye: normal inspection, PERRL, EOMI Neck: Present: normal inspection Back Exam: Present: normal inspection Respiratory: Present: normal breath sounds, no respiratory distress Cardiovascular/Chest: Present: regular rate, rhythm, no murmur Abdomen: Present: Normal bowel sounds, soft, no rebound tenderness, no hepatospenomegaly, no masses, tender - slight, distended Extremity: Present: pedal edema Skin Exam: Present: normal color, warm/dry, no cyanosis Neurologic: Present: alert, other Appearance: Present: appropriate appearance, neat Eye contact: Present: cooperative, good eye contact, normal speech Diagnostic Studies: Laboratory Results WBC 7.9 K/mm3 (4.0-10.5) 08/18/16 11:50 RBC 4.58 M/mm3 (4.7-6.0) L 08/18/16 11:50 Hgb 13.8 gm/dL (13.5-18.0) 08/18/16 11:50 Hct 41.0 % (42.0-52.0) L 08/18/16 11:50 MCV 89.5 fl (78-100) 08/18/16 11:50 MCH 30.1 pg (27-31) 08/18/16 11:50 MCHC 33.7 g/dl (32-36) 08/18/16 11:50 RDW 15.6 % (11.5-14.0) H 08/18/16 11:50 Plt Count 183 K/mm3 (150-450) 08/18/16 11:50 MPV 11.0 fl (6.0-9.5) H 08/18/16 11:50 Immature Gran % (Auto) 0.90 % (0.001-0.429) H 08/18/16 11:50 Immature Gran # (Auto) 0.07 K/mm3 (0.000-0.0310) H 08/18/16 11:50 Neutrophils % 79.5 % (42-75.0) H 08/18/16 11:50 Lymphocytes % 10.5 % (20-51) L 08/18/16 11:50 Monocytes % 7.9 % (0.0-9) 08/18/16 11:50 Eosinophils % 0.8 % (0.0-3.0) 08/18/16 11:50 Basophils % 0.4 % (0.0-1.0) 08/18/16 11:50 Nucleated RBC % 0.0 k/mm3 (0-1) 08/18/16 11:50 Neutrophils # 6.3 K/mm3 (1.3-6.0) H 08/18/16 11:50 Lymphocytes # 0.8 k/mm3 (1.5-3.5) L 08/18/16 11:50 Monocytes # 0.6 k/mm3 (0.0-1.0) 08/18/16 11:50 Eosinophils # 0.1 k/mm3 (0.0-0.7) 08/18/16 11:50 Absolute Basophils 0.0 k/mm3 (0.0-0.1) 08/18/16 11:50 PT 11.4 Seconds (9.4-11.4) 08/18/16 11:50 INR (Anticoag Therapy) 1.10 INR (0.90-1.10) 08/18/16 11:50 PTT (Price) 32.3 Seconds (24-32) H 08/18/16 11:50 D-Dimer 6.11 mg/L (0.19-0.49) H 08/18/16 11:50 Sodium 141 mmol/L (132-142) 08/18/16 11:50 Plasma Sodium 141 mmol/L (130-142) 08/18/16 11:50 Potassium 3.9 mmol/L (3.4-4.6) D 08/18/16 11:50 Chloride 105 mmol/L (97-106) 08/18/16 11:50 Carbon Dioxide 29.2 mmol/L (24-32.6) 08/18/16 11:50 Anion Gap 10.7 mmol/L (6.8-13.8) 08/18/16 11:50 BUN 11 mg/dL (6-23) 08/18/16 11:50 Creatinine 1.13 mg/dL (0.4-1.4) 08/18/16 11:50 Est GFR (Non-Af Amer) 67 mL/min (60-130) 08/18/16 11:50 BUN/Creatinine Ratio 9.7 (9.0-21.6) 08/18/16 11:50 Random Glucose 92 mg/dL (70-110) 08/18/16 11:50 Calcium 9.3 mg/dL (7.9-10.9) 08/18/16 11:50 Calcium Adj for Albumin 10.2 mg/dL (8.4-10.2) 08/18/16 11:50 Total Bilirubin 0.9 mg/dL (0.0-1.1) 08/18/16 11:50 AST 19 U/L (0-48) 08/18/16 11:50 ALT 12 U/L (19-67) L 08/18/16 11:50 Alkaline Phosphatase 76 U/L (50-170) 08/18/16 11:50 Troponin I Less than 0.017 ng/ml (0.00-0.10) 08/18/16 11:50 B-Natriuretic Peptide 3569 pg/mL (5-650) H 08/18/16 11:50 Total Protein 6.2 gm/dL (6.2-8.2) 08/18/16 11:50 Albumin 2.5 gm/dl (3.4-5.0) L 08/18/16 11:50 Urine Color Dark yellow 08/18/16 15:09 Urine Appearance Slightly cloudy 08/18/16 15:09 Urine pH 7.5 pH (5.0-7.0) 08/18/16 15:09 Ur Specific [place] 1.010 SP.GR. (1.005-1.030) 08/18/16 15:09 Urine Protein Negative mg/dL (NEGATIVE) 08/18/16 15:09 Urine Glucose (UA) Negative mg/dL (NEGATIVE) 08/18/16 15:09 Urine Ketones Negative mg/dL (NEGATIVE) 08/18/16 15:09 Urine Blood 250 /ul (NEGATIVE) H 08/18/16 15:09 Urine Nitrate Negative (NEGATIVE) 08/18/16 15:09 Urine Bilirubin Negative mg/dl (NEGATIVE) 08/18/16 15:09 Urine Urobilinogen 8 EU/dl (NORMAL) H 08/18/16 15:09 Ur Leukocyte Esterase 75 /ul (NEGATIVE) H 08/18/16 15:09 Urine RBC 10-25 /hpf (0-5) H 08/18/16 15:09 Urine WBC 5-10 /hpf (0-5) H 08/18/16 15:09 Ur Epithelial Cells None seen /hpf (0-5) 08/18/16 15:09 Calcium Oxalate Crystal Few - 1+ /hpf (NONE) H 08/18/16 15:09 Urine Bacteria None seen (NONE) 08/18/16 15:09 Urine Culture Comments Culture to follow 08/18/16 15:09 Gastric Occult Blood Positive H 08/18/16 11:50 Assessment/Plan - Narrative Narrative: We will need to try to balance the gi bleeding with pulmonary. Estimate stay of 7-10 days. Hopefully will be also able to handle his tempestuous personality. - Assessment/Plan (1) DVT (deep venous thrombosis) Problem: Acute Qualifiers: DVT location: lower extremity Affected thrombotic vein of extremity: unspecified vein of extremity Chronicity: acute Laterality: unspecified laterality Qualified Code(s): I82.409 - Acute embolism and thrombosis of unspecified deep veins of unspecified lower extremity (2) GI bleed Problem: Acute Qualifiers: GI bleed type/associated pathology: gastrointestinal hemorrhage with hematemesis Qualified Code(s): K92.0 - Hematemesis (3) Pulmonary embolism Problem: Acute Qualifiers: Pulmonary embolism type: other Chronicity: acute Acute cor pulmonale presence: without acute cor pulmonale Qualified Code(s): I26.99 - Other pulmonary embolism without acute cor pulmonale (4) CHF (congestive heart failure) Problem: Chronic Qualifiers: Congestive heart failure type: unspecified congestive heart failure type Congestive heart failure chronicity: acute on chronic Qualified Code(s): I50.9 - Heart failure, unspecified (5) COPD (chronic obstructive pulmonary disease) Problem: Chronic Qualifiers: COPD type: unspecified COPD Qualified Code(s): J44.9 - Chronic obstructive pulmonary disease, unspecified (6) Dementia Problem: Acute (7) Noncompliance with medication regimen Problem: Chronic
[2016-08-18 23:31] LABS: Hematocrit 34.8 % (42.0-52.0); Hemoglobin 11.7 gm/dL (13.5-18.0)
[2016-08-19] MEDS: SUCRALFATE 1 G/10 ML UDC PO SCH ×6 (00:54→20:59)
[2016-08-19] MEDS: HEPARIN SODIUM,PORCINE 5,000 UNITS/ML VIAL IV SCH ×3 (00:54→16:49)
[2016-08-19] MEDS ORDERED: MORPHINE SULFATE 4 MG/ML SYRG IV PRN (01:56)
[2016-08-19] MEDS: DEXTROSE 5%-NORMAL SALINE 1,000 ML IV PRN ×3 (03:21→18:48)
[2016-08-19] MEDS: PANTOPRAZOLE SODIUM 40 MG in NORMAL SALINE 100 ML IV SCH ×4 (03:22→18:48)
[2016-08-19 05:34] LABS: Hematocrit 34.6 % (42.0-52.0); Hemoglobin 11.2 gm/dL (13.5-18.0)
[2016-08-19 05:50] LABS: Anion Gap 10.3 mmol/L (6.8-13.8); BUN/Creatinine Ratio 13.2 (9.0-21.6); Calcium * 8.4 mg/dL (7.9-10.9); Carbon Dioxide 24.9 mmol/L (24-32.6); Estimated Creat Clear 56.9; Potassium 4.2 mmol/L (3.4-4.6)
[2016-08-19] MEDS ORDERED: WARFARIN SODIUM 10 MG TABLET PO ONE (08:56)
[2016-08-19] MEDS ORDERED: BISACODYL 5 MG TABLET.DR PO SCH (09:00)
--- NOTE | 2016-08-19 09:04 | PN ---
Subjective - Date and Time Seen Date: 08/19/16 Time: 08:59 Subjective Narrative: No vomiting. Lo dose morphine helps knee pain. No stools. Admission plain abdominal xray shows constipation. Hgb drifting down. Objective - Review of Systems Generalized/Overall Review: Reports: Malaise EENTM: Reports: No Symptoms Reported Respiratory: Reports: No Symptoms Reported Cardiac: Reports: No Symptoms Reported Abdominal: Reports: No Symptoms Reported Genitourinary Symptoms: Reports: No Symptoms Reported Musculoskeletal Complaints: Reports: Joint Pain Neurological: Reports: No Symptoms Reported Skin: Reports: No Symptoms Reported Endocrine: Reports: No Symptoms Reported Misc: All systems neg except as marked - Vitals Vitals: Last Vital Signs Selected Entries 08/18/16 08/19/16 16:44 07:48 Temperature 37.0 C 37.2 C Temperature Oral Temporal Artery Source Scan Pulse Rate 96 83 Respiratory 18 12 Rate Respiratory Normal Normal Depth Respiratory Normal Effort Non-Labored Blood Pressure 104/59 88/54 Blood Pressure Supine Supine Position O2 Sat by Pulse 95 93 Oximetry Oxygen Delivery Nasal Cannula Method Oxygen Flow 2 2 Rate - Abnormal Lab Findings Abnormal Lab Findings: Abnormal Lab Results 08/18/16 08/18/16 08/19/16 Range/Units 17:35 23:30 05:25 Hgb 13.4 L 11.7 L 11.2 L (13.5-18.0) gm/dL Hct 40.2 L 34.8 L 34.6 L (42.0-52.0) % Chloride (97-106) mmol/L Random Glucose (70-110) mg/dL 08/19/16 Range/Units 05:25 Hgb (13.5-18.0) gm/dL Hct (42.0-52.0) % Chloride 111 H (97-106) mmol/L Random Glucose 117 H (70-110) mg/dL - Exam Constitutional: Present: Alert, Cooperative, Well developed, Well nourished, No distress ENT Exam: Present: normal ENT inspection Neck: Present: normal inspection Respiratory: Present: lungs clear, normal breath sounds Cardiovascular/Chest: Present: regular rate, rhythm Abdomen: Present: Normal bowel sounds, soft, nontender, no rebound tenderness, no hepatospenomegaly, no masses, distended - mild Extremity: Present: pedal edema Skin Exam: Present: no cyanosis, cool/dry Neurologic: Present: alert Appearance: Present: appropriate appearance, neat Eye contact: Present: cooperative Cauti Physician Documentation - Urinary Catheter Management Urethral (Nicole) Date of Insertion: 08/18/16 Time of Insertion: 15:15 Assessment/Plan Plan Narrative: Dulcolax. Ensure clear. Watch hemoglobin. Watch stools. No good anticoagulation options in the setting of coffee ground emesis. Will embark with coumadin. - Problems/Diagnosis (1) DVT (deep venous thrombosis) Problem: Acute Qualifiers: DVT location: lower extremity Affected thrombotic vein of extremity: unspecified vein of extremity Chronicity: acute Laterality: unspecified laterality Qualified Code(s): I82.409 - Acute embolism and thrombosis of unspecified deep veins of unspecified lower extremity (2) GI bleed Problem: Acute Qualifiers: GI bleed type/associated pathology: gastrointestinal hemorrhage with hematemesis Qualified Code(s): K92.0 - Hematemesis (3) Pulmonary embolism Problem: Acute Qualifiers: Pulmonary embolism type: other Chronicity: acute Acute cor pulmonale presence: without acute cor pulmonale Qualified Code(s): I26.99 - Other pulmonary embolism without acute cor pulmonale (4) CHF (congestive heart failure) Problem: Chronic Qualifiers: Congestive heart failure type: unspecified congestive heart failure type Congestive heart failure chronicity: acute on chronic Qualified Code(s): I50.9 - Heart failure, unspecified (5) COPD (chronic obstructive pulmonary disease) Problem: Chronic Qualifiers: COPD type: unspecified COPD Qualified Code(s): J44.9 - Chronic obstructive pulmonary disease, unspecified (6) Dementia Problem: Acute (7) Noncompliance with medication regimen Problem: Chronic (8) Constipation Problem: Acute
[2016-08-19 09:09] LABS: Prothrombin Time (Patient) 12.5 Seconds (9.4-11.4)
[2016-08-19 09:17] LABS: INR 1.2 INR (0.90-1.10)
[2016-08-19 11:37] LABS: Hematocrit 35.1 % (42.0-52.0); Hemoglobin 11.5 gm/dL (13.5-18.0)
--- NOTE | 2016-08-19 11:50 | CONS ---
[facility] - General Date of Service: 08/19/16 Narrative: Asked to see this patient regarding coffe ground emesis/UGIB while anticoagulated for DVT/Multiple PE. The patient's hemoglobin is reasonably stable. He is complaining of some minor abdominal discomfort. He is well known to me. He has chronic obstipation. This case was discussed with Dr. Russell Bach last night. I agree with the treatment plan. Source: patient, RN/MD, old records Exam Limitations: no limitations - History of Present Illness Allergies/Adverse Reactions: Allergies codeine [Codeine] Allergy (Verified 08/18/16 16:41) Nausea ketorolac tromethamine [From Toradol] Adverse Reaction (Verified 08/18/16 16:41) Home Medications: Home Medications Medication Instructions Recorded Last Taken Albuterol Sulfate/Ipratropium 3 ml IH QID 01/21/16 Unknown [Duoneb 2.5-0.5MG/3ML Soln] FLUoxetine HCL [Prozac] 20 mg PO DAILY 07/28/16 Unknown Furosemide 20 mg PO DAILY 07/28/16 Unknown Potassium Chloride [Klor-Con 10] 20 meq PO DAILY 07/28/16 Unknown Theophylline Anhydrous 300 mg PO Q12H 07/28/16 Unknown [Theophylline] Atropine Sulfate [Atropine 1% 1 drop SL Q2H PRN 08/18/16 Unknown Ophthalmic Solution] Bisacodyl [Laxative] 10 mg PO TID PRN 08/18/16 Unknown Enoxaparin Sodium [Lovenox] 70 mg SC BID 08/18/16 Unknown Lorazepam 2 mg PO Q4H PRN 08/18/16 Unknown Magnesium Hydroxide [Milk Of 30 ml PO TID PRN 08/18/16 Unknown Magnesia] Megestrol Acetate [Megace 20 mg PO DAILY 08/18/16 Unknown Suspension] Mirtazapine [Remeron] 30 mg PO HS 08/18/16 Unknown Morphine Sulfate [Morphine Sulfate 10 mg PO Q2H PRN 08/18/16 Unknown 10 MG/5ML Oral Solution] Ondansetron HCl 4 mg PO Q4H PRN 08/18/16 Unknown Polyvinyl Alcohol [Artificial 2 drop OP PRN PRN 08/18/16 Unknown Tears] Promethazine HCl [Promethegan] 12.5 mg RC Q4H PRN 06/16/17 Unknown QUEtiapine FUMARATE [Seroquel] 25 mg PO HS 08/18/16 Unknown Ranitidine HCl [Zantac] 150 mg PO BID 08/18/16 Unknown Sennosides/Docusate Sodium 2 tab PO TID PRN 08/18/16 Unknown [Senna-S Tablet] Tiotropium [place] [Spiriva] 18 mcg IH DAILY 08/18/16 Unknown clonazePAM [Klonopin] 0.5 mg PO BID 08/18/16 Unknown predniSONE [Prednisone] 10 mg PO DAILY 08/18/16 Unknown - Patient's Past Medical History Patient History - Medical: Anxiety, Depression, GERD, Osteoarthritis, Renal Failure, UTI'S Patient History - Cardiac/Respiratory: Bronchitis, CHF, COPD, Hypertension Patient History - Cancer: No Hx of Cancer Patient History - Surgical Procedures: Cholecystectomy, Colonoscopy, EGD, T & A Patient History - Other: None - Family History Mother Family History - Medical: , Other Family History - Cardiac/Respiratory: Coronary Heart Disease, Hypertension Family History - Cancer: No pertinent family hx Father Family History - Medical: , History Unknown Family History - Cardiac/Respiratory: History Unknown Family History - Cancer: History Unknown Sister Family History - Medical: History Unknown Family History - Cardiac/Respiratory: Asthma, Hypertension Family History - Cancer: No pertinent family hx - Social History Living Situations: shelter Abuse History: No History of abuse Psych History: Hx of Anxiety, Hx of Depression, Current tx/ever been on anti- depressants or anti-anxiety meds Smoking Status: Former smoker Have you smoked in the past 12 months: No Alcohol Use: none Drug Use: none - Immunizations Immunizations Up to Date: Yes Hx Pneumococcal Vaccination: Yes History of Influenza Vaccine: Yes Procedures ARTERIAL BLD GAS MEASURE (06/10/14) ESOPHAGOGASTRODUODENOSCOPY [EGD] W/CLOSED BIOPSY (08/21/12) EXCISION OF RECTUM, ENDO, DIAGN (09/30/15) EXCISION OF SIGMOID COLON, ENDO, DIAGN (09/30/15) ULTRASONOGRAPHY OF BLADDER (12/18/15) Medications - Medications Current Medications: Current Medications Bisacodyl (Dulcolax) 5 mg PO DAILY [facility] Stop: 09/18/16 09:01 Last Admin: 08/19/16 09:46 Dose: 5 mg Heparin Sodium (Porcine) (Heparin Sodium) 5,000 units IV Q8H [facility] Stop: 09/17/16 17:23 Last Admin: 08/19/16 09:45 Dose: 5,000 units Pantoprazole Sodium 40 mg/ (Sodium Chloride) 100 mls @ 20 mls/hr IV Q5H [facility] Stop: 09/17/16 17:31 Last Admin: 08/19/16 08:57 Dose: 20 mls/hr Dextrose/Sodium Chloride (Dextrose 5%-0.9% Ns) 1,000 mls @ 125 mls/hr IV .Q8H PRN PRN Reason: HYDRATION Stop: 09/17/16 17:29 Last Admin: 08/19/16 03:21 Dose: 125 mls/hr Sucralfate (Carafate Suspension) 1 g PO Q4H [facility] Stop: 09/17/16 16:16 Last Admin: 08/19/16 08:02 Dose: 1 g Review of Systems - Review of Systems Abdominal: Present: Abdominal Pain - mild Misc: All systems neg except as marked Physical Examination - Exam Vital Signs: Vital Signs - Last Taken Temp 36.7 C 08/19/16 10:17 Pulse 84 08/19/16 10:19 Resp 12 08/19/16 10:17 BP 91/51 08/19/16 10:17 Pulse Ox 93 08/19/16 10:17 O2 Oxygen Delivery Method Nasal Cannula Constitutional: Present: Alert, Oriented x3, Cooperative, No distress, Obese ENT Exam: Present: normal ENT inspection Eye Exam: bilateral eye: normal inspection Neck: Present: normal inspection, trachea midline Respiratory: Present: no respiratory distress Abdomen: Present: soft, no hepatospenomegaly, no masses, obese. Absent: guarding, rigidity, rebound tenderness Extremity: Present: normal inspection Skin Exam: Present: warm/dry Neurologic: Present: no motor/sensory deficits - Results and Findings: Lab/Microbiology results last 24 hrs: Abnormal/Pending Laboratory Last 24 HRS 08/19/16 08/19/16 08/19/16 11:30 05:25 05:25 Hgb 11.5 L Hct 35.1 L PT 12.5 H INR (Anticoag Therapy) 1.20 H Chloride 111 H Random Glucose 117 H 08/19/16 08/18/16 08/18/16 05:25 23:30 17:35 Hgb 11.2 L 11.7 L 13.4 L Hct 34.6 L 34.8 L 40.2 L PT INR (Anticoag Therapy) Chloride Random Glucose Culture 08/18/16 16:15 Urine Culture - Preliminary Urine,Catheterized No Growth - Assessments/Findings (1) GI bleed Diagnosis(s): Agree with current Rx. Will follow with you. Problem: Acute Qualifiers: GI bleed type/associated pathology: gastrointestinal hemorrhage with hematemesis Qualified Code(s): K92.0 - Hematemesis
[2016-08-19 17:24] LABS: Hematocrit 31.7 % (42.0-52.0); Hemoglobin 10.3 gm/dL (13.5-18.0)
[2016-08-20] LABS: Hematocrit 33.2 % (42.0-52.0); Hemoglobin 10.5 gm/dL (13.5-18.0)
[2016-08-20] MEDS: SUCRALFATE 1 G/10 ML UDC PO SCH ×7 (00:02→23:34)
[2016-08-20] MEDS: HEPARIN SODIUM,PORCINE 5,000 UNITS/ML VIAL IV SCH ×3 (01:16→16:34)
[2016-08-20] MEDS: DEXTROSE 5%-NORMAL SALINE 1,000 ML IV PRN ×3 (03:37→20:24)
[2016-08-20] MEDS: PANTOPRAZOLE SODIUM 40 MG in NORMAL SALINE 100 ML IV SCH ×7 (04:50→23:33)
[2016-08-20 05:34] LABS: Hematocrit 33.3 % (42.0-52.0); Hemoglobin 10.6 gm/dL (13.5-18.0)
[2016-08-20 05:43] LABS: Prothrombin Time (Patient) 15.3 Seconds (9.4-11.4)
[2016-08-20 05:50] LABS: INR 1.47 INR (0.90-1.10)
--- NOTE | 2016-08-20 08:44 | PN ---
Subjective - Date and Time Seen Date: 08/20/16 Time: 08:38 Subjective Narrative: No vomiting. Lo dose morphine helps knee pain. No stools. Admission plain abdominal xray shows constipation. Hgb drifting down. Objective - Review of Systems Generalized/Overall Review: Reports: Malaise EENTM: Reports: No Symptoms Reported Respiratory: Reports: No Symptoms Reported Cardiac: Reports: No Symptoms Reported Abdominal: Reports: No Symptoms Reported Genitourinary Symptoms: Reports: No Symptoms Reported Musculoskeletal Complaints: Reports: No Symptoms Reported Neurological: Reports: No Symptoms Reported Skin: Reports: No Symptoms Reported Endocrine: Reports: No Symptoms Reported Misc: All systems neg except as marked - Vitals Vitals: Last Vital Signs Selected Entries 08/20/16 06:20 Temperature 36.9 C Temperature Oral Source Pulse Rate 88 Pulse Rhythm Regular Pulse Strength Normal Respiratory 16 Rate Respiratory Normal Depth Respiratory Normal Effort Non-Labored Respiratory Normal Pattern Blood Pressure 103/46 Blood Pressure Supine Position O2 Sat by Pulse 97 Oximetry Oxygen Delivery Room Air Method - Abnormal Lab Findings Abnormal Lab Findings: Abnormal Lab Results 08/19/16 08/19/16 08/19/16 Range/Units 00:00 05:25 11:30 Hgb 10.5 L 11.5 L (13.5-18.0) gm/dL Hct 33.2 L 35.1 L (42.0-52.0) % PT 12.5 H (9.4-11.4) Seconds INR (Anticoag Therapy) 1.20 H (0.90-1.10) INR 08/19/16 08/20/16 08/20/16 Range/Units 17:17 05:10 05:10 Hgb 10.3 L 10.6 L (13.5-18.0) gm/dL Hct 31.7 L 33.3 L (42.0-52.0) % PT 15.3 H (9.4-11.4) Seconds INR (Anticoag Therapy) 1.47 H (0.90-1.10) INR - Exam Constitutional: Present: Alert, Cooperative, Well developed, Well nourished, No distress ENT Exam: Present: normal ENT inspection, hearing grossly normal Neck: Present: normal inspection Respiratory: Present: normal breath sounds, no respiratory distress Cardiovascular/Chest: Present: regular rate, rhythm, no murmur Abdomen: Present: Normal bowel sounds, soft, nontender, nondistended, no rebound tenderness, no hepatospenomegaly, no masses Extremity: Present: non-tender, normal inspection Skin Exam: Present: normal color, warm/dry, no cyanosis Neurologic: Present: alert Appearance: Present: appropriate appearance, neat Eye contact: Present: cooperative, good eye contact Thoughts: Present: persecution Cauti Physician Documentation - Urinary Catheter Management Urethral (Nicole) Date of Insertion: 08/18/16 Time of Insertion: 15:15 Assessment/Plan Plan Narrative: increase dulcolax. advance diet. follow protime. - Problems/Diagnosis (1) DVT (deep venous thrombosis) Problem: Acute Qualifiers: DVT location: lower extremity Affected thrombotic vein of extremity: unspecified vein of extremity Chronicity: acute Laterality: unspecified laterality Qualified Code(s): I82.409 - Acute embolism and thrombosis of unspecified deep veins of unspecified lower extremity (2) GI bleed Problem: Acute Qualifiers: GI bleed type/associated pathology: gastrointestinal hemorrhage with hematemesis Qualified Code(s): K92.0 - Hematemesis (3) Pulmonary embolism Problem: Acute Qualifiers: Pulmonary embolism type: other Chronicity: acute Acute cor pulmonale presence: without acute cor pulmonale Qualified Code(s): I26.99 - Other pulmonary embolism without acute cor pulmonale (4) CHF (congestive heart failure) Problem: Chronic Qualifiers: Congestive heart failure type: unspecified congestive heart failure type Congestive heart failure chronicity: acute on chronic Qualified Code(s): I50.9 - Heart failure, unspecified (5) COPD (chronic obstructive pulmonary disease) Problem: Chronic Qualifiers: COPD type: unspecified COPD Qualified Code(s): J44.9 - Chronic obstructive pulmonary disease, unspecified (6) Dementia Problem: Acute (7) Noncompliance with medication regimen Problem: Chronic (8) Constipation Problem: Acute
[2016-08-20] MEDS: BISACODYL 5 MG TABLET.DR PO SCH ×2 (08:56→20:24)
[2016-08-20] MEDS ORDERED: BISACODYL 5 MG TABLET.DR PO SCH (09:00)
[2016-08-20] MEDS: MORPHINE SULFATE 2 MG/ML DISP.SYRIN IV PRN (09:02)
[2016-08-20 11:33] LABS: Hematocrit 37.3 % (42.0-52.0); Hemoglobin 12.1 gm/dL (13.5-18.0)
--- NOTE | 2016-08-20 12:51 | PN ---
Subjective - Date and Time Seen Date: 08/20/16 Time: 12:48 Subjective Narrative: FU UGIB on Heparin drip for DVT/Multiple PE No new c/o. Tolerated lunch just fine. Objective - Review of Systems Misc: All systems neg except as marked - Vitals Vitals: Last Vital Signs Temp 36.9 C 08/20/16 11:13 Pulse 92 08/20/16 11:17 Resp 16 08/20/16 11:13 BP 103/46 08/20/16 11:13 Pulse Ox 97 08/20/16 11:13 - Abnormal Lab Findings Abnormal Lab Findings: Abnormal Lab Results 08/19/16 08/19/16 08/20/16 Range/Units 00:00 17:17 05:10 Hgb 10.5 L 10.3 L 10.6 L (13.5-18.0) gm/dL Hct 33.2 L 31.7 L 33.3 L (42.0-52.0) % PT (9.4-11.4) Seconds INR (Anticoag Therapy) (0.90-1.10) INR 08/20/16 08/20/16 Range/Units 05:10 11:21 Hgb 12.1 L (13.5-18.0) gm/dL Hct 37.3 L (42.0-52.0) % PT 15.3 H (9.4-11.4) Seconds INR (Anticoag Therapy) 1.47 H (0.90-1.10) INR - Exam Constitutional: Present: Alert, Oriented x3, Cooperative, No distress ENT Exam: Present: normal ENT inspection Neck: Present: normal inspection, trachea midline Respiratory: Present: no respiratory distress Abdomen: Present: soft, nontender, obese, other - distended. Absent: guarding, rigidity, rebound tenderness Skin Exam: Present: warm/dry Cauti Physician Documentation - Urinary Catheter Management Urethral (Nicole) Date of Insertion: 08/18/16 Time of Insertion: 15:15 Assessment/Plan Plan Narrative: A: Reasonably stable Hgb. Benign abdominal exam. P: Following - Problems/Diagnosis (1) GI bleed Problem: Acute Qualifiers: GI bleed type/associated pathology: gastrointestinal hemorrhage with hematemesis Qualified Code(s): K92.0 - Hematemesis
[2016-08-20] MEDS ORDERED: WARFARIN SODIUM 7.5 MG TABLET PO ONE (17:00)
[2016-08-21] MEDS: HEPARIN SODIUM,PORCINE 5,000 UNITS/ML VIAL IV SCH (02:39)
[2016-08-21] MEDS: DEXTROSE 5%-NORMAL SALINE 1,000 ML IV PRN ×3 (04:33→20:33)
[2016-08-21] MEDS: PANTOPRAZOLE SODIUM 40 MG in NORMAL SALINE 100 ML IV SCH ×4 (04:34→20:32)
[2016-08-21] MEDS: SUCRALFATE 1 G/10 ML UDC PO SCH ×5 (04:34→20:31)
[2016-08-21 06:16] LABS: Prothrombin Time (Patient) 54.1 Seconds (9.4-11.4)
[2016-08-21 06:31] LABS: INR 5.2 INR (0.90-1.10)
[2016-08-21] MEDS: BISACODYL 5 MG TABLET.DR PO SCH ×3 (09:44→20:31)
[2016-08-21] MEDS: MORPHINE SULFATE 2 MG/ML DISP.SYRIN IV PRN (13:30)
--- NOTE | 2016-08-21 16:36 | PN ---
Subjective - Date and Time Seen Date: 08/21/16 Time: 16:31 Subjective Narrative: No vomiting. Lo dose morphine helps knee pain. Bowels working, brown in color. hgb stable. Echo from 2015 shows diastolic dysfunction and RVSP of 31 mm Hg. Objective - Review of Systems Generalized/Overall Review: Reports: Malaise EENTM: Reports: No Symptoms Reported Respiratory: Reports: No Symptoms Reported Cardiac: Reports: No Symptoms Reported Abdominal: Reports: No Symptoms Reported Genitourinary Symptoms: Reports: No Symptoms Reported Musculoskeletal Complaints: Reports: No Symptoms Reported Neurological: Reports: No Symptoms Reported Skin: Reports: No Symptoms Reported Endocrine: Reports: No Symptoms Reported Misc: All systems neg except as marked - Vitals Vitals: Last Vital Signs Selected Entries 08/21/16 15:00 Temperature 37.0 C Temperature Tympanic Source Pulse Rate 74 Respiratory 16 Rate Respiratory Normal Depth Respiratory Normal Effort Respiratory Normal Pattern Blood Pressure 94/55 Blood Pressure Supine Position O2 Sat by Pulse 96 Oximetry Oxygen Delivery Room Air Method - Abnormal Lab Findings Abnormal Lab Findings: Abnormal Lab Results 08/21/16 Range/Units 05:55 PT 54.1 H (9.4-11.4) Seconds INR (Anticoag Therapy) 5.20 H* (0.90-1.10) INR - Exam Constitutional: Present: Alert, Cooperative, Well developed, Well nourished, No distress ENT Exam: Present: normal ENT inspection Neck: Present: normal inspection Respiratory: Present: normal breath sounds, no respiratory distress Cardiovascular/Chest: Present: regular rate, rhythm, no murmur Abdomen: Present: Normal bowel sounds, soft, nontender, nondistended, no rebound tenderness, no hepatospenomegaly, no masses Extremity: Present: pedal edema Skin Exam: Present: normal color, warm/dry, no cyanosis Neurologic: Present: alert Appearance: Present: appropriate appearance, neat Cauti Physician Documentation - Urinary Catheter Management Urethral (Nicole) Date of Insertion: 08/18/16 Time of Insertion: 15:15 Assessment/Plan Plan Narrative: hold coumadin, inr high. stop heparin. perhaps back to fpc tomorrow. - Problems/Diagnosis (1) DVT (deep venous thrombosis) Problem: Acute Qualifiers: DVT location: lower extremity Affected thrombotic vein of extremity: unspecified vein of extremity Chronicity: acute Laterality: unspecified laterality Qualified Code(s): I82.409 - Acute embolism and thrombosis of unspecified deep veins of unspecified lower extremity (2) GI bleed Problem: Acute Qualifiers: GI bleed type/associated pathology: gastrointestinal hemorrhage with hematemesis Qualified Code(s): K92.0 - Hematemesis (3) Pulmonary embolism Problem: Acute Qualifiers: Pulmonary embolism type: other Chronicity: acute Acute cor pulmonale presence: without acute cor pulmonale Qualified Code(s): I26.99 - Other pulmonary embolism without acute cor pulmonale (4) CHF (congestive heart failure) Problem: Chronic Qualifiers: Congestive heart failure type: unspecified congestive heart failure type Congestive heart failure chronicity: acute on chronic Qualified Code(s): I50.9 - Heart failure, unspecified (5) COPD (chronic obstructive pulmonary disease) Problem: Chronic Qualifiers: COPD type: unspecified COPD Qualified Code(s): J44.9 - Chronic obstructive pulmonary disease, unspecified (6) Dementia Problem: Acute (7) Noncompliance with medication regimen Problem: Chronic (8) Constipation Problem: Acute (9) Diastolic dysfunction Problem: Chronic
[2016-08-22] MEDS: SUCRALFATE 1 G/10 ML UDC PO SCH ×6 (01:15→20:06)
[2016-08-22] MEDS: PANTOPRAZOLE SODIUM 40 MG in NORMAL SALINE 100 ML IV SCH ×2 (01:15→10:38)
[2016-08-22] MEDS: DEXTROSE 5%-NORMAL SALINE 1,000 ML IV PRN (05:08)
[2016-08-22 07:48] LABS: INR Greater than 9.60 INR (0.90-1.10)
[2016-08-22] MEDS: BISACODYL 5 MG TABLET.DR PO SCH (08:40)
--- NOTE | 2016-08-22 12:28 | PN ---
Subjective - Date and Time Seen Date: 08/22/16 Time: 08:20 Subjective Narrative: No vomiting. Lo dose morphine helps knee pain. Bowels working, brown in color. hgb stable. INR over 9 Objective - Review of Systems Generalized/Overall Review: Reports: No Symptoms Reported EENTM: Reports: No Symptoms Reported Respiratory: Reports: Cough Cardiac: Reports: No Symptoms Reported Abdominal: Reports: No Symptoms Reported Genitourinary Symptoms: Reports: No Symptoms Reported Musculoskeletal Complaints: Reports: No Symptoms Reported Neurological: Reports: No Symptoms Reported Skin: Reports: No Symptoms Reported Endocrine: Reports: No Symptoms Reported Misc: All systems neg except as marked - Vitals Vitals: Last Vital Signs Temp 36.4 C L 08/22/16 10:00 Pulse 65 08/22/16 10:00 Resp 18 08/22/16 10:00 BP 90/58 08/22/16 10:00 Pulse Ox 97 08/22/16 10:00 - Abnormal Lab Findings Abnormal Lab Findings: Abnormal Lab Results 08/22/16 Range/Units 07:10 PT Greater than 100.0 H (9.4-11.4) Seconds INR (Anticoag Therapy) Greater than 9.60 H* (0.90-1.10) INR - Exam Constitutional: Present: Alert, Cooperative, Well developed, No distress ENT Exam: Present: normal ENT inspection Neck: Present: normal inspection Respiratory: Present: lungs clear, no respiratory distress Cardiovascular/Chest: Present: normal peripheral pulses, regular rate, rhythm, no chest tenderness, no edema Abdomen: Present: Normal bowel sounds, soft, nontender, nondistended, no rebound tenderness, no hepatospenomegaly, no masses Extremity: Present: normal inspection, no pedal edema Skin Exam: Present: normal color, warm/dry, no cyanosis Neurologic: Present: alert, oriented x 3 Appearance: Present: appropriate appearance, neat Eye contact: Present: cooperative, good eye contact Cauti Physician Documentation - Urinary Catheter Management Urethral (Diehl) Date of Insertion: 08/18/16 Time of Insertion: 15:15 Date of Removal: 08/22/16 Time of Removal: 08:10 Assessment/Plan Plan Narrative: DC tele, diehl and iv. check labs in AM. hopefully home in am. monitor stools and hgb. - Problems/Diagnosis (1) DVT (deep venous thrombosis) Problem: Acute Qualifiers: DVT location: lower extremity Affected thrombotic vein of extremity: unspecified vein of extremity Chronicity: acute Laterality: unspecified laterality Qualified Code(s): I82.409 - Acute embolism and thrombosis of unspecified deep veins of unspecified lower extremity (2) GI bleed Problem: Acute Qualifiers: GI bleed type/associated pathology: gastrointestinal hemorrhage with hematemesis Qualified Code(s): K92.0 - Hematemesis (3) Pulmonary embolism Problem: Acute Qualifiers: Pulmonary embolism type: other Chronicity: acute Acute cor pulmonale presence: without acute cor pulmonale Qualified Code(s): I26.99 - Other pulmonary embolism without acute cor pulmonale (4) CHF (congestive heart failure) Problem: Chronic Qualifiers: Congestive heart failure type: unspecified congestive heart failure type Congestive heart failure chronicity: acute on chronic Qualified Code(s): I50.9 - Heart failure, unspecified (5) COPD (chronic obstructive pulmonary disease) Problem: Chronic Qualifiers: COPD type: unspecified COPD Qualified Code(s): J44.9 - Chronic obstructive pulmonary disease, unspecified (6) Dementia Problem: Acute (7) Noncompliance with medication regimen Problem: Chronic (8) Constipation Problem: Acute (9) Diastolic dysfunction Problem: Chronic (10) Elevated INR Problem: Acute
[2016-08-22] MEDS ORDERED: ACETAMINOPHEN 325 MG TABLET PO PRN (13:55)
[2016-08-23] MEDS: SUCRALFATE 1 G/10 ML UDC PO SCH ×2 (01:16→03:19)
--- NOTE | 2016-08-23 05:49 | PN ---
<Ekta Palencia - Last Filed: 08/23/16 05:50> Subjective - Date and Time Seen Date: 08/23/16 Time: 05:32 Subjective Narrative: c/o severe dry mouth. c/o dyspnea but no increase from past 2-3 days per pt. pt unable to void most of day and night but finally voided early am - 200 ml dark willow urine. no cp. Objective - Review of Systems Generalized/Overall Review: Reports: Weakness, Fatigue EENTM: Reports: No Symptoms Reported Respiratory: Reports: Shortness of Breath. Denies: Orthopnea, Wheezing Cardiac: Reports: No Symptoms Reported Abdominal: Reports: No Symptoms Reported Genitourinary Symptoms: Reports: Other - infrequent urination; concentrated urine. Musculoskeletal Complaints: Reports: No Symptoms Reported Neurological: Reports: No Symptoms Reported Skin: Reports: No Symptoms Reported Endocrine: Reports: No Symptoms Reported Misc: All systems neg except as marked - Vitals Vitals: Last Vital Signs Temp 36.5 C 08/23/16 03:00 Pulse 65 08/23/16 03:00 Resp 18 08/23/16 03:00 BP 116/67 08/23/16 03:00 Pulse Ox 100 08/23/16 03:00 - Abnormal Lab Findings Abnormal Lab Findings: Abnormal Lab Results 08/22/16 Range/Units 07:10 PT Greater than 100.0 H (9.4-11.4) Seconds INR (Anticoag Therapy) Greater than 9.60 H* (0.90-1.10) INR - Exam Constitutional: Present: Cooperative, No distress, Looks Older than stated age ENT Exam: Present: hearing grossly normal Neck: Present: supple, normal inspection Breasts: Present: Exam deferred Respiratory: Present: chest non-tender, lungs clear, no respiratory distress Cardiovascular/Chest: Present: regular rate, rhythm, no chest tenderness, no edema Abdomen: Present: Normal bowel sounds, soft, nontender, nondistended /Rectal: Present: Exam deferred Extremity: Present: normal inspection, no pedal edema Skin Exam: Present: normal color, warm/dry, no cyanosis Cauti Physician Documentation - Urinary Catheter Management Urethral (Nicole) Urethral Indwelling: No Date of Insertion: 08/18/16 Time of Insertion: 15:15 Date of Removal: 08/22/16 Time of Removal: 08:10 Assessment/Plan Plan Narrative: DVT / PE - INR as of 08/22/16 very supratherapeutic (9.0s) - awaiting am labs - due to current DVT / PE - let INR decrease naturally, ie: no vitamin K or FFP. GI bleed - await am labs - stool without gross hematuria - ? decrease frequency of carafate as it increases rate of constipation. - ? start protonix po for GI protection. Constipation - currently on biscodyl 5 mg bid - currently on carafate q 4 hours schedule - ? decrease frequency of carafate as this will make pt more constipated. Diastolic dysfunction / CHF - weight stable x24 hours - possibly a little dry due to c/o dry mouth - encourage po intake - offered ice chips for pt as well - await am labs Elevated INR - due to DVT/PE, will let INR decrease naturally and without intervention. Code status: DNR VTE: none - INR supratherapeutic GI proph: ? start protonix? - Problems/Diagnosis (1) Constipation Problem: Acute QualifierTitle: Constipation type: unspecified constipation type Qualified Code(s): K59.00 - Constipation, unspecified (2) DVT (deep venous thrombosis) Problem: Acute QualifierTitle: DVT location: lower extremity Affected thrombotic vein of extremity: unspecified vein of extremity Chronicity: acute Laterality: unspecified laterality Qualified Code(s): I82.409 - Acute embolism and thrombosis of unspecified deep veins of unspecified lower extremity (3) Elevated INR Problem: Acute (4) GI bleed Problem: Acute QualifierTitle: GI bleed type/associated pathology: gastrointestinal hemorrhage with hematemesis Qualified Code(s): K92.0 - Hematemesis (5) Pulmonary embolism Problem: Acute QualifierTitle: Pulmonary embolism type: other Chronicity: acute Acute cor pulmonale presence: without acute cor pulmonale Qualified Code(s): I26.99 - Other pulmonary embolism without acute cor pulmonale (6) CHF (congestive heart failure) Problem: Chronic QualifierTitle: Congestive heart failure type: unspecified congestive heart failure type Congestive heart failure chronicity: chronic Qualified Code(s): I50.9 - Heart failure, unspecified (7) COPD (chronic obstructive pulmonary disease) Problem: Chronic QualifierTitle: COPD type: unspecified COPD Qualified Code(s): J44.9 - Chronic obstructive pulmonary disease, unspecified (8) Diastolic dysfunction Problem: Chronic (9) Dementia Problem: Chronic QualifierTitle: Dementia type: unspecified type Dementia behavioral disturbance: without behavioral disturbance Qualified Code(s): F03.90 - Unspecified dementia without behavioral disturbance (10) Noncompliance with medication regimen Problem: Chronic <Grabiel Stoddard - Last Filed: 08/23/16 13:40> Subjective Subjective Narrative: I agree with her assessment. he is malnutriated. we will provide nutrient supplements, potassium and breathing treatments. we will monitor his labs and INR at the residential. Objective - Vitals Vitals: Last Vital Signs Temp 36.8 C 08/23/16 11:02 Pulse 78 08/23/16 11:02 Resp 20 08/23/16 11:02 BP 132/78 08/23/16 11:02 Pulse Ox 96 08/23/16 11:02 - Abnormal Lab Findings Abnormal Lab Findings: Abnormal Lab Results 08/23/16 08/23/16 08/23/16 Range/Units 05:25 05:25 05:25 RBC 3.84 L (4.7-6.0) M/mm3 Hgb 11.2 L (13.5-18.0) gm/dL Hct 33.9 L (42.0-52.0) % RDW 15.7 H (11.5-14.0) % MPV 11.5 H (6.0-9.5) fl Immature Gran % (Auto) 1.30 H (0.001-0.429) % Immature Gran # (Auto) 0.07 H (0.000-0.0310) K/mm3 Lymphocytes # 1.1 L (1.5-3.5) k/mm3 PT Greater than 100.0 H (9.4-11.4) Seconds INR (Anticoag Therapy) Greater than 9.60 H* (0.90-1.10) INR Potassium 3.0 L D (3.4-4.6) mmol/L Chloride 111 H (97-106) mmol/L Carbon Dioxide 21.3 L (24-32.6) mmol/L ALT 9 L (19-67) U/L Total Protein 4.7 L (6.2-8.2) gm/dL Albumin 1.5 L (3.4-5.0) gm/dl Assessment/Plan - Problems/Diagnosis (1) DVT (deep venous thrombosis) Problem: Acute Qualifiers: DVT location: lower extremity Affected thrombotic vein of extremity: unspecified vein of extremity Chronicity: acute Laterality: unspecified laterality Qualified Code(s): I82.409 - Acute embolism and thrombosis of unspecified deep veins of unspecified lower extremity (2) GI bleed Problem: Acute Qualifiers: GI bleed type/associated pathology: gastrointestinal hemorrhage with hematemesis Qualified Code(s): K92.0 - Hematemesis (3) Pulmonary embolism Problem: Acute Qualifiers: Pulmonary embolism type: other Chronicity: acute Acute cor pulmonale presence: without acute cor pulmonale Qualified Code(s): I26.99 - Other pulmonary embolism without acute cor pulmonale (4) CHF (congestive heart failure) Problem: Chronic Qualifiers: Congestive heart failure type: unspecified congestive heart failure type Congestive heart failure chronicity: chronic Qualified Code(s): I50.9 - Heart failure, unspecified (5) COPD (chronic obstructive pulmonary disease) Problem: Chronic Qualifiers: COPD type: unspecified COPD Qualified Code(s): J44.9 - Chronic obstructive pulmonary disease, unspecified (6) Dementia Problem: Chronic Qualifiers: Dementia type: unspecified type Dementia behavioral disturbance: without behavioral disturbance Qualified Code(s): F03.90 - Unspecified dementia without behavioral disturbance (7) Noncompliance with medication regimen Problem: Chronic (8) Constipation Problem: Acute Qualifiers: Constipation type: unspecified constipation type Qualified Code(s): K59.00 - Constipation, unspecified (9) Diastolic dysfunction Problem: Chronic (10) Elevated INR Problem: Acute (11) Hypokalemia Problem: Acute (12) Malnutrition due to starvation Problem: Acute
[2016-08-23 05:53] LABS: Hematocrit 33.9 % (42.0-52.0); Hemoglobin 11.2 gm/dL (13.5-18.0); Mean Cell Volume 88.3 fl (78-100); Mean Corpuscular Hemoglobin 29.2 pg (27-31); Mean Platelet Volume 11.5 fl (6.0-9.5); Neutrophil # 3.7 K/mm3 (1.3-6.0); Neutrophil % 67.7 % (42-75.0); Platelet Count 224 K/mm3 (150-450); Red Blood Count 3.84 M/mm3 (4.7-6.0); Red Cell Distribution Width 15.7 % (11.5-14.0); White Blood Count 5.4 K/mm3 (4.0-10.5)
[2016-08-23 06:04] LABS: Albumin * 1.5 gm/dl (3.4-5.0); Anion Gap 12.7 mmol/L (6.8-13.8); BUN/Creatinine Ratio 11.7 (9.0-21.6); Bilirubin, Total 0.3 mg/dL (0.0-1.1); Ca. Corrected For Albumin 9.8 mg/dL (8.4-10.2); Calcium * 8.1 mg/dL (7.9-10.9); Carbon Dioxide 21.3 mmol/L (24-32.6); Total Protein 4.7 gm/dL (6.2-8.2)
[2016-08-23 06:14] LABS: INR Greater than 9.60 INR (0.90-1.10)
--- NOTE | 2016-08-23 07:28 | DS ---
(1) DVT (deep venous thrombosis) Problem: Acute Qualifiers: DVT location: lower extremity Affected thrombotic vein of extremity: unspecified vein of extremity Chronicity: acute Laterality: unspecified laterality Qualified Code(s): I82.409 - Acute embolism and thrombosis of unspecified deep veins of unspecified lower extremity (2) GI bleed Problem: Acute Qualifiers: GI bleed type/associated pathology: gastrointestinal hemorrhage with hematemesis Qualified Code(s): K92.0 - Hematemesis (3) Pulmonary embolism Problem: Acute Qualifiers: Pulmonary embolism type: other Chronicity: acute Acute cor pulmonale presence: without acute cor pulmonale Qualified Code(s): I26.99 - Other pulmonary embolism without acute cor pulmonale (4) CHF (congestive heart failure) Problem: Chronic Qualifiers: Congestive heart failure type: unspecified congestive heart failure type Congestive heart failure chronicity: chronic Qualified Code(s): I50.9 - Heart failure, unspecified (5) COPD (chronic obstructive pulmonary disease) Problem: Chronic Qualifiers: COPD type: unspecified COPD Qualified Code(s): J44.9 - Chronic obstructive pulmonary disease, unspecified (6) Dementia Problem: Chronic Qualifiers: Dementia type: unspecified type Dementia behavioral disturbance: without behavioral disturbance Qualified Code(s): F03.90 - Unspecified dementia without behavioral disturbance (7) Noncompliance with medication regimen Problem: Chronic (8) Constipation Problem: Acute Qualifiers: Constipation type: unspecified constipation type Qualified Code(s): K59.00 - Constipation, unspecified (9) Diastolic dysfunction Problem: Chronic (10) Elevated INR Problem: Acute (11) Hypokalemia Problem: Acute (12) Malnutrition due to starvation Problem: Acute Description of Stay: Remained stable. No apparent active bleeding. INR went quite high due to coumadin. No Vitamin K given due to extensive DVT and pulmonary emboli. Remained pleasant while in the hospital. Low K due to malnutrition. Given nutritional supplements. Prognosis guarded at best. Procedures Performed: none Discharge Disposition: [facility] [place] [facility] [place]: Serious Discharge Activity: Activity as tolerated Discharge Diet: General/regular food - Give ensure or similar between meals and at bedtime Discharge Level of Care:: SNF - Snf Snf Therapy: Physicial Therapy, Occupation Therapy Referrals: Grabiel Stoddard MD [Primary Care Provider] - Problem Oriented Discharge Instructions to Patient/Family: Malnutrition, Pulmonary Embolism, Gastrointestinal Bleeding, [id number] Additional Patient Instructions (free text): CBC BMP Protime in 2 days Complete Home Medications List: Complete Home Medication List: Albuterol Sulfate/Ipratropium [Duoneb 2.5-0.5MG/3ML Soln] 3 ml IH QID 01/21/16 Albuterol Sulfate [Albuterol Sulfate 2.5 MG/0.5ML] 2.5 mg IH Q4H PRN #1 vial.neb 06/05/16 Atropine Sulfate [Atropine 1% Ophthalmic Solution] 1 drop SL Q2H PRN 08/18/16 Acetaminophen [Tylenol] 650 mg PO QID PRN #0 tablet 08/23/16 Bisacodyl [Dulcolax] 5 mg PO DAILY tablet. 08/23/16 Potassium Chloride [Potassium Chloride 40 meq/15ml Liquid] 10 meq PO DAILY btl 08/23/16 Sucralfate [Carafate Suspension] 1 g PO TID udc 08/23/16
[2016-08-23] MEDS ORDERED: BISACODYL 5 MG TABLET.DR PO SCH (09:00)
[2016-08-23] MEDS ORDERED: POTASSIUM CHLORIDE 40 MEQ/15 ML BTL PO SCH ×3 (09:00)
[2016-08-23] MEDS ORDERED: SUCRALFATE 1 G/10 ML UDC PO SCH (09:00)
[2016-08-23 11:03] VITALS: BP 132/78
== END 2016-08-23 13:28 | DRG 299 ==
LOC: ER 11:19 → UNDOADMIN 15:32 → MS 15:32
PROVIDERS: ADMIT Allergy & Immunology; ATTEND Allergy & Immunology
PROC: 0T9B70Z Drainage of Bladder with Drainage Device, Via Natural or Artificial Opening (ICD-10-PCS; principal; 2016-08-18)
DX: I82.409 Acute embolism and thrombosis of unspecified deep veins of unspecified lower extremity (principal); I26.99 Other pulmonary embolism without acute cor pulmonale; K92.0 Hematemesis; I50.32 Chronic diastolic (congestive) heart failure; I10 Essential (primary) hypertension; J44.9 Chronic obstructive pulmonary disease, unspecified; F03.90 Unspecified dementia, unspecified severity, without behavioral disturbance, psychotic disturbance, mood disturbance, and anxiety; K59.00 Constipation, unspecified; M25.562 Pain in left knee; M25.561 Pain in right knee; Z79.01 Long term (current) use of anticoagulants; E63.9 Nutritional deficiency, unspecified
CPT/HCPCS: 36415; 51702; 71275; 74020; 80048; 80053; 81001; 82272; 83880; 84484; 85014; 85018; 85025; 85379; 85610; 85730; 87081; 87086; 93005; 94640; 96374; 99285; J2405